=== PATIENT | male | born 1940 | race Caucasian/White ===

== ENCOUNTER 2016-09-25 08:08 | Day surgery (SDC) | payer OTHER ==
[~2016-09-25] VITALS: Ht 190.5 cm; Wt 97.7 kg
[~2016-09-25 08:08] MED LIST: ACET-1757 PO; AMIO200T PO; AMIO200T42 PO; AMLO2.5T PO; ASCO250T2 PO; ASPI-496 PO; ATOR10TA9 PO; AZIT-14 PO; BUDE0.5A; BUDE10.22 IH; CHOL100018 PO; CITA10TA4 PO; CYAN1SPR2 NAS; ENAL2.5T PO; FERR325T23 PO; FURO20TA3 PO; LEVA0.63 INH; LEVO500T33 PO; METH4TAB2 PO; MOME13HF INH; PRED10TA PO; RIVA15TA PO; RIVA20TA PO; SERT50TA5 PO; TIOT18CA INH
[2016-09-25 08:29] VITALS: BP 113/77
[2016-09-25 08:47] LABS: HEMOGLOBIN 10.8 g/dL (13.7-18.0)
[2016-09-25] MEDS ORDERED: FURO20TA3 PO (08:48)
[2016-09-25] MEDS ORDERED: FERR325T23 PO (08:48)
[2016-09-25] MEDS ORDERED: MOME13HF INH (08:48)
[2016-09-25] MEDS ORDERED: POTA10TA11 PO (08:50)
[2016-09-25 08:54] LABS: BLOOD UREA NITROGEN 20 mg/dL (7-18)
[2016-09-25] MEDS ORDERED: PROPOFOL 10 MG/ML, 20ML ONE (09:40)
== END 2016-09-25 11:15 | disposition home or self-care (01) ==
LOC: CACL 08:08
PROVIDERS: ATTEND Internal Medicine Cardiovascular Disease
DX: I48.0 Paroxysmal atrial fibrillation (principal); I10 Essential (primary) hypertension; I25.10 Atherosclerotic heart disease of native coronary artery without angina pectoris; J44.1 Chronic obstructive pulmonary disease with (acute) exacerbation; Z95.1 Presence of aortocoronary bypass graft; Z87.891 Personal history of nicotine dependence; G47.33 Obstructive sleep apnea (adult) (pediatric); I27.2 Other secondary pulmonary hypertension; Z99.81 Dependence on supplemental oxygen; E78.2 Mixed hyperlipidemia; E78.00 Pure hypercholesterolemia, unspecified; D64.9 Anemia, unspecified; I35.8 Other nonrheumatic aortic valve disorders; J96.11 Chronic respiratory failure with hypoxia; Z82.49 Family history of ischemic heart disease and other diseases of the circulatory system
CPT/HCPCS: 36415; 80048; 85025; 85610; 92960; 93005; J2704

== ENCOUNTER 2016-09-28 10:12 | Emergency (ER) | payer OTHER ==
[~2016-09-28] VITALS: Ht 190.5 cm; Wt 100.5 kg
[~2016-09-28 10:12] MED LIST changes: +POTA10TA11 PO
[2016-09-28] MEDS ORDERED: L.E.T SOLUTION TP ONE ×2 (10:48→11:00)
[2016-09-28] MEDS ORDERED: HYDROcodone/APAP 5/325 TABLET PO ONE (11:00)
[2016-09-28] MEDS ORDERED: HYDROcodone/APAP 5/325 TABLET ONE (11:22)
[2016-09-28 13:03] VITALS: BP 110/68
== END 2016-09-28 13:08 | disposition home or self-care (01) ==
LOC: ED 11:00
DX: S51.012A Laceration without foreign body of left elbow, initial encounter (principal); S81.012A Laceration without foreign body, left knee, initial encounter; S20.212A Contusion of left front wall of thorax, initial encounter; I48.91 Unspecified atrial fibrillation; I10 Essential (primary) hypertension; I25.2 Old myocardial infarction; J44.9 Chronic obstructive pulmonary disease, unspecified; W01.0XXA Fall on same level from slipping, tripping and stumbling without subsequent striking against object, initial encounter; Y93.01 Activity, walking, marching and hiking; Y99.8 Other external cause status; Y92.009 Unspecified place in unspecified non-institutional (private) residence as the place of occurrence of the external cause
CPT/HCPCS: 76705; 99284

== ENCOUNTER 2017-09-30 12:24 | Inpatient (IN) | payer OTHER ==
[~2017-09-30] VITALS: Ht 190.5 cm; Wt 103.5 kg
[~2017-09-30 12:24] MED LIST changes: -AZIT-14 PO; +AZIT250T89 PO; +CEFD300C37 PO; +CHOL100012 PO; -CHOL100018 PO; +DOXY100T PO; -LEVO500T33 PO; +LEVO500T47 PO; +PRED5TAB PO
[2017-09-30] MEDS ORDERED: ONDANSETRON 2MG/ML, 2ML IVPush ONE (14:00)
[2017-09-30] MEDS ORDERED: SODIUM CHLORIDE FLUSH 10ML SYR IVF ONE (14:00)
[2017-09-30] MEDS ORDERED: MORPHINE SULFATE 4 MG/ML, 1ML ONE ×2 (14:09→14:51)
[2017-09-30] MEDS ORDERED: ONDANSETRON ODT 4 MG ONE (14:09)
[2017-09-30] MEDS: MORPHINE SULFATE 4 MG/ML, 1ML IVPush PRN ×3 (14:11→19:33)
[2017-09-30 14:15] LABS: BASOPHILS # (AUTO) 0.05 x10^3/uL (0-0.1); BASOPHILS % (AUTO) 1 % (0-1); EOSINOPHILS # (AUTO) 0.09 x10^3/uL (0-0.4); EOSINOPHILS % (AUTO) 1 % (1-7); LYMPHOCYTES # (AUTO) 0.59 x10^3/uL (1-3.4); LYMPHOCYTES % (AUTO) 9 % (22-44); MD NO; MEAN CORPUSCULAR HEMOGLOBIN 31.4 pg (27.5-34.5); MEAN CORPUSCULAR HGB CONC 32.9 g/dL (33.2-36.2); MEAN CORPUSCULAR VOLUME 95.3 fL (81-97); MEAN PLATELET VOLUME 8.3 fL (7.4-10.4); MONOCYTES # (AUTO) 0.39 x10^3/uL (0.2-0.8); MONOCYTES % (AUTO) 6 % (2-9); NEUTROPHILS # (AUTO) 5.77 x10^3/uL (1.8-6.8); NEUTROPHILS % (AUTO) 84 % (42-75); PLATELET COUNT 186 x10^3/uL (130-400); RED BLOOD COUNT 3.59 x10^6/uL (4.38-5.82); RED CELL DISTRIBUTION WIDTH 14.4 % (9.4-14.8)
[2017-09-30 14:25] LABS: CHLORIDE 106 mmol/L (98-107)
[2017-09-30 14:26] LABS: ALANINE AMINOTRANSFERASE 24 U/L (12-78); ALBUMIN 4.1 g/dL (3.4-5.0); ANION GAP 8 mmol/L (5-15); CALCIUM 8.6 mg/dL (8.5-10.1); CREATININE 1.07 mg/dL (0.7-1.3)
[2017-09-30 14:28] LABS: ALKALINE PHOSPHATASE 72 U/L (45-117); BILIRUBIN,TOTAL 0.9 mg/dL (0.2-1.0); TOTAL PROTEIN 7.2 g/dL (6.4-8.2)
[2017-09-30] MEDS ORDERED: HYDROmorphone 2 MG/ML, 1ML ONE (15:20)
[2017-09-30] MEDS ORDERED: HYDROmorphone 1 MG/ML, 1ML IV ONE (15:30)
[2017-09-30] MEDS ORDERED: CEFOTETAN PMX 1GM/50ML 50 ML ONE (15:47)
[2017-09-30] MEDS ORDERED: CEFOTETAN PMX 1GM/50ML 50 ML IV ONE (16:00)
[2017-09-30 16:05] LABS: INTERNATIONAL NORMALIZED RATIO 1.24 (0.93-1.1); PROTHROMBIN TIME 12.7 Seconds (9.6-11.5)
[2017-09-30] MEDS ORDERED: ONDANSETRON ODT 4 MG PO PRN (17:00)
[2017-09-30] MEDS ORDERED: ONDANSETRON 2MG/ML, 2ML IVPush PRN (17:00)
[2017-09-30] MEDS ORDERED: PROMETHAZINE 25 MG/ML, 1ML IM PRN (17:00)
[2017-09-30] MEDS ORDERED: ALBUTEROL/IPRATROPIUM 2.5MG/0.5MG, 3 ML ONE (17:20)
[2017-09-30 18:20] VITALS: BP 105/65
[2017-09-30] MEDS ORDERED: ALBUTEROL SULFATE 2.5 MG/3 ML NPPB PRN (18:30)
[2017-09-30] MEDS ORDERED: IPRATROPIUM 0.5 MG/2.5 ML INHA NPPB SCH (18:30)
[2017-09-30] MEDS: METRONIDAZOLE PMX 500MG/100ML 100 ML IV SCH (19:33)
[2017-09-30] MEDS: ALBUTEROL/IPRATROPIUM 2.5MG/0.5MG, 3 ML NPPB SCH (20:00)
[2017-09-30] MEDS: ATORVASTATIN 10 MG TABLET PO SCH (20:48)
[2017-09-30] MEDS: CEFTRIAXONE PMX 1GM/50ML 50 ML IV SCH (21:19)
[2017-10-01 01:53] VITALS: BP 104/68
[2017-10-01] MEDS: METRONIDAZOLE PMX 500MG/100ML 100 ML IV SCH ×3 (04:18→20:12)
[2017-10-01] MEDS: MORPHINE SULFATE 4 MG/ML, 1ML IVPush PRN ×2 (04:55→08:41)
[2017-10-01 05:17] LABS: BASOPHILS # (AUTO) 0.04 x10^3/uL (0-0.1); BASOPHILS % (AUTO) 1 % (0-1); EOSINOPHILS % (AUTO) 2 % (1-7); LYMPHOCYTES # (AUTO) 0.88 x10^3/uL (1-3.4); LYMPHOCYTES % (AUTO) 13 % (22-44); MD NO; MEAN CORPUSCULAR HEMOGLOBIN 30.6 pg (27.5-34.5); MEAN CORPUSCULAR HGB CONC 32.2 g/dL (33.2-36.2); MEAN PLATELET VOLUME 8.4 fL (7.4-10.4); MONOCYTES % (AUTO) 9 % (2-9); NEUTROPHILS # (AUTO) 5.26 x10^3/uL (1.8-6.8); NEUTROPHILS % (AUTO) 77 % (42-75); PLATELET COUNT 178 x10^3/uL (130-400); RED BLOOD COUNT 3.65 x10^6/uL (4.38-5.82); RED CELL DISTRIBUTION WIDTH 14.3 % (9.4-14.8)
[2017-10-01 05:36] LABS: CALCIUM 8.6 mg/dL (8.5-10.1); CHLORIDE 103 mmol/L (98-107)
[2017-10-01 05:42] LABS: ALANINE AMINOTRANSFERASE 21 U/L (12-78); ALKALINE PHOSPHATASE 72 U/L (45-117); ANION GAP 7 mmol/L (5-15); BILIRUBIN,TOTAL 0.9 mg/dL (0.2-1.0); CREATININE 1.16 mg/dL (0.7-1.3)
[2017-10-01 05:52] LABS: CULTURE INDICATED? NO; MICROSCOPIC NOT IND
[2017-10-01] MEDS: ALBUTEROL/IPRATROPIUM 2.5MG/0.5MG, 3 ML NPPB SCH ×4 (06:49→19:34)
[2017-10-01] MEDS ORDERED: BUPIVACAINE/PF 0.5% ONE (06:58)
[2017-10-01 08:11] VITALS: BP 108/65
[2017-10-01] MEDS: FLUTICASONE/VILANTEROL 200-25MCG/INH INH SCH (08:40)
[2017-10-01] MEDS: SERTRALINE 50MG TABLET PO SCH (08:40)
[2017-10-01] MEDS: TAMSULOSIN 0.4 MG CAP.ER.24H PO SCH (09:00)
[2017-10-01 12:42] VITALS: BP 99/59
[2017-10-01] MEDS ORDERED: SUGAMMADEX 200 MG/2 ML IVPush ONE ×3 (14:57→17:03)
[2017-10-01] MEDS ORDERED: FENTANYL PF 250 MCG/5ML ONE (16:17)
[2017-10-01] MEDS ORDERED: PROPOFOL 10 MG/ML, 20ML ONE (16:33)
[2017-10-01] MEDS ORDERED: ONDANSETRON 2MG/ML, 2ML ONE (16:33)
[2017-10-01] MEDS ORDERED: PHENYLEPHRINE 10 MG/ML ONE (16:33)
[2017-10-01] MEDS ORDERED: CEFAZOLIN 1,000 MG ONE (16:33)
[2017-10-01] MEDS ORDERED: ALBUTEROL SULFATE 200 PUFFS/8.5 GR INH ONE (16:33)
[2017-10-01] MEDS ORDERED: GLYCOPYRROLATE 0.2MG/1ML, 5ML ONE (16:33)
[2017-10-01] MEDS ORDERED: ROCURONIUM 10 MG/ML,10ML ONE (16:33)
[2017-10-01] MEDS ORDERED: DEXAMETHASONE 4 MG/ML, 1ML ONE (16:33)
[2017-10-01] MEDS ORDERED: NEOSTIGMINE 1 MG/ML, 10ML ONE (16:33)
[2017-10-01] MEDS ORDERED: BUPIVACAINE/PF-EPI 0.5% 1:200K IM ONE (17:03)
[2017-10-01] MEDS ORDERED: ACETAMINOPHEN 325 MG TABLET PO PRN (17:30)
[2017-10-01] MEDS ORDERED: ALBUTEROL/IPRATROPIUM 2.5MG/0.5MG, 3 ML NPPB PRN (17:30)
[2017-10-01] MEDS ORDERED: HYDROmorphone 1 MG/ML, 1ML IV PRN (17:30)
[2017-10-01] MEDS ORDERED: morphine SULFATE 10 MG/ML, 1ML IV PRN (17:30)
[2017-10-01] MEDS ORDERED: LABETALOL 5MG/ML, 20ML IV PRN (17:30)
[2017-10-01] MEDS ORDERED: OXYcodone 5 MG/5 ML ORAL.SOL UDC PO PRN (17:30)
[2017-10-01] MEDS ORDERED: hydrALAzine 20 MG/ML, 1ML IV PRN (17:30)
[2017-10-01] MEDS ORDERED: OXYcodone 5 MG/5 ML ORAL.SOL UDC ONE (17:48)
[2017-10-01] MEDS ORDERED: ACETAMINOPHEN 650 MG/20.3 ML UDC ONE (17:48)
[2017-10-01] MEDS ORDERED: FENTANYL PF 100 MCG/2ML ONE (17:48)
[2017-10-01] MEDS ORDERED: ALBUTEROL/IPRATROPIUM 2.5MG/0.5MG, 3 ML ONE (18:04)
[2017-10-01] MEDS: FENTANYL PF 100 MCG/2ML IV PRN ×2 (18:10→18:20)
[2017-10-01 18:50] VITALS: BP 115/59
[2017-10-01] MEDS: CEFTRIAXONE PMX 1GM/50ML 50 ML IV SCH (21:29)
[2017-10-01] MEDS: ATORVASTATIN 10 MG TABLET PO SCH (22:05)
[2017-10-01 23:30] VITALS: BP 118/71
[2017-10-02 03:15] VITALS: BP 122/71
[2017-10-02] MEDS: METRONIDAZOLE PMX 500MG/100ML 100 ML IV SCH ×3 (03:48→20:34)
[2017-10-02 05:57] LABS: BASOPHILS # (AUTO) 0.01 x10^3/uL (0-0.1); BASOPHILS % (AUTO) 0 % (0-1); EOSINOPHILS % (AUTO) 0 % (1-7); LYMPHOCYTES # (AUTO) 0.23 x10^3/uL (1-3.4); LYMPHOCYTES % (AUTO) 4 % (22-44); MD NO; MEAN CORPUSCULAR HEMOGLOBIN 31.7 pg (27.5-34.5); MEAN CORPUSCULAR HGB CONC 33.5 g/dL (33.2-36.2); MEAN CORPUSCULAR VOLUME 94.7 fL (81-97); MEAN PLATELET VOLUME 8.8 fL (7.4-10.4); MONOCYTES # (AUTO) 0.33 x10^3/uL (0.2-0.8); MONOCYTES % (AUTO) 5 % (2-9); NEUTROPHILS # (AUTO) 5.71 x10^3/uL (1.8-6.8); NEUTROPHILS % (AUTO) 91 % (42-75); PLATELET COUNT 143 x10^3/uL (130-400); RED BLOOD COUNT 3.35 x10^6/uL (4.38-5.82); RED CELL DISTRIBUTION WIDTH 14.5 % (9.4-14.8)
[2017-10-02 06:05] LABS: CHLORIDE 103 mmol/L (98-107)
[2017-10-02 06:13] LABS: ALANINE AMINOTRANSFERASE 25 U/L (12-78); ALBUMIN 3.5 g/dL (3.4-5.0); ALKALINE PHOSPHATASE 64 U/L (45-117); ANION GAP 9 mmol/L (5-15); BILIRUBIN,TOTAL 0.8 mg/dL (0.2-1.0); CALCIUM 8.5 mg/dL (8.5-10.1); CREATININE 0.98 mg/dL (0.7-1.3); TOTAL PROTEIN 6.4 g/dL (6.4-8.2)
[2017-10-02] MEDS: ALBUTEROL/IPRATROPIUM 2.5MG/0.5MG, 3 ML NPPB SCH ×4 (07:00→19:28)
[2017-10-02 07:56] VITALS: BP 115/58
[2017-10-02] MEDS: FLUTICASONE/VILANTEROL 200-25MCG/INH INH SCH (09:00)
[2017-10-02] MEDS: FERROUS SULFATE 325 MG TABLET PO SCH (09:42)
[2017-10-02] MEDS: FUROSEMIDE 20 MG TABLET PO SCH (09:42)
[2017-10-02] MEDS: SERTRALINE 50MG TABLET PO SCH (09:42)
[2017-10-02] MEDS: TAMSULOSIN 0.4 MG CAP.ER.24H PO SCH (09:42)
[2017-10-02 12:36] VITALS: BP 117/63
[2017-10-02] MEDS: SODIUM CHLORIDE 0.9% 1,000 ML IV SCH (15:30)
[2017-10-02 19:21] VITALS: BP 101/64
[2017-10-02] MEDS: ACETAMINOPHEN 325 MG TABLET PO PRN (20:47)
[2017-10-02] MEDS: ATORVASTATIN 10 MG TABLET PO SCH (20:47)
[2017-10-02] MEDS: CEFTRIAXONE PMX 1GM/50ML 50 ML IV SCH (22:03)
[2017-10-03 02:02] VITALS: BP 100/64
[2017-10-03] MEDS: SODIUM CHLORIDE 0.9% 1,000 ML IV SCH ×3 (02:20→23:23)
[2017-10-03] MEDS: ACETAMINOPHEN 325 MG TABLET PO PRN ×3 (02:34→22:28)
[2017-10-03] MEDS: METRONIDAZOLE PMX 500MG/100ML 100 ML IV SCH ×3 (04:19→20:50)
[2017-10-03 05:05] LABS: BASOPHILS # (AUTO) 0.03 x10^3/uL (0-0.1); BASOPHILS % (AUTO) 1 % (0-1); EOSINOPHILS # (AUTO) 0.09 x10^3/uL (0-0.4); EOSINOPHILS % (AUTO) 2 % (1-7); LYMPHOCYTES # (AUTO) 0.51 x10^3/uL (1-3.4); LYMPHOCYTES % (AUTO) 9 % (22-44); MD NO; MEAN CORPUSCULAR HEMOGLOBIN 31.1 pg (27.5-34.5); MEAN CORPUSCULAR HGB CONC 33.2 g/dL (33.2-36.2); MEAN CORPUSCULAR VOLUME 93.9 fL (81-97); MEAN PLATELET VOLUME 8.6 fL (7.4-10.4); MONOCYTES # (AUTO) 0.56 x10^3/uL (0.2-0.8); MONOCYTES % (AUTO) 10 % (2-9); NEUTROPHILS # (AUTO) 4.54 x10^3/uL (1.8-6.8); NEUTROPHILS % (AUTO) 79 % (42-75); PLATELET COUNT 150 x10^3/uL (130-400); RED BLOOD COUNT 3.37 x10^6/uL (4.38-5.82); RED CELL DISTRIBUTION WIDTH 14.3 % (9.4-14.8)
[2017-10-03 05:18] LABS: CHLORIDE 105 mmol/L (98-107)
[2017-10-03 05:29] LABS: ANION GAP 6 mmol/L (5-15); CALCIUM 8.4 mg/dL (8.5-10.1); CREATININE 1.01 mg/dL (0.7-1.3)
[2017-10-03 07:30] VITALS: BP 102/61
[2017-10-03] MEDS ORDERED: BISACODYL 10 MG SUPP PR PRN (07:30)
[2017-10-03] MEDS: ALBUTEROL/IPRATROPIUM 2.5MG/0.5MG, 3 ML NPPB SCH ×7 (08:08→19:10)
[2017-10-03] MEDS: TAMSULOSIN 0.4 MG CAP.ER.24H PO SCH (08:20)
[2017-10-03] MEDS: FLUTICASONE/VILANTEROL 200-25MCG/INH INH SCH (08:20)
[2017-10-03] MEDS: SERTRALINE 50MG TABLET PO SCH (08:20)
[2017-10-03] MEDS: FUROSEMIDE 20 MG TABLET PO SCH (08:20)
[2017-10-03] MEDS: CHOLECALCIFEROL 1,000 UNIT TABLET PO SCH (09:25)
[2017-10-03] MEDS: POLYETHYLENE GLYCOL 17 GM PACKET PO SCH (09:25)
[2017-10-03] MEDS: RIVAROXABAN 20 MG TABLET PO SCH (09:25)
[2017-10-03] MEDS: ASCORBIC ACID 500 MG TABLET PO SCH (09:25)
[2017-10-03] MEDS: POTASSIUM CHLORIDE 20 MEQ TAB.ER.PRT PO SCH (09:25)
[2017-10-03] MEDS: SIMETHICONE 125 MG CHEW TAB PO SCH ×3 (12:14→23:22)
[2017-10-03 13:20] VITALS: BP 133/72
[2017-10-03 18:41] VITALS: BP 111/60
[2017-10-03] MEDS: ATORVASTATIN 10 MG TABLET PO SCH (20:50)
[2017-10-03] MEDS: CEFTRIAXONE PMX 1GM/50ML 50 ML IV SCH (22:28)
[2017-10-04 00:23] VITALS: BP 98/51
[2017-10-04 01:55] VITALS: BP 134/76
[2017-10-04] MEDS: METRONIDAZOLE PMX 500MG/100ML 100 ML IV SCH (04:30)
[2017-10-04 05:27] LABS: ANION GAP 7 mmol/L (5-15); CALCIUM 8.5 mg/dL (8.5-10.1); CHLORIDE 102 mmol/L (98-107)
[2017-10-04 05:28] LABS: CREATININE 0.87 mg/dL (0.7-1.3)
[2017-10-04 05:33] LABS: BASOPHILS # (AUTO) 0.03 x10^3/uL (0-0.1); BASOPHILS % (AUTO) 1 % (0-1); EOSINOPHILS # (AUTO) 0.18 x10^3/uL (0-0.4); EOSINOPHILS % (AUTO) 3 % (1-7); LYMPHOCYTES # (AUTO) 0.55 x10^3/uL (1-3.4); LYMPHOCYTES % (AUTO) 8 % (22-44); MD NO; MEAN CORPUSCULAR HEMOGLOBIN 30.5 pg (27.5-34.5); MEAN CORPUSCULAR HGB CONC 32.8 g/dL (33.2-36.2); MEAN CORPUSCULAR VOLUME 93.1 fL (81-97); MEAN PLATELET VOLUME 8.7 fL (7.4-10.4); MONOCYTES # (AUTO) 0.63 x10^3/uL (0.2-0.8); MONOCYTES % (AUTO) 9 % (2-9); NEUTROPHILS # (AUTO) 5.27 x10^3/uL (1.8-6.8); NEUTROPHILS % (AUTO) 79 % (42-75); PLATELET COUNT 183 x10^3/uL (130-400); RED BLOOD COUNT 3.77 x10^6/uL (4.38-5.82)
[2017-10-04 06:35] VITALS: BP 115/54
[2017-10-04] MEDS: SIMETHICONE 125 MG CHEW TAB PO SCH (06:38)
[2017-10-04] MEDS: SODIUM CHLORIDE 0.9% 1,000 ML IV SCH (07:30)
[2017-10-04] MEDS: RIVAROXABAN 20 MG TABLET PO SCH (07:56)
[2017-10-04] MEDS: TAMSULOSIN 0.4 MG CAP.ER.24H PO SCH ×2 (07:56→08:05)
[2017-10-04] MEDS: CHOLECALCIFEROL 1,000 UNIT TABLET PO SCH (07:56)
[2017-10-04] MEDS: POTASSIUM CHLORIDE 20 MEQ TAB.ER.PRT PO SCH (07:57)
[2017-10-04] MEDS: FERROUS SULFATE 325 MG TABLET PO SCH (07:57)
[2017-10-04] MEDS: FUROSEMIDE 20 MG TABLET PO SCH ×2 (07:57→08:05)
[2017-10-04] MEDS: ASCORBIC ACID 500 MG TABLET PO SCH (07:57)
[2017-10-04] MEDS: SERTRALINE 50MG TABLET PO SCH (08:03)
[2017-10-04] MEDS: POLYETHYLENE GLYCOL 17 GM PACKET PO SCH (08:04)
[2017-10-04] MEDS: FLUTICASONE/VILANTEROL 200-25MCG/INH INH SCH (09:00)
[2017-10-04] MEDS ORDERED: SIME125T10 PO (10:06)
[2017-10-04] MEDS ORDERED: TAMS-11 PO (10:06)
[2017-10-04] MEDS ORDERED: TRAM50TA2 PO (10:06)
[2017-10-04 11:30] VITALS: BP 116/61
[2017-10-04] MEDS ORDERED: METO25TA91 PO (12:04)
== END 2017-10-04 11:50 | disposition home or self-care (01) | DRG 417 ==
LOC: ED 15:23 → EDIP 16:16 → 4NOR 18:08
PROVIDERS: ADMIT Hospitalist; ATTEND Hospitalist
PROC: 0FT44ZZ Resection of Gallbladder, Percutaneous Endoscopic Approach (ICD-10-PCS; principal; 2017-10-01 17:00)
DX: K80.00 Calculus of gallbladder with acute cholecystitis without obstruction (principal); J96.21 Acute and chronic respiratory failure with hypoxia; D68.69 Other thrombophilia; I50.32 Chronic diastolic (congestive) heart failure; I07.1 Rheumatic tricuspid insufficiency; I11.0 Hypertensive heart disease with heart failure; I48.0 Paroxysmal atrial fibrillation; E78.5 Hyperlipidemia, unspecified; I25.10 Atherosclerotic heart disease of native coronary artery without angina pectoris; I35.0 Nonrheumatic aortic (valve) stenosis; I25.2 Old myocardial infarction; Z79.01 Long term (current) use of anticoagulants; Z99.81 Dependence on supplemental oxygen; Z82.49 Family history of ischemic heart disease and other diseases of the circulatory system; Z87.891 Personal history of nicotine dependence; Z86.711 Personal history of pulmonary embolism; Z90.49 Acquired absence of other specified parts of digestive tract; Z95.1 Presence of aortocoronary bypass graft
CPT/HCPCS: 36415; 71045; 80048; 80053; 81003; 83690; 83735; 84100; 85025; 85610; 85730; 88304; 93005; 94640; 96365; 96375; 96376; J0690; J0696; J1100; J1170; J2405; J2704; J2710; J3010; J3490; J7620; J2370; J7030; S0074

== ENCOUNTER → 2018-06-23 | Outpatient (CLI) | payer MEDICARE ==
[~2018-06-23] MED LIST changes: -AMLO2.5T PO; +AMLO2.5T3 PO; +METO25TA91 PO; +SIME125T10 PO; +SPIR25TA PO; +TAMS-11 PO; +TRAM50TA2 PO
== END | disposition home or self-care (01) ==
LOC: CFH 08:40
PROVIDERS: ATTEND Family Medicine
DX: J44.9 Chronic obstructive pulmonary disease, unspecified (principal)
CPT/HCPCS: 71046

== ENCOUNTER 2018-06-29 15:05 | Inpatient (IN) | payer MEDICARE ==
[~2018-06-29] VITALS: Ht 190.5 cm; Wt 98.6 kg
[~2018-06-29 15:05] MED LIST changes: -AMLO2.5T3 PO; +AMLO2.5T5 PO; +SERT50TA28 PO; -SERT50TA5 PO
[2018-06-29 15:36] LABS: BASOPHILS # (AUTO) 0.16 x10^3/uL (0-0.1); BASOPHILS % (AUTO) 1 % (0-1); EOSINOPHILS # (AUTO) 0.01 x10^3/uL (0-0.4); EOSINOPHILS % (AUTO) 0 % (1-7); LYMPHOCYTES # (AUTO) 0.53 x10^3/uL (1-3.4); LYMPHOCYTES % (AUTO) 3 % (22-44); MD NO; MEAN CORPUSCULAR HEMOGLOBIN 31.4 pg (27.5-34.5); MEAN CORPUSCULAR HGB CONC 32.9 g/dL (33.2-36.2); MEAN CORPUSCULAR VOLUME 95.3 fL (81-97); MONOCYTES # (AUTO) 0.63 x10^3/uL (0.2-0.8); MONOCYTES % (AUTO) 4 % (2-9); NEUTROPHILS # (AUTO) 15.42 x10^3/uL (1.8-6.8); NEUTROPHILS % (AUTO) 92 % (42-75); PLATELET COUNT 214 x10^3/uL (130-400); RED BLOOD COUNT 4.19 x10^6/uL (4.38-5.82)
[2018-06-29 15:48] LABS: ALANINE AMINOTRANSFERASE 54 U/L (12-78); ALBUMIN 4.1 g/dL (3.4-5.0); ANION GAP 8 mmol/L (5-15); CALCIUM 9.3 mg/dL (8.5-10.1); CHLORIDE 103 mmol/L (98-107); CREATININE 1.24 mg/dL (0.7-1.3)
[2018-06-29 15:51] LABS: ALKALINE PHOSPHATASE 86 U/L (45-117); BILIRUBIN,TOTAL 0.8 mg/dL (0.2-1.0); TOTAL PROTEIN 6.9 g/dL (6.4-8.2)
--- NOTE | 2018-06-29 17:10 | NUR ---
FROM LOBBY TO ROOM AT THIS TIME
--- NOTE | 2018-06-29 17:21 | NUR ---
PT ARRIVES TO ED WITH C/O OF LEFT ELBOW SWELLING SINCE FRIDAY. PT WAS PLACE DON ABX AT BUT NO CHNAGE HAS BEEN NOTED. PT IS ALSO ON XERALTO WELL. PT DENIES ANY TRUAMA AND REPORTS JUST STARTED FORMING. PT IS ON 3L NC O2 CONCENTRATOR AT HOME. PT HAS GOOD CMS INTACT TO LEFT ARM. PT DOES HAVE BRUSING ON ARMS BUT REPORTS ITS DUE TO THE BLOOD THINNING MEDICATIONS AND IS NORMAL FOR HIM. PT CONNECTED TO MONITORS AND CALL LIGHT IN REACH.
--- NOTE | 2018-06-29 17:43 | NUR ---
piv placed, abx to be started.
[2018-06-29] MEDS ORDERED: VANCOMYCIN 1,700 MG in SODIUM CHLORIDE 0.9% 250 ML IV SCH (18:00)
[2018-06-29] MEDS ORDERED: VANCOMYCIN 1,700 MG in SODIUM CHLORIDE 0.9% 250 ML IV ONE (18:00)
[2018-06-29] MEDS ORDERED: VANCOMYCIN PER PHARMACY MC PRN ×2 (18:00→18:30)
[2018-06-29] MEDS ORDERED: AMPICILLIN/SULBACTAM 3 GM in SODIUM CHLORIDE 0.9% 100 ML IV ONE (18:00)
--- NOTE | 2018-06-29 18:59 | NUR ---
DEALY IN VANCOMYCIN IV DUE TO PHARMACY MAKING BAG.
--- NOTE | 2018-06-29 19:27 | NUR ---
REPORT TO POLA LUCIO
[2018-06-29] MEDS ORDERED: hydrALAzine 20 MG/ML, 1ML IVPush PRN (19:30)
[2018-06-29] MEDS ORDERED: ONDANSETRON ODT 4 MG PO PRN (19:30)
[2018-06-29] MEDS ORDERED: ACETAMINOPHEN 325 MG TABLET PO PRN (19:30)
[2018-06-29] MEDS ORDERED: DOCUSATE 100 MG CAPSULE PO PRN (19:30)
[2018-06-29] MEDS ORDERED: LIDODERM 5% PATCH TD PRN (19:30)
[2018-06-29] MEDS ORDERED: ALBUTEROL SULFATE 2.5MG/0.5ML NEB PRN (19:30)
[2018-06-29 20:02] VITALS: BP 128/78
[2018-06-29] MEDS ORDERED: ALBUTEROL/IPRATROPIUM 2.5MG/0.5MG, 3 ML ONE (20:28)
[2018-06-29] MEDS ORDERED: PHARMACOKINETIC MONITORING MC PRN (20:30)
[2018-06-29] MEDS ORDERED: PHARMACOKINETIC CONSULTATION MC ONE (20:30)
[2018-06-29] MEDS ORDERED: ALBUTEROL SULFATE 2.5MG/0.5ML NPPB SCH (20:30)
[2018-06-29] MEDS: BUDESONIDE 0.5 MG/2 ML INHA INH SCH (20:50)
[2018-06-29] MEDS: ALBUTEROL/IPRATROPIUM 2.5MG/0.5MG, 3 ML NPPB SCH (20:50)
[2018-06-29] MEDS ORDERED: ALBUTEROL/IPRATROPIUM 2.5MG/0.5MG, 3 ML NPPB PRN (21:00)
[2018-06-29] MEDS: ASCORBIC ACID 500 MG TABLET PO SCH (21:00)
[2018-06-29] MEDS: CHOLECALCIFEROL 1,000 UNIT TABLET PO SCH (21:00)
[2018-06-29] MEDS: ATORVASTATIN 10 MG TABLET PO SCH (22:29)
[2018-06-30 02:00] VITALS: BP 127/77
[2018-06-30] MEDS: AMPICILLIN/SULBACTAM 3 GM in SODIUM CHLORIDE 0.9% 100 ML IV SCH ×3 (02:28→17:32)
[2018-06-30] MEDS: DIPHENHYDRAMINE 25 MG CAPSULE PO PRN ×2 (02:38→20:09)
[2018-06-30] MEDS: ALBUTEROL/IPRATROPIUM 2.5MG/0.5MG, 3 ML NPPB SCH ×4 (03:00→20:45)
[2018-06-30] MEDS: BUDESONIDE 0.5 MG/2 ML INHA INH SCH ×2 (06:49→20:45)
[2018-06-30 07:38] LABS: BASOPHILS # (AUTO) 0.23 x10^3/uL (0-0.1); BASOPHILS % (AUTO) 2 % (0-1); EOSINOPHILS # (AUTO) 0.14 x10^3/uL (0-0.4); EOSINOPHILS % (AUTO) 1 % (1-7); LYMPHOCYTES # (AUTO) 0.78 x10^3/uL (1-3.4); LYMPHOCYTES % (AUTO) 7 % (22-44); MD NO; MEAN CORPUSCULAR HEMOGLOBIN 30.6 pg (27.5-34.5); MEAN CORPUSCULAR HGB CONC 32.1 g/dL (33.2-36.2); MEAN CORPUSCULAR VOLUME 95.3 fL (81-97); MEAN PLATELET VOLUME 8.9 fL (7.4-10.4); MONOCYTES # (AUTO) 0.73 x10^3/uL (0.2-0.8); MONOCYTES % (AUTO) 6 % (2-9); NEUTROPHILS # (AUTO) 9.59 x10^3/uL (1.8-6.8); NEUTROPHILS % (AUTO) 84 % (42-75); PLATELET COUNT 182 x10^3/uL (130-400); RED BLOOD COUNT 4.06 x10^6/uL (4.38-5.82); RED CELL DISTRIBUTION WIDTH 16.3 % (9.4-14.8)
[2018-06-30 07:43] LABS: ALBUMIN 3.8 g/dL (3.4-5.0); ANION GAP 4 mmol/L (5-15); CALCIUM 9.2 mg/dL (8.5-10.1); CHLORIDE 102 mmol/L (98-107)
[2018-06-30 07:47] LABS: ALANINE AMINOTRANSFERASE 51 U/L (12-78); ALKALINE PHOSPHATASE 76 U/L (45-117); BILIRUBIN,TOTAL 0.8 mg/dL (0.2-1.0); CREATININE 1.27 mg/dL (0.7-1.3); TOTAL PROTEIN 6.6 g/dL (6.4-8.2)
[2018-06-30 08:00] VITALS: BP 103/62
[2018-06-30] MEDS ORDERED: RIVAROXABAN 20 MG TABLET PO SCH (09:00)
[2018-06-30] MEDS ORDERED: IPRATROPIUM 0.5 MG/2.5 ML INHA HHN SCH (09:00)
[2018-06-30] MEDS: CHOLECALCIFEROL 1,000 UNIT TABLET PO SCH ×2 (09:17→20:08)
[2018-06-30] MEDS: ASCORBIC ACID 500 MG TABLET PO SCH ×2 (09:17→20:08)
[2018-06-30] MEDS: SERTRALINE 50MG TABLET PO SCH (09:17)
[2018-06-30] MEDS: FUROSEMIDE 20 MG TABLET PO SCH (09:17)
[2018-06-30] MEDS ORDERED: HEPARIN 5,000 UNITS/ML, 1ML IV ONE (10:00)
[2018-06-30] MEDS ORDERED: HEPARIN 5,000 UNITS/ML, 1ML IV PRN (10:00)
[2018-06-30] MEDS ORDERED: HEPARIN 25,000 UNITS/500ML PMX 500 ML IV PRN (10:00)
[2018-06-30 10:18] LABS: INTERNATIONAL NORMALIZED RATIO 1.17 (0.93-1.1); PROTHROMBIN TIME 12.3 Seconds (9.6-11.5)
[2018-06-30] MEDS ORDERED: GADOBUTROL 10 MMOL/10 ML PFS ONE (10:27)
[2018-06-30 12:04] VITALS: BP 97/58
[2018-06-30] MEDS: RIVAROXABAN 20 MG TABLET PO SCH (16:32)
[2018-06-30] MEDS: VANCOMYCIN 1,700 MG in SODIUM CHLORIDE 0.9% 250 ML IV SCH (17:32)
[2018-06-30 20:00] VITALS: BP 105/66
[2018-06-30] MEDS: ATORVASTATIN 10 MG TABLET PO SCH (20:09)
[2018-07-01 01:24] VITALS: BP 117/74
[2018-07-01] MEDS: AMPICILLIN/SULBACTAM 3 GM in SODIUM CHLORIDE 0.9% 100 ML IV SCH ×3 (01:36→18:20)
[2018-07-01] MEDS: ALBUTEROL/IPRATROPIUM 2.5MG/0.5MG, 3 ML NPPB SCH ×4 (03:00→21:00)
[2018-07-01 05:28] LABS: BASOPHILS # (AUTO) 0.03 x10^3/uL (0-0.1); BASOPHILS % (AUTO) 0 % (0-1); EOSINOPHILS # (AUTO) 0.11 x10^3/uL (0-0.4); EOSINOPHILS % (AUTO) 1 % (1-7); LYMPHOCYTES # (AUTO) 0.34 x10^3/uL (1-3.4); LYMPHOCYTES % (AUTO) 4 % (22-44); MD NO; MEAN CORPUSCULAR HEMOGLOBIN 31.8 pg (27.5-34.5); MEAN CORPUSCULAR HGB CONC 33.5 g/dL (33.2-36.2); MEAN CORPUSCULAR VOLUME 94.8 fL (81-97); MONOCYTES # (AUTO) 0.52 x10^3/uL (0.2-0.8); MONOCYTES % (AUTO) 6 % (2-9); NEUTROPHILS # (AUTO) 7.68 x10^3/uL (1.8-6.8); NEUTROPHILS % (AUTO) 89 % (42-75); PLATELET COUNT 157 x10^3/uL (130-400); RED BLOOD COUNT 3.76 x10^6/uL (4.38-5.82); RED CELL DISTRIBUTION WIDTH 15.4 % (9.4-14.8)
[2018-07-01 05:35] LABS: CHLORIDE 102 mmol/L (98-107)
[2018-07-01 05:45] LABS: ALANINE AMINOTRANSFERASE 44 U/L (12-78); ALBUMIN 3.4 g/dL (3.4-5.0); ALKALINE PHOSPHATASE 71 U/L (45-117); ANION GAP 5 mmol/L (5-15); CALCIUM 8.7 mg/dL (8.5-10.1); CREATININE 1.08 mg/dL (0.7-1.3); TOTAL PROTEIN 6.2 g/dL (6.4-8.2)
[2018-07-01] MEDS: BUDESONIDE 0.5 MG/2 ML INHA INH SCH ×2 (06:33→21:00)
[2018-07-01 07:44] VITALS: BP 92/51
[2018-07-01] MEDS: FUROSEMIDE 20 MG TABLET PO SCH ×2 (09:00→09:29)
[2018-07-01] MEDS ORDERED: FERROUS SULFATE 325 MG TABLET PO SCH (09:00)
[2018-07-01] MEDS: ASCORBIC ACID 500 MG TABLET PO SCH (09:29)
[2018-07-01] MEDS: FERROUS SULFATE 325 MG TABLET PO SCH (09:29)
[2018-07-01] MEDS: SERTRALINE 50MG TABLET PO SCH (09:30)
[2018-07-01] MEDS: CHOLECALCIFEROL 1,000 UNIT TABLET PO SCH (09:30)
[2018-07-01 13:40] VITALS: BP 100/64
[2018-07-01] MEDS: RIVAROXABAN 20 MG TABLET PO SCH (18:20)
[2018-07-01] MEDS: VANCOMYCIN 1,700 MG in SODIUM CHLORIDE 0.9% 250 ML IV SCH (18:58)
[2018-07-01 19:40] VITALS: BP 114/62
[2018-07-01] MEDS: DIPHENHYDRAMINE 25 MG CAPSULE PO PRN (21:32)
[2018-07-01] MEDS: ATORVASTATIN 10 MG TABLET PO SCH (21:32)
[2018-07-02] MEDS: AMPICILLIN/SULBACTAM 3 GM in SODIUM CHLORIDE 0.9% 100 ML IV SCH ×3 (01:54→17:31)
[2018-07-02 02:00] VITALS: BP 133/78
[2018-07-02] MEDS: ALBUTEROL/IPRATROPIUM 2.5MG/0.5MG, 3 ML NPPB SCH ×4 (03:00→21:40)
[2018-07-02 06:02] LABS: ALBUMIN 3.4 g/dL (3.4-5.0); ANION GAP 6 mmol/L (5-15); CALCIUM 8.9 mg/dL (8.5-10.1); CHLORIDE 103 mmol/L (98-107)
[2018-07-02] MEDS: BUDESONIDE 0.5 MG/2 ML INHA INH SCH ×2 (06:32→21:40)
[2018-07-02 07:30] VITALS: BP 112/71
[2018-07-02] MEDS: ASCORBIC ACID 500 MG TABLET PO SCH (09:00)
[2018-07-02] MEDS: CHOLECALCIFEROL 1,000 UNIT TABLET PO SCH (09:00)
[2018-07-02] MEDS: FUROSEMIDE 20 MG TABLET PO SCH (09:00)
[2018-07-02] MEDS: SERTRALINE 50MG TABLET PO SCH (09:00)
[2018-07-02 13:36] VITALS: BP 109/67
[2018-07-02] MEDS: RIVAROXABAN 20 MG TABLET PO SCH (17:30)
[2018-07-02] MEDS: VANCOMYCIN 1,700 MG in SODIUM CHLORIDE 0.9% 250 ML IV SCH ×2 (18:22→18:26)
[2018-07-02] MEDS: ATORVASTATIN 10 MG TABLET PO SCH (19:35)
[2018-07-02 20:00] VITALS: BP 109/65
[2018-07-02] MEDS: DIPHENHYDRAMINE 25 MG CAPSULE PO PRN (20:45)
[2018-07-03 02:00] VITALS: BP 117/74
[2018-07-03] MEDS: AMPICILLIN/SULBACTAM 3 GM in SODIUM CHLORIDE 0.9% 100 ML IV SCH ×2 (02:04→10:00)
[2018-07-03] MEDS: ALBUTEROL/IPRATROPIUM 2.5MG/0.5MG, 3 ML NPPB SCH ×2 (03:00→07:41)
[2018-07-03 07:15] VITALS: BP 117/82
[2018-07-03] MEDS: BUDESONIDE 0.5 MG/2 ML INHA INH SCH (07:41)
[2018-07-03] MEDS: SERTRALINE 50MG TABLET PO SCH (08:17)
[2018-07-03] MEDS: FUROSEMIDE 20 MG TABLET PO SCH (08:17)
[2018-07-03] MEDS: FERROUS SULFATE 325 MG TABLET PO SCH (08:17)
[2018-07-03] MEDS: CHOLECALCIFEROL 1,000 UNIT TABLET PO SCH (08:17)
[2018-07-03] MEDS: ASCORBIC ACID 500 MG TABLET PO SCH (08:17)
[2018-07-03] MEDS ORDERED: PRED10TA PO (08:47)
[2018-07-03] MEDS ORDERED: DOXY100T10 PO (08:47)
[2018-07-03] MEDS ORDERED: AMOX1TAB61 PO (08:47)
== END 2018-07-03 11:40 | disposition home health service (06) | DRG 872 ==
LOC: ED 17:41 → EDIP 17:58 → 3NE 19:50 → DCLOUNGE 07-03 11:10
PROVIDERS: ADMIT Internal Medicine; ATTEND Internal Medicine
DX: A41.9 Sepsis, unspecified organism (principal); L03.114 Cellulitis of left upper limb; J96.10 Chronic respiratory failure, unspecified whether with hypoxia or hypercapnia; J44.1 Chronic obstructive pulmonary disease with (acute) exacerbation; D68.69 Other thrombophilia; I50.32 Chronic diastolic (congestive) heart failure; I48.2 Chronic atrial fibrillation; E78.5 Hyperlipidemia, unspecified; I11.0 Hypertensive heart disease with heart failure; I48.0 Paroxysmal atrial fibrillation; I25.10 Atherosclerotic heart disease of native coronary artery without angina pectoris; I25.2 Old myocardial infarction; Z79.01 Long term (current) use of anticoagulants; Z82.49 Family history of ischemic heart disease and other diseases of the circulatory system; Z86.711 Personal history of pulmonary embolism; Z87.891 Personal history of nicotine dependence; Z95.1 Presence of aortocoronary bypass graft; Z99.81 Dependence on supplemental oxygen; Z90.49 Acquired absence of other specified parts of digestive tract
CPT/HCPCS: 36415; 80048; 80053; 80202; 82040; 83605; 84145; 85025; 85610; 85730; 87040; 94640; 96374; 96375; 99285; A9585; G0378; J0295; J3370; J7620; J7626; J7050; J7512; Q0163

== ENCOUNTER 2018-07-22 22:48 | Inpatient (IN) | payer MEDICARE ==
[~2018-07-22] VITALS: Ht 190.5 cm; Wt 96.6 kg
[~2018-07-22 22:48] MED LIST changes: +AMOX1TAB61 PO; +DOXY100T10 PO
--- NOTE | 2018-07-22 22:48 | NUR ---
pt medicated per mar.
[2018-07-22] MEDS ORDERED: ALBUTEROL/IPRATROPIUM 2.5MG/0.5MG, 3 ML ONE (23:05)
--- NOTE | 2018-07-22 23:20 | NUR ---
Pt in gown in [facility]. awaiting erp. pt educated on er process and poc and verbalizes understanding. call light is within reach.
[2018-07-22] MEDS ORDERED: ASPIRIN 81 MG TABLET CHEW ONE (23:27)
[2018-07-22] MEDS ORDERED: ASPIRIN 81 MG TABLET CHEW PO ONE (23:30)
[2018-07-22 23:37] LABS: BASOPHILS # (AUTO) 0.04 x10^3/uL (0-0.1); BASOPHILS % (AUTO) 1 % (0-1); EOSINOPHILS # (AUTO) 0.08 x10^3/uL (0-0.4); EOSINOPHILS % (AUTO) 2 % (1-7); LYMPHOCYTES # (AUTO) 0.44 x10^3/uL (1-3.4); LYMPHOCYTES % (AUTO) 9 % (22-44); MD NO; MEAN CORPUSCULAR HEMOGLOBIN 30.2 pg (27.5-34.5); MEAN CORPUSCULAR HGB CONC 31.9 g/dL (33.2-36.2); MEAN CORPUSCULAR VOLUME 94.6 fL (81-97); MEAN PLATELET VOLUME 7.9 fL (7.4-10.4); MONOCYTES # (AUTO) 0.41 x10^3/uL (0.2-0.8); MONOCYTES % (AUTO) 8 % (2-9); NEUTROPHILS # (AUTO) 4.05 x10^3/uL (1.8-6.8); NEUTROPHILS % (AUTO) 81 % (42-75); PLATELET COUNT 232 x10^3/uL (130-400); RED BLOOD COUNT 3.35 x10^6/uL (4.38-5.82); RED CELL DISTRIBUTION WIDTH 16.7 % (9.4-14.8)
[2018-07-22 23:45] LABS: INTERNATIONAL NORMALIZED RATIO 1.78 (0.93-1.1); PROTHROMBIN TIME 18.5 Seconds (9.6-11.5)
[2018-07-22 23:51] LABS: ALBUMIN 3.3 g/dL (3.4-5.0); ANION GAP 7 mmol/L (5-15); CALCIUM 8.6 mg/dL (8.5-10.1); CHLORIDE 103 mmol/L (98-107)
[2018-07-22 23:57] LABS: ALANINE AMINOTRANSFERASE 21 U/L (12-78); ALKALINE PHOSPHATASE 96 U/L (45-117); BILIRUBIN,TOTAL 0.5 mg/dL (0.2-1.0); CREATININE 1.11 mg/dL (0.7-1.3); TOTAL PROTEIN 6.8 g/dL (6.4-8.2); TROPONIN I 0.072 ng/mL (0.000-0.045)
--- NOTE | 2018-07-23 00:24 | NUR ---
vss and updated in emr.
--- NOTE | 2018-07-23 01:08 | NUR ---
SBAR report received from [facility]. Pt with IV established and aware of plan to admit to hospital.
--- NOTE | 2018-07-23 01:09 | NUR ---
report of pt to javi carey. all questions answered.
--- NOTE | 2018-07-23 01:23 | NUR ---
Telephone SBAR report given to KHADIJAH Cintron. Pt made aware of new room assignment.
[2018-07-23 01:46] VITALS: BP 96/61
[2018-07-23 02:00] VITALS: BP 96/63
[2018-07-23] MEDS ORDERED: morphine SULFATE 10 MG/ML, 1ML IVPush PRN ×2 (02:30→03:30)
[2018-07-23] MEDS ORDERED: LABETALOL 5MG/ML, 20ML IVPush PRN (03:30)
[2018-07-23] MEDS ORDERED: ALBUTEROL/IPRATROPIUM 2.5MG/0.5MG, 3 ML NPPB PRN (03:30)
[2018-07-23] MEDS ORDERED: PROMETHAZINE 25 MG/ML, 1ML IM PRN (03:30)
[2018-07-23] MEDS ORDERED: ONDANSETRON 2MG/ML, 2ML IVPush PRN (03:30)
[2018-07-23] MEDS ORDERED: DOCUSATE 100 MG CAPSULE PO PRN (03:30)
[2018-07-23] MEDS ORDERED: hydrALAzine 20 MG/ML, 1ML IVPush PRN (03:30)
[2018-07-23] MEDS ORDERED: BISACODYL 10 MG SUPP PR PRN (03:30)
[2018-07-23] MEDS ORDERED: POLYETHYLENE GLYCOL 17 GM PACKET PO PRN (03:30)
[2018-07-23] MEDS ORDERED: ONDANSETRON ODT 4 MG PO PRN (03:30)
[2018-07-23] MEDS ORDERED: ALBUTEROL SULFATE 2.5 MG/3 ML NPPB SCH (03:30)
[2018-07-23] MEDS: CEFTRIAXONE PMX 2GM/50ML 50 ML IV SCH (03:46)
[2018-07-23] MEDS: GUAIFENESIN 200 MG TABLET PO SCH ×2 (03:46→16:20)
[2018-07-23] MEDS: AZITHROMYCIN 500 MG in SODIUM CHLORIDE 0.9% 250 ML IV SCH (04:21)
[2018-07-23 04:31] LABS: FREE T4 (FREE THYROXINE) 0.85 ng/dL (0.76-1.46); TROPONIN I 0.077 ng/mL (0.000-0.045)
[2018-07-23 04:48] VITALS: BP 96/63
[2018-07-23 05:05] LABS: HEMOGLOBIN A1C 5.4 % (4.2-6.3)
[2018-07-23 06:35] VITALS: BP 123/64
[2018-07-23] MEDS ORDERED: IPRATROPIUM 0.5 MG/2.5 ML INHA NPPB SCH (07:00)
[2018-07-23] MEDS: BUDESONIDE 0.5 MG/2 ML INHA NPPB SCH ×2 (07:25→19:46)
[2018-07-23] MEDS: ALBUTEROL/IPRATROPIUM 2.5MG/0.5MG, 3 ML NPPB SCH ×3 (07:25→19:46)
[2018-07-23] MEDS: HYDROcodone/APAP 5/325 TABLET PO PRN ×3 (07:31→20:10)
[2018-07-23] MEDS: ASCORBIC ACID 500 MG TABLET PO SCH ×2 (08:28→20:10)
[2018-07-23] MEDS: CHOLECALCIFEROL 1,000 UNIT TABLET PO SCH ×2 (08:29→20:10)
[2018-07-23] MEDS: SERTRALINE 50MG TABLET PO SCH (08:29)
[2018-07-23] MEDS: FERROUS SULFATE 325 MG TABLET PO SCH (08:30)
[2018-07-23] MEDS ORDERED: MOMETASONE INH SCH (09:00)
[2018-07-23] MEDS ORDERED: [UNRECOGNIZED DRUG - OTHER] INH SCH (09:00)
[2018-07-23] MEDS ORDERED: FORMOTEROL INH SCH (09:00)
[2018-07-23] MEDS ORDERED: OMNIPAQUE 350 MG/ML, 100ML BOTTLE ONE (09:05)
[2018-07-23 12:27] LABS: TROPONIN I 0.066 ng/mL (0.000-0.045)
[2018-07-23 13:40] VITALS: BP 116/74
[2018-07-23] MEDS: RIVAROXABAN 20 MG TABLET PO SCH (16:41)
[2018-07-23 18:34] VITALS: BP 113/69
[2018-07-23] MEDS: ATORVASTATIN 10 MG TABLET PO SCH (20:10)
[2018-07-24] MEDS: ALBUTEROL/IPRATROPIUM 2.5MG/0.5MG, 3 ML NPPB SCH ×4 (03:00→21:20)
[2018-07-24] MEDS: CEFTRIAXONE PMX 2GM/50ML 50 ML IV SCH (03:23)
[2018-07-24] MEDS: GUAIFENESIN 200 MG TABLET PO SCH ×2 (03:23→17:12)
[2018-07-24 03:24] VITALS: BP 128/84
[2018-07-24] MEDS: AZITHROMYCIN 500 MG in SODIUM CHLORIDE 0.9% 250 ML IV SCH (04:01)
[2018-07-24 05:30] LABS: BASOPHILS # (AUTO) 0.03 x10^3/uL (0-0.1); BASOPHILS % (AUTO) 1 % (0-1); EOSINOPHILS # (AUTO) 0.06 x10^3/uL (0-0.4); EOSINOPHILS % (AUTO) 1 % (1-7); LYMPHOCYTES # (AUTO) 0.77 x10^3/uL (1-3.4); LYMPHOCYTES % (AUTO) 13 % (22-44); MD NO; MEAN CORPUSCULAR HEMOGLOBIN 31.1 pg (27.5-34.5); MEAN CORPUSCULAR HGB CONC 32.9 g/dL (33.2-36.2); MEAN CORPUSCULAR VOLUME 94.4 fL (81-97); MEAN PLATELET VOLUME 8.3 fL (7.4-10.4); MONOCYTES # (AUTO) 0.52 x10^3/uL (0.2-0.8); MONOCYTES % (AUTO) 9 % (2-9); NEUTROPHILS # (AUTO) 4.41 x10^3/uL (1.8-6.8); NEUTROPHILS % (AUTO) 76 % (42-75); PLATELET COUNT 241 x10^3/uL (130-400); RED BLOOD COUNT 3.36 x10^6/uL (4.38-5.82); RED CELL DISTRIBUTION WIDTH 16.8 % (9.4-14.8)
[2018-07-24 05:56] LABS: CALCIUM 8.7 mg/dL (8.5-10.1); CHLORIDE 103 mmol/L (98-107)
[2018-07-24 06:01] LABS: ALANINE AMINOTRANSFERASE 17 U/L (12-78); ALBUMIN 3.3 g/dL (3.4-5.0); ALKALINE PHOSPHATASE 94 U/L (45-117); ANION GAP 8 mmol/L (5-15); BILIRUBIN,TOTAL 0.7 mg/dL (0.2-1.0); CHOL/HDL RATIO 2.5; CHOLESTEROL, TOTAL 99 mg/dL (140-239); CREATININE 1.16 mg/dL (0.7-1.3); HDL CHOL % 40 % (26-37); HDL CHOLESTEROL (DIRECT) 40 mg/dL (40-60); LDL CHOLESTEROL,CALCULATED 45 mg/dL (54-169); LDL/HDL RATIO 1.1 (0.5-3.0); TOTAL PROTEIN 6.7 g/dL (6.4-8.2); TRIGLYCERIDES 70 mg/dL (50-200); VLDL CHOLESTEROL 14 mg/dL (0-25)
[2018-07-24 06:34] VITALS: BP 99/71
[2018-07-24] MEDS: ASCORBIC ACID 500 MG TABLET PO SCH ×2 (08:34→20:20)
[2018-07-24] MEDS: SERTRALINE 50MG TABLET PO SCH (08:34)
[2018-07-24] MEDS: FERROUS SULFATE 325 MG TABLET PO SCH (08:34)
[2018-07-24] MEDS: CHOLECALCIFEROL 1,000 UNIT TABLET PO SCH ×2 (08:34→20:20)
[2018-07-24] MEDS: HYDROcodone/APAP 5/325 TABLET PO PRN ×2 (09:07→17:12)
[2018-07-24] MEDS: BUDESONIDE 0.5 MG/2 ML INHA NPPB SCH ×2 (09:50→21:21)
[2018-07-24 13:10] VITALS: BP 111/70
[2018-07-24] MEDS ORDERED: LIDOCAINE-MPF 1%, 5ML ONE (14:06)
[2018-07-24] MEDS ORDERED: OMNIPAQUE 350 MG/ML, 100ML BOTTLE ONE (14:36)
[2018-07-24 19:25] VITALS: BP 110/75
[2018-07-24] MEDS: ATORVASTATIN 10 MG TABLET PO SCH (20:20)
[2018-07-25 00:15] VITALS: BP 103/67
[2018-07-25] MEDS: CEFTRIAXONE PMX 2GM/50ML 50 ML IV SCH (03:19)
[2018-07-25] MEDS: GUAIFENESIN 200 MG TABLET PO SCH ×2 (03:19→15:17)
[2018-07-25] MEDS: AZITHROMYCIN 500 MG in SODIUM CHLORIDE 0.9% 250 ML IV SCH (04:12)
[2018-07-25] MEDS: ALBUTEROL/IPRATROPIUM 2.5MG/0.5MG, 3 ML NPPB SCH ×4 (04:18→19:50)
[2018-07-25 06:38] VITALS: BP 96/64
[2018-07-25] MEDS: CHOLECALCIFEROL 1,000 UNIT TABLET PO SCH ×2 (08:56→21:08)
[2018-07-25] MEDS: SERTRALINE 50MG TABLET PO SCH (08:56)
[2018-07-25] MEDS: ASCORBIC ACID 500 MG TABLET PO SCH ×2 (08:57→21:08)
[2018-07-25] MEDS: BUDESONIDE 0.5 MG/2 ML INHA NPPB SCH ×2 (09:00→19:50)
[2018-07-25 13:25] VITALS: BP 97/68
[2018-07-25] MEDS: ACETAMINOPHEN 325 MG TABLET PO PRN ×2 (15:21→21:11)
[2018-07-25 20:06] VITALS: BP 105/68
[2018-07-25] MEDS: ATORVASTATIN 10 MG TABLET PO SCH (21:08)
[2018-07-26] MEDS: ALBUTEROL/IPRATROPIUM 2.5MG/0.5MG, 3 ML NPPB SCH ×4 (03:00→20:19)
[2018-07-26] MEDS: CEFTRIAXONE PMX 2GM/50ML 50 ML IV SCH (03:22)
[2018-07-26] MEDS: GUAIFENESIN 200 MG TABLET PO SCH ×2 (03:24→16:27)
[2018-07-26 03:30] VITALS: BP 108/73
[2018-07-26] MEDS: AZITHROMYCIN 500 MG in SODIUM CHLORIDE 0.9% 250 ML IV SCH (04:24)
[2018-07-26 06:38] VITALS: BP 99/68
[2018-07-26] MEDS: CHOLECALCIFEROL 1,000 UNIT TABLET PO SCH ×2 (08:58→22:20)
[2018-07-26] MEDS: ASCORBIC ACID 500 MG TABLET PO SCH ×2 (08:58→22:20)
[2018-07-26] MEDS: SERTRALINE 50MG TABLET PO SCH (08:58)
[2018-07-26] MEDS: FERROUS SULFATE 325 MG TABLET PO SCH (08:58)
[2018-07-26] MEDS: BUDESONIDE 0.5 MG/2 ML INHA NPPB SCH ×2 (09:45→22:00)
[2018-07-26] MEDS: ACETAMINOPHEN 325 MG TABLET PO PRN ×2 (12:14→22:22)
[2018-07-26 13:14] VITALS: BP 102/65
[2018-07-26 19:24] VITALS: BP 113/74
[2018-07-26] MEDS: ATORVASTATIN 10 MG TABLET PO SCH (22:20)
[2018-07-27 00:36] VITALS: BP 108/68
[2018-07-27] MEDS: ALBUTEROL/IPRATROPIUM 2.5MG/0.5MG, 3 ML NPPB SCH ×3 (03:00→16:07)
[2018-07-27] MEDS: CEFTRIAXONE PMX 2GM/50ML 50 ML IV SCH (03:41)
[2018-07-27] MEDS: AZITHROMYCIN 500 MG in SODIUM CHLORIDE 0.9% 250 ML IV SCH (04:25)
[2018-07-27] MEDS: GUAIFENESIN 200 MG TABLET PO SCH ×2 (04:26→16:57)
[2018-07-27 07:34] VITALS: BP 120/72
[2018-07-27] MEDS: ASCORBIC ACID 500 MG TABLET PO SCH (07:43)
[2018-07-27] MEDS: SERTRALINE 50MG TABLET PO SCH (07:43)
[2018-07-27] MEDS: FERROUS SULFATE 325 MG TABLET PO SCH (07:43)
[2018-07-27] MEDS: CHOLECALCIFEROL 1,000 UNIT TABLET PO SCH (07:43)
[2018-07-27] MEDS: BUDESONIDE 0.5 MG/2 ML INHA NPPB SCH (08:41)
[2018-07-27 09:56] LABS: BASOPHILS # (AUTO) 0.02 x10^3/uL (0-0.1); BASOPHILS % (AUTO) 1 % (0-1); EOSINOPHILS # (AUTO) 0.05 x10^3/uL (0-0.4); EOSINOPHILS % (AUTO) 1 % (1-7); LYMPHOCYTES # (AUTO) 0.51 x10^3/uL (1-3.4); LYMPHOCYTES % (AUTO) 11 % (22-44); MD NO; MEAN CORPUSCULAR HGB CONC 31.9 g/dL (33.2-36.2); MEAN PLATELET VOLUME 7.7 fL (7.4-10.4); MONOCYTES % (AUTO) 9 % (2-9); NEUTROPHILS # (AUTO) 3.59 x10^3/uL (1.8-6.8); NEUTROPHILS % (AUTO) 78 % (42-75); PLATELET COUNT 251 x10^3/uL (130-400); RED CELL DISTRIBUTION WIDTH 16.6 % (9.4-14.8)
[2018-07-27 09:57] LABS: INTERNATIONAL NORMALIZED RATIO 1.21 (0.93-1.1); PROTHROMBIN TIME 12.7 Seconds (9.6-11.5)
[2018-07-27] MEDS ORDERED: LIDOCAINE-MPF 1%, 5ML ONE ×2 (12:14→13:22)
[2018-07-27] MEDS ORDERED: MIDAZOLAM 1 MG/ML, 5ML ONE (13:05)
[2018-07-27] MEDS ORDERED: FENTANYL PF 100 MCG/2ML ONE (13:05)
[2018-07-27] MEDS ORDERED: NALOXONE 1 MG/ML, 2ML ONE (13:05)
[2018-07-27] MEDS ORDERED: FLUMAZENIL 0.1 MG/1 ML, 5ML ONE (13:05)
[2018-07-27] MEDS ORDERED: CEFD300C37 PO (18:09)
[2018-07-27] MEDS ORDERED: AZIT500T PO (18:09)
== END 2018-07-27 18:53 | disposition home health service (06) | DRG 177 ==
LOC: ED 23:13 → EDIP 07-23 00:56 → 5SO 07-23 01:41
PROVIDERS: ADMIT Internal Medicine; ATTEND Internal Medicine
PROC: 0W993ZZ Drainage of Right Pleural Cavity, Percutaneous Approach (ICD-10-PCS; principal; 2018-07-24)
PROC: 0BBD3ZX Excision of Right Middle Lung Lobe, Percutaneous Approach, Diagnostic (ICD-10-PCS; 2018-07-27)
DX: J15.6 Pneumonia due to other Gram-negative bacteria (principal); J96.21 Acute and chronic respiratory failure with hypoxia; I50.21 Acute systolic (congestive) heart failure; J44.0 Chronic obstructive pulmonary disease with (acute) lower respiratory infection; I11.0 Hypertensive heart disease with heart failure; I48.2 Chronic atrial fibrillation; E03.9 Hypothyroidism, unspecified; E78.5 Hyperlipidemia, unspecified; I25.10 Atherosclerotic heart disease of native coronary artery without angina pectoris; I35.0 Nonrheumatic aortic (valve) stenosis; I27.20 Pulmonary hypertension, unspecified; I95.9 Hypotension, unspecified; D64.9 Anemia, unspecified; N28.1 Cyst of kidney, acquired; I65.22 Occlusion and stenosis of left carotid artery; R59.0 Localized enlarged lymph nodes; I25.2 Old myocardial infarction; Z95.1 Presence of aortocoronary bypass graft; Z86.711 Personal history of pulmonary embolism; Z90.49 Acquired absence of other specified parts of digestive tract; Z99.81 Dependence on supplemental oxygen; Z79.01 Long term (current) use of anticoagulants; Z79.899 Other long term (current) drug therapy
CPT/HCPCS: 32405; 32555; 36415; 71045; 71260; 74177; 77012; 80053; 80061; 82042; 82945; 83036; 83615; 83690; 83735; 83880; 83986; 84157; 84439; 84443; 84484; 85025; 85610; 87040; 87070; 87077; 87186; 87205; 88112; 88305; 88312; 88341; 88342; 89051; 93005; 93880; 93975; 94640; 99156; 99157; 99291; C2613; G0378; J0456; J0696; J2250; J3010; J7620; J7626; Q9967; J2310; J7050

== ENCOUNTER 2018-08-04 16:52 | Inpatient (IN) | payer MEDICARE ==
[~2018-08-04] VITALS: Ht 190.5 cm; Wt 91.4 kg
[2018-08-04] MEDS ORDERED: ALBUTEROL/IPRATROPIUM 2.5MG/0.5MG, 3 ML NPPB ONE (17:00)
[2018-08-04] MEDS ORDERED: SODIUM CHLORIDE FLUSH 10ML SYR IVF ONE ×2 (17:00→18:00)
[2018-08-04] MEDS ORDERED: ALBUTEROL/IPRATROPIUM 2.5MG/0.5MG, 3 ML ONE ×2 (17:22→23:24)
--- NOTE | 2018-08-04 17:34 | NUR ---
DR EVANGELISTA AND RT AT BEDSIDE
[2018-08-04 17:41] LABS: ALANINE AMINOTRANSFERASE 19 U/L (12-78); ALBUMIN 3.6 g/dL (3.4-5.0); ANION GAP 5 mmol/L (5-15); CALCIUM 8.7 mg/dL (8.5-10.1); CHLORIDE 104 mmol/L (98-107); CREATININE 1.02 mg/dL (0.7-1.3)
[2018-08-04 17:43] LABS: INTERNATIONAL NORMALIZED RATIO 1.4 (0.93-1.1); PROTHROMBIN TIME 14.6 Seconds (9.6-11.5)
[2018-08-04 17:45] LABS: ALKALINE PHOSPHATASE 90 U/L (45-117); BILIRUBIN,TOTAL 0.6 mg/dL (0.2-1.0); TROPONIN I 0.067 ng/mL (0.000-0.045)
[2018-08-04 17:57] LABS: BASOPHILS # (AUTO) 0.03 x10^3/uL (0-0.1); BASOPHILS % (AUTO) 0 % (0-1); EOSINOPHILS # (AUTO) 0.06 x10^3/uL (0-0.4); EOSINOPHILS % (AUTO) 1 % (1-7); LYMPHOCYTES # (AUTO) 0.43 x10^3/uL (1-3.4); LYMPHOCYTES % (AUTO) 6 % (22-44); MD NO; MEAN CORPUSCULAR HEMOGLOBIN 30.3 pg (27.5-34.5); MEAN CORPUSCULAR HGB CONC 32.6 g/dL (33.2-36.2); MEAN CORPUSCULAR VOLUME 92.9 fL (81-97); MEAN PLATELET VOLUME 8.4 fL (7.4-10.4); MONOCYTES # (AUTO) 0.55 x10^3/uL (0.2-0.8); MONOCYTES % (AUTO) 8 % (2-9); NEUTROPHILS # (AUTO) 6.26 x10^3/uL (1.8-6.8); NEUTROPHILS % (AUTO) 86 % (42-75); PLATELET COUNT 230 x10^3/uL (130-400); RED BLOOD COUNT 3.38 x10^6/uL (4.38-5.82); RED CELL DISTRIBUTION WIDTH 16.8 % (9.4-14.8)
--- NOTE | 2018-08-04 18:30 | NUR ---
PT PLACED ON OXYMASK FOR COMFORT
[2018-08-04] MEDS ORDERED: SODIUM CHLORIDE FLUSH 10ML SYR IVF PRN (20:00)
--- NOTE | 2018-08-04 20:47 | NUR ---
TASK RN: REPORT TO KHADIJAH DE JESUS
[2018-08-04] MEDS ORDERED: hydrALAzine 20 MG/ML, 1ML IVPush PRN (21:00)
[2018-08-04] MEDS ORDERED: ACETAMINOPHEN 325 MG TABLET PO PRN (21:00)
[2018-08-04] MEDS ORDERED: LIDODERM 5% PATCH TD PRN (21:00)
[2018-08-04] MEDS: Mometasone/Formoterol (Dulera 200 Mcg/5 Mcg Inhaler) INH SCH (21:00)
[2018-08-04] MEDS ORDERED: LEVALBUTEROL HCL INH PRN (21:00)
[2018-08-04] MEDS ORDERED: DOCUSATE 100 MG CAPSULE PO PRN (21:00)
[2018-08-04] MEDS ORDERED: ONDANSETRON ODT 4 MG PO PRN (21:00)
[2018-08-04 21:11] VITALS: BP 111/71
[2018-08-04] MEDS: ATORVASTATIN 10 MG TABLET PO SCH (21:30)
[2018-08-04] MEDS: FUROSEMIDE 20 MG/2 ML IV SCH (21:30)
[2018-08-04] MEDS: ASCORBIC ACID 500 MG TABLET PO SCH (21:30)
[2018-08-04] MEDS: SPIRONOLACTONE 25 MG TABLET PO SCH (21:30)
[2018-08-04] MEDS: CHOLECALCIFEROL 1,000 UNIT TABLET PO SCH (21:30)
[2018-08-05 00:11] LABS: TROPONIN I 0.067 ng/mL (0.000-0.045)
[2018-08-05 01:50] VITALS: BP 97/61
[2018-08-05 06:08] LABS: ANION GAP 8 mmol/L (5-15); CALCIUM 8.6 mg/dL (8.5-10.1); CHLORIDE 103 mmol/L (98-107)
[2018-08-05 06:13] LABS: TROPONIN I 0.049 ng/mL (0.000-0.045)
[2018-08-05 06:17] LABS: BASOPHILS % (AUTO) 0 % (0-1); EOSINOPHILS # (AUTO) 0.01 x10^3/uL (0-0.4); EOSINOPHILS % (AUTO) 0 % (1-7); LYMPHOCYTES # (AUTO) 0.23 x10^3/uL (1-3.4); LYMPHOCYTES % (AUTO) 5 % (22-44); MD NO; MEAN CORPUSCULAR HEMOGLOBIN 30.4 pg (27.5-34.5); MEAN CORPUSCULAR HGB CONC 33.1 g/dL (33.2-36.2); MEAN PLATELET VOLUME 8.4 fL (7.4-10.4); MONOCYTES # (AUTO) 0.06 x10^3/uL (0.2-0.8); MONOCYTES % (AUTO) 1 % (2-9); NEUTROPHILS # (AUTO) 4.46 x10^3/uL (1.8-6.8); NEUTROPHILS % (AUTO) 94 % (42-75); PLATELET COUNT 188 x10^3/uL (130-400); RED CELL DISTRIBUTION WIDTH 16.5 % (9.4-14.8)
[2018-08-05] MEDS: ALBUTEROL/IPRATROPIUM 2.5MG/0.5MG, 3 ML NPPB SCH ×4 (06:51→18:44)
[2018-08-05] MEDS: BUDESONIDE 0.5 MG/2 ML INHA NPPB SCH ×2 (06:51→18:44)
[2018-08-05 07:39] VITALS: BP 96/62
[2018-08-05] MEDS ORDERED: FUROSEMIDE 20 MG TABLET PO SCH (09:00)
[2018-08-05] MEDS: Mometasone/Formoterol (Dulera 200 Mcg/5 Mcg Inhaler) INH SCH ×2 (09:00→20:49)
[2018-08-05] MEDS ORDERED: RIVAROXABAN 20 MG TABLET PO SCH (09:00)
[2018-08-05] MEDS: Tiotropium Bromide** (Spiriva**) 18 MCG INH SCH (09:00)
[2018-08-05] MEDS ORDERED: SERTRALINE 100MG TABLET ONE (09:21)
[2018-08-05] MEDS: FUROSEMIDE 20 MG/2 ML IV SCH ×2 (09:33→17:47)
[2018-08-05] MEDS: SPIRONOLACTONE 25 MG TABLET PO SCH ×2 (09:34→20:50)
[2018-08-05] MEDS: ASCORBIC ACID 500 MG TABLET PO SCH ×2 (09:37→20:51)
[2018-08-05] MEDS: CHOLECALCIFEROL 1,000 UNIT TABLET PO SCH ×2 (09:38→20:51)
[2018-08-05 09:40] VITALS: BP 105/66
[2018-08-05] MEDS: SERTRALINE 50MG TABLET PO SCH (09:41)
[2018-08-05 13:25] VITALS: BP 92/52
[2018-08-05 17:45] VITALS: BP 103/69
[2018-08-05] MEDS: GUAIFENESIN 200 MG TABLET PO SCH ×2 (17:47→20:51)
[2018-08-05] MEDS: RIVAROXABAN 20 MG TABLET PO SCH (17:48)
[2018-08-05] MEDS: ATORVASTATIN 10 MG TABLET PO SCH (20:50)
[2018-08-05 21:06] VITALS: BP 102/66
[2018-08-06 00:22] VITALS: BP 110/58
[2018-08-06 05:28] LABS: BASOPHILS # (AUTO) 0.03 x10^3/uL (0-0.1); BASOPHILS % (AUTO) 0 % (0-1); EOSINOPHILS # (AUTO) 0.07 x10^3/uL (0-0.4); EOSINOPHILS % (AUTO) 1 % (1-7); LYMPHOCYTES # (AUTO) 0.58 x10^3/uL (1-3.4); LYMPHOCYTES % (AUTO) 8 % (22-44); MD NO; MEAN CORPUSCULAR HEMOGLOBIN 29.7 pg (27.5-34.5); MEAN CORPUSCULAR HGB CONC 32.3 g/dL (33.2-36.2); MEAN CORPUSCULAR VOLUME 91.9 fL (81-97); MEAN PLATELET VOLUME 8.3 fL (7.4-10.4); MONOCYTES # (AUTO) 0.59 x10^3/uL (0.2-0.8); MONOCYTES % (AUTO) 9 % (2-9); NEUTROPHILS # (AUTO) 5.68 x10^3/uL (1.8-6.8); NEUTROPHILS % (AUTO) 82 % (42-75); PLATELET COUNT 196 x10^3/uL (130-400); RED BLOOD COUNT 3.28 x10^6/uL (4.38-5.82); RED CELL DISTRIBUTION WIDTH 17.2 % (9.4-14.8)
[2018-08-06 05:35] LABS: CHLORIDE 102 mmol/L (98-107)
[2018-08-06 05:39] LABS: ANION GAP 7 mmol/L (5-15); CALCIUM 8.7 mg/dL (8.5-10.1); CREATININE 1.22 mg/dL (0.7-1.3)
[2018-08-06] MEDS: BUDESONIDE 0.5 MG/2 ML INHA NPPB SCH ×2 (06:00→21:00)
[2018-08-06] MEDS: ALBUTEROL/IPRATROPIUM 2.5MG/0.5MG, 3 ML NPPB SCH ×6 (06:00→20:00)
[2018-08-06] MEDS: GUAIFENESIN 200 MG TABLET PO SCH ×4 (06:19→20:21)
[2018-08-06 07:30] VITALS: BP 101/65
[2018-08-06] MEDS ORDERED: SERTRALINE 100MG TABLET ONE (08:54)
[2018-08-06] MEDS: SERTRALINE 50MG TABLET PO SCH (09:00)
[2018-08-06] MEDS: Mometasone/Formoterol (Dulera 200 Mcg/5 Mcg Inhaler) INH SCH ×2 (09:00→20:22)
[2018-08-06] MEDS: Tiotropium Bromide** (Spiriva**) 18 MCG INH SCH (09:00)
[2018-08-06] MEDS: CHOLECALCIFEROL 1,000 UNIT TABLET PO SCH ×2 (09:35→20:21)
[2018-08-06] MEDS: FUROSEMIDE 20 MG/2 ML IV SCH (09:35)
[2018-08-06] MEDS: ASCORBIC ACID 500 MG TABLET PO SCH ×2 (09:36→20:21)
[2018-08-06] MEDS: SPIRONOLACTONE 25 MG TABLET PO SCH ×2 (09:36→20:20)
[2018-08-06] MEDS: FERROUS SULFATE 325 MG TABLET PO SCH (09:36)
[2018-08-06 13:50] VITALS: BP 111/64
[2018-08-06] MEDS: RIVAROXABAN 20 MG TABLET PO SCH (17:00)
[2018-08-06] MEDS: PIPERACILLIN/TAZO/PMX 3.375GM 50 ML IV SCH ×2 (18:16→23:08)
[2018-08-06 18:55] VITALS: BP 110/71
[2018-08-06] MEDS: ATORVASTATIN 10 MG TABLET PO SCH (20:21)
[2018-08-06] MEDS: TEMAZEPAM 15 MG CAPSULE PO PRN (23:08)
[2018-08-07 00:56] VITALS: BP 89/47
[2018-08-07 03:21] VITALS: BP 89/53
[2018-08-07 03:22] VITALS: BP 91/56
[2018-08-07 05:34] LABS: CHLORIDE 100 mmol/L (98-107)
[2018-08-07 05:38] LABS: ANION GAP 4 mmol/L (5-15); CALCIUM 8.7 mg/dL (8.5-10.1); CREATININE 1.17 mg/dL (0.7-1.3)
[2018-08-07] MEDS: PIPERACILLIN/TAZO/PMX 3.375GM 50 ML IV SCH ×3 (05:38→21:13)
[2018-08-07] MEDS: GUAIFENESIN 200 MG TABLET PO SCH ×4 (05:38→21:18)
[2018-08-07 06:37] VITALS: BP 97/61
[2018-08-07] MEDS: ALBUTEROL/IPRATROPIUM 2.5MG/0.5MG, 3 ML NPPB SCH ×4 (07:04→18:42)
[2018-08-07] MEDS: BUDESONIDE 0.5 MG/2 ML INHA NPPB SCH (07:04)
[2018-08-07] MEDS: SPIRONOLACTONE 25 MG TABLET PO SCH ×2 (08:04→21:17)
[2018-08-07] MEDS: SERTRALINE 50MG TABLET PO SCH (08:04)
[2018-08-07] MEDS: Mometasone/Formoterol (Dulera 200 Mcg/5 Mcg Inhaler) INH SCH ×2 (09:00→21:00)
[2018-08-07] MEDS: Tiotropium Bromide** (Spiriva**) 18 MCG INH SCH (09:00)
[2018-08-07] MEDS ORDERED: FUROSEMIDE 20 MG TABLET PO SCH (09:00)
[2018-08-07] MEDS ORDERED: LIDOCAINE-MPF 1%, 5ML ONE (10:09)
[2018-08-07] MEDS ORDERED: VERAPAMIL 2.5 MG/ML, 2ML ONE ×2 (10:09→10:17)
[2018-08-07] MEDS ORDERED: LIDOCAINE-MPF 2%, 2ML ONE (10:17)
[2018-08-07] MEDS ORDERED: TICAGRELOR 90 MG TABLET ONE (10:17)
[2018-08-07] MEDS ORDERED: HEPARIN 1,000 UNITS/ML, 10ML ONE (10:17)
[2018-08-07] MEDS ORDERED: FENTANYL PF 100 MCG/2ML ONE (10:17)
[2018-08-07] MEDS ORDERED: BIVALIRUDIN 250 MG ONE (10:17)
[2018-08-07] MEDS ORDERED: MIDAZOLAM 1 MG/ML, 5ML ONE (10:17)
[2018-08-07 12:17] VITALS: BP 113/77
[2018-08-07] MEDS: FERROUS SULFATE 325 MG TABLET PO SCH (16:35)
[2018-08-07] MEDS: RIVAROXABAN 20 MG TABLET PO SCH (16:35)
[2018-08-07] MEDS: CHOLECALCIFEROL 1,000 UNIT TABLET PO SCH ×2 (16:36→21:18)
[2018-08-07] MEDS: ASCORBIC ACID 500 MG TABLET PO SCH ×2 (16:36→21:17)
[2018-08-07 19:39] VITALS: BP 104/72
[2018-08-07] MEDS: ATORVASTATIN 10 MG TABLET PO SCH (21:17)
[2018-08-07] MEDS: TEMAZEPAM 15 MG CAPSULE PO PRN (22:22)
[2018-08-08] MEDS: PIPERACILLIN/TAZO/PMX 3.375GM 50 ML IV SCH ×4 (02:05→21:38)
[2018-08-08 03:18] VITALS: BP 100/62
[2018-08-08] MEDS: BUDESONIDE 0.5 MG/2 ML INHA NPPB SCH ×3 (03:35→21:00)
[2018-08-08 05:13] LABS: MEAN CORPUSCULAR HEMOGLOBIN 29.8 pg (27.5-34.5); MEAN CORPUSCULAR HGB CONC 32.5 g/dL (33.2-36.2); MEAN CORPUSCULAR VOLUME 91.5 fL (81-97); MEAN PLATELET VOLUME 8.4 fL (7.4-10.4); PLATELET COUNT 194 x10^3/uL (130-400); RED BLOOD COUNT 3.33 x10^6/uL (4.38-5.82); RED CELL DISTRIBUTION WIDTH 16.7 % (9.4-14.8)
[2018-08-08 05:21] LABS: ANION GAP 7 mmol/L (5-15); CALCIUM 8.6 mg/dL (8.5-10.1); CHLORIDE 101 mmol/L (98-107)
[2018-08-08 05:22] LABS: CREATININE 1.27 mg/dL (0.7-1.3)
[2018-08-08] MEDS: GUAIFENESIN 200 MG TABLET PO SCH ×4 (06:23→21:22)
[2018-08-08 06:45] LABS: MD MORPH REVIEW ONLY
[2018-08-08 06:49] LABS: BASOPHILS % (AUTO) 0 % (0-1); EOSINOPHILS # (AUTO) 0.15 x10^3/uL (0-0.4); EOSINOPHILS % (AUTO) 2 % (1-7); LYMPHOCYTES # (AUTO) 0.59 x10^3/uL (1-3.4); LYMPHOCYTES % (AUTO) 7 % (22-44); MONOCYTES # (AUTO) 0.63 x10^3/uL (0.2-0.8); MONOCYTES % (AUTO) 8 % (2-9); NEUTROPHILS % (AUTO) 84 % (42-75)
[2018-08-08 06:51] LABS: HYPOCHROMIA 1+; OVALOCYTES 2+
[2018-08-08 06:54] LABS: SPHEROCYTES 1+
[2018-08-08 06:55] LABS: SCHISTOCYTES 1+
[2018-08-08 06:57] LABS: <PLATELET ESTIMATE> ADEQUATE; <PLT MORPHOLOGY> NORMAL PLT MORPH
[2018-08-08 08:00] VITALS: BP 93/57
[2018-08-08] MEDS: ALBUTEROL/IPRATROPIUM 2.5MG/0.5MG, 3 ML NPPB SCH ×4 (08:13→20:00)
[2018-08-08] MEDS: Tiotropium Bromide** (Spiriva**) 18 MCG INH SCH (09:00)
[2018-08-08] MEDS: Mometasone/Formoterol (Dulera 200 Mcg/5 Mcg Inhaler) INH SCH ×2 (09:00→21:00)
[2018-08-08] MEDS: SPIRONOLACTONE 25 MG TABLET PO SCH ×2 (10:18→21:22)
[2018-08-08] MEDS: FERROUS SULFATE 325 MG TABLET PO SCH (10:19)
[2018-08-08] MEDS: ASCORBIC ACID 500 MG TABLET PO SCH ×2 (10:19→21:22)
[2018-08-08] MEDS: CHOLECALCIFEROL 1,000 UNIT TABLET PO SCH ×2 (10:19→21:22)
[2018-08-08] MEDS: SERTRALINE 50MG TABLET PO SCH (10:19)
[2018-08-08] MEDS: FUROSEMIDE 20 MG/2 ML IV SCH ×2 (13:38→21:25)
[2018-08-08 14:00] VITALS: BP 123/75
[2018-08-08] MEDS: RIVAROXABAN 20 MG TABLET PO SCH (16:24)
[2018-08-08 20:08] VITALS: BP 104/68
[2018-08-08] MEDS: ATORVASTATIN 10 MG TABLET PO SCH (21:22)
[2018-08-09 01:58] VITALS: BP 100/60
[2018-08-09] MEDS: PIPERACILLIN/TAZO/PMX 3.375GM 50 ML IV SCH ×4 (04:53→20:58)
[2018-08-09] MEDS: GUAIFENESIN 200 MG TABLET PO SCH ×4 (05:01→21:00)
[2018-08-09] MEDS: FUROSEMIDE 20 MG/2 ML IV SCH ×2 (06:46→16:27)
[2018-08-09 06:59] VITALS: BP 110/68
[2018-08-09] MEDS: ALBUTEROL/IPRATROPIUM 2.5MG/0.5MG, 3 ML NPPB SCH ×4 (07:00→19:10)
[2018-08-09] MEDS ORDERED: SERTRALINE 100MG TABLET ONE (08:54)
[2018-08-09] MEDS: Mometasone/Formoterol (Dulera 200 Mcg/5 Mcg Inhaler) INH SCH ×2 (09:00→20:58)
[2018-08-09] MEDS: BUDESONIDE 0.5 MG/2 ML INHA NPPB SCH ×2 (09:00→19:10)
[2018-08-09] MEDS: Tiotropium Bromide** (Spiriva**) 18 MCG INH SCH (09:00)
[2018-08-09] MEDS: CHOLECALCIFEROL 1,000 UNIT TABLET PO SCH ×2 (09:48→20:57)
[2018-08-09] MEDS: SPIRONOLACTONE 25 MG TABLET PO SCH ×2 (09:49→20:57)
[2018-08-09] MEDS: ASCORBIC ACID 500 MG TABLET PO SCH ×2 (09:49→20:57)
[2018-08-09] MEDS: SERTRALINE 50MG TABLET PO SCH (09:50)
[2018-08-09 12:19] VITALS: BP 97/60
[2018-08-09 16:25] VITALS: BP 96/59
[2018-08-09] MEDS: RIVAROXABAN 20 MG TABLET PO SCH (16:27)
[2018-08-09] MEDS ORDERED: FUROSEMIDE 40 MG TABLET PO SCH (17:00)
[2018-08-09] MEDS: ATORVASTATIN 10 MG TABLET PO SCH (20:57)
[2018-08-09 21:00] VITALS: BP 101/65
[2018-08-10 02:14] VITALS: BP 90/48
[2018-08-10] MEDS: PIPERACILLIN/TAZO/PMX 3.375GM 50 ML IV SCH ×2 (04:00→10:03)
[2018-08-10 05:48] LABS: CHLORIDE 95 mmol/L (98-107)
[2018-08-10 05:54] LABS: ANION GAP 6 mmol/L (5-15)
[2018-08-10 06:20] LABS: BASOPHILS % (AUTO) 0 % (0-1); EOSINOPHILS # (AUTO) 0.01 x10^3/uL (0-0.4); EOSINOPHILS % (AUTO) 0 % (1-7); LYMPHOCYTES # (AUTO) 0.36 x10^3/uL (1-3.4); LYMPHOCYTES % (AUTO) 5 % (22-44); MD NO; MEAN CORPUSCULAR HEMOGLOBIN 29.1 pg (27.5-34.5); MEAN CORPUSCULAR HGB CONC 31.7 g/dL (33.2-36.2); MEAN CORPUSCULAR VOLUME 91.7 fL (81-97); MONOCYTES # (AUTO) 0.55 x10^3/uL (0.2-0.8); MONOCYTES % (AUTO) 8 % (2-9); NEUTROPHILS # (AUTO) 6.47 x10^3/uL (1.8-6.8); NEUTROPHILS % (AUTO) 88 % (42-75); PLATELET COUNT 181 x10^3/uL (130-400); RED BLOOD COUNT 3.27 x10^6/uL (4.38-5.82); RED CELL DISTRIBUTION WIDTH 16.8 % (9.4-14.8)
[2018-08-10] MEDS: GUAIFENESIN 200 MG TABLET PO SCH ×2 (06:21→12:10)
[2018-08-10] MEDS: BUDESONIDE 0.5 MG/2 ML INHA NPPB SCH (07:18)
[2018-08-10] MEDS: ALBUTEROL/IPRATROPIUM 2.5MG/0.5MG, 3 ML NPPB SCH ×3 (07:18→15:00)
[2018-08-10] MEDS: Tiotropium Bromide** (Spiriva**) 18 MCG INH SCH (07:42)
[2018-08-10] MEDS: Mometasone/Formoterol (Dulera 200 Mcg/5 Mcg Inhaler) INH SCH (07:42)
[2018-08-10 08:41] VITALS: BP 114/70
[2018-08-10] MEDS: FUROSEMIDE 20 MG/2 ML IV SCH (09:03)
[2018-08-10] MEDS: FERROUS SULFATE 325 MG TABLET PO SCH (09:03)
[2018-08-10] MEDS: SERTRALINE 50MG TABLET PO SCH (09:03)
[2018-08-10] MEDS: SPIRONOLACTONE 25 MG TABLET PO SCH (09:03)
[2018-08-10] MEDS: ASCORBIC ACID 500 MG TABLET PO SCH (09:03)
[2018-08-10] MEDS: CHOLECALCIFEROL 1,000 UNIT TABLET PO SCH (09:03)
[2018-08-10] MEDS ORDERED: LEVO750T26 PO (12:46)
[2018-08-10] MEDS ORDERED: FURO40TA6 PO (12:46)
[2018-08-10] MEDS ORDERED: PRED5TAB PO (12:46)
[2018-08-10 13:17] VITALS: BP 99/62
[2018-08-11] MEDS ORDERED: FUROSEMIDE 40 MG TABLET PO SCH (09:00)
== END 2018-08-10 15:00 | disposition home health service (06) | DRG 286 ==
LOC: ED 17:52 → EDIP 19:46 → 5SO 20:59 → DCLOUNGE 08-10 14:44
PROVIDERS: ADMIT Internal Medicine; ATTEND Internal Medicine
PROC: 4A023N8 Measurement of Cardiac Sampling and Pressure, Bilateral, Percutaneous Approach (ICD-10-PCS; principal; 2018-08-07)
PROC: B2111ZZ Fluoroscopy of Multiple Coronary Arteries using Low Osmolar Contrast (ICD-10-PCS; 2018-08-07)
PROC: B2181ZZ Fluoroscopy of Left Internal Mammary Bypass Graft using Low Osmolar Contrast (ICD-10-PCS; 2018-08-07)
PROC: B2121ZZ Fluoroscopy of Single Coronary Artery Bypass Graft using Low Osmolar Contrast (ICD-10-PCS; 2018-08-07)
DX: I11.0 Hypertensive heart disease with heart failure (principal); J15.6 Pneumonia due to other Gram-negative bacteria; J96.20 Acute and chronic respiratory failure, unspecified whether with hypoxia or hypercapnia; J44.1 Chronic obstructive pulmonary disease with (acute) exacerbation; D68.59 Other primary thrombophilia; J44.0 Chronic obstructive pulmonary disease with (acute) lower respiratory infection; I50.43 Acute on chronic combined systolic (congestive) and diastolic (congestive) heart failure; I42.9 Cardiomyopathy, unspecified; I27.20 Pulmonary hypertension, unspecified; I48.2 Chronic atrial fibrillation; E03.9 Hypothyroidism, unspecified; R91.1 Solitary pulmonary nodule; E78.5 Hyperlipidemia, unspecified; I07.1 Rheumatic tricuspid insufficiency; I25.10 Atherosclerotic heart disease of native coronary artery without angina pectoris; I35.0 Nonrheumatic aortic (valve) stenosis; J84.10 Pulmonary fibrosis, unspecified; Z79.01 Long term (current) use of anticoagulants; Z82.49 Family history of ischemic heart disease and other diseases of the circulatory system; I25.2 Old myocardial infarction; Z86.711 Personal history of pulmonary embolism; Z87.891 Personal history of nicotine dependence; Z95.1 Presence of aortocoronary bypass graft; Z95.2 Presence of prosthetic heart valve; Z99.81 Dependence on supplemental oxygen; Z79.899 Other long term (current) drug therapy; Z90.49 Acquired absence of other specified parts of digestive tract
CPT/HCPCS: 36415; 71250; 80048; 80053; 83605; 83735; 83880; 84145; 84484; 85025; 85610; 85730; 87040; 87070; 87077; 87186; 87205; 93005; 93306; 93457; 94640; 99156; 99157; 99285; C1769; C1894; G0378; J0583; J1644; J2250; J2543; J3010; J3490; J7620; J7626; J1940; J7512; Q9967

== ENCOUNTER → 2018-08-04 | Outpatient (CLI) | payer MEDICARE ==
[~2018-08-04] MED LIST changes: +AZIT500T PO
== END | disposition home or self-care (01) ==
LOC: RAD 15:37
PROVIDERS: ATTEND Family Medicine
DX: J98.8 Other specified respiratory disorders (principal); J84.10 Pulmonary fibrosis, unspecified; J96.11 Chronic respiratory failure with hypoxia
CPT/HCPCS: 71046

== ENCOUNTER → 2018-09-02 | Outpatient (CLI) | payer MEDICARE ==
[~2018-09-02] MED LIST changes: +FURO40TA6 PO; +LEVO750T26 PO; +OMNIPAQUE 350 MG/ML, 150 ML BOTTLE ONE
== END | disposition home or self-care (01) ==
LOC: RAD 11:24
PROVIDERS: ATTEND Internal Medicine Cardiovascular Disease
DX: K76.0 Fatty (change of) liver, not elsewhere classified (principal); J43.9 Emphysema, unspecified; R91.8 Other nonspecific abnormal finding of lung field; N28.1 Cyst of kidney, acquired; I65.22 Occlusion and stenosis of left carotid artery; I70.0 Atherosclerosis of aorta; R59.0 Localized enlarged lymph nodes; Z90.49 Acquired absence of other specified parts of digestive tract; Z95.1 Presence of aortocoronary bypass graft
CPT/HCPCS: 71275; 74174; 94060; 94726; 94729; Q9967

== ENCOUNTER → 2018-09-17 | Outpatient (CLI) | payer MEDICARE ==
[~2018-09-17] MED LIST changes: +ACET325T14 PO; +Iron PO; -OMNIPAQUE 350 MG/ML, 150 ML BOTTLE ONE; +POTA20TA14 PO
[2018-09-17 15:02] LABS: BASOPHILS # (AUTO) 0.05 x10^3/uL (0-0.1); BASOPHILS % (AUTO) 1 % (0-1); EOSINOPHILS # (AUTO) 0.04 x10^3/uL (0-0.4); EOSINOPHILS % (AUTO) 1 % (1-7); LYMPHOCYTES # (AUTO) 0.64 x10^3/uL (1-3.4); LYMPHOCYTES % (AUTO) 9 % (22-44); MD NO; MEAN CORPUSCULAR HGB CONC 30.9 g/dL (33.2-36.2); MEAN CORPUSCULAR VOLUME 84.2 fL (81-97); MEAN PLATELET VOLUME 8.2 fL (7.4-10.4); MONOCYTES # (AUTO) 0.61 x10^3/uL (0.2-0.8); MONOCYTES % (AUTO) 8 % (2-9); NEUTROPHILS # (AUTO) 5.94 x10^3/uL (1.8-6.8); NEUTROPHILS % (AUTO) 82 % (42-75); PLATELET COUNT 276 x10^3/uL (130-400); RED BLOOD COUNT 3.45 x10^6/uL (4.38-5.82); RED CELL DISTRIBUTION WIDTH 18.1 % (9.4-14.8)
[2018-09-17 15:08] LABS: ALANINE AMINOTRANSFERASE 21 U/L (12-78); ALBUMIN 4.2 g/dL (3.4-5.0); ANION GAP 6 mmol/L (5-15); CHLORIDE 100 mmol/L (98-107); CREATININE 1.34 mg/dL (0.7-1.3)
[2018-09-17 15:10] LABS: ALKALINE PHOSPHATASE 86 U/L (45-117); BILIRUBIN,TOTAL 0.7 mg/dL (0.2-1.0)
== END | disposition home or self-care (01) ==
LOC: CFH 14:05
PROVIDERS: ATTEND Physician Assistant
DX: J44.9 Chronic obstructive pulmonary disease, unspecified (principal); J84.9 Interstitial pulmonary disease, unspecified; I11.9 Hypertensive heart disease without heart failure; I48.0 Paroxysmal atrial fibrillation; Z95.1 Presence of aortocoronary bypass graft; Z87.891 Personal history of nicotine dependence
CPT/HCPCS: 36415; 71046; 80053; 85025

== ENCOUNTER 2018-09-22 08:38 | Inpatient (IN) | payer MEDICARE ==
[~2018-09-22] VITALS: Ht 190.5 cm; Wt 92.3 kg
[~2018-09-22 08:38] MED LIST changes: -ACET325T14 PO; -Iron PO; -POTA20TA14 PO
[2018-09-22] MEDS ORDERED: SODIUM CHLORIDE 0.9% 1,000 ML IV ONE (11:07)
[2018-09-22 11:13] VITALS: BP 103/73
[2018-09-22] MEDS ORDERED: CHLORHEXIDINE 15 ML UDC MM PRN (11:30)
[2018-09-22] MEDS ORDERED: PLEASE ENTER HEIGHT AND WEIGHT MC SCH (11:30)
[2018-09-22] MEDS ORDERED: Iron PO (11:30)
[2018-09-22] MEDS ORDERED: ONDANSETRON 2MG/ML, 2ML IVPush PRN (11:30)
[2018-09-22] MEDS ORDERED: POTA20TA14 PO (11:34)
[2018-09-22 12:10] LABS: BASOPHILS # (AUTO) 0.05 x10^3/uL (0-0.1); BASOPHILS % (AUTO) 1 % (0-1); EOSINOPHILS # (AUTO) 0.07 x10^3/uL (0-0.4); EOSINOPHILS % (AUTO) 1 % (1-7); LYMPHOCYTES # (AUTO) 0.41 x10^3/uL (1-3.4); LYMPHOCYTES % (AUTO) 7 % (22-44); MD NO; MEAN CORPUSCULAR HEMOGLOBIN 26.4 pg (27.5-34.5); MEAN CORPUSCULAR HGB CONC 31.5 g/dL (33.2-36.2); MEAN CORPUSCULAR VOLUME 83.6 fL (81-97); MEAN PLATELET VOLUME 8.2 fL (7.4-10.4); MONOCYTES # (AUTO) 0.49 x10^3/uL (0.2-0.8); MONOCYTES % (AUTO) 8 % (2-9); NEUTROPHILS # (AUTO) 5.14 x10^3/uL (1.8-6.8); NEUTROPHILS % (AUTO) 84 % (42-75); PLATELET COUNT 206 x10^3/uL (130-400); RED BLOOD COUNT 3.28 x10^6/uL (4.38-5.82)
[2018-09-22 12:13] LABS: CHLORIDE 101 mmol/L (98-107)
[2018-09-22 12:22] LABS: ALANINE AMINOTRANSFERASE 18 U/L (12-78); ALBUMIN 3.9 g/dL (3.4-5.0); ALKALINE PHOSPHATASE 75 U/L (45-117); ANION GAP 6 mmol/L (5-15); BILIRUBIN,TOTAL 0.7 mg/dL (0.2-1.0); CALCIUM 9.1 mg/dL (8.5-10.1); CREATININE 1.18 mg/dL (0.7-1.3); TOTAL PROTEIN 6.5 g/dL (6.4-8.2)
[2018-09-22 12:34] LABS: INTERNATIONAL NORMALIZED RATIO 1.2 (0.93-1.1); PROTHROMBIN TIME 12.5 Seconds (9.6-11.5)
[2018-09-22] MEDS ORDERED: FENTANYL PF 250 MCG/5ML ONE (12:56)
[2018-09-22] MEDS ORDERED: PHENYLEPHRINE 10 MG/ML ONE (12:56)
[2018-09-22] MEDS ORDERED: PROTAMINE SULFATE 10 MG/ML, 5ML ONE (13:55)
[2018-09-22] MEDS ORDERED: ONDANSETRON 2MG/ML, 2ML ONE ×2 (13:59→14:00)
[2018-09-22] MEDS ORDERED: DEXAMETHASONE 4 MG/ML, 1ML ONE ×2 (13:59→14:00)
[2018-09-22] MEDS ORDERED: PROPOFOL 10 MG/ML, 20ML ONE (13:59)
[2018-09-22] MEDS ORDERED: SUCCINYLCHOLINE 20 MG/ML, 10ML ONE (13:59)
[2018-09-22] MEDS ORDERED: CEFAZOLIN 1,000 MG ONE ×2 (13:59→14:00)
[2018-09-22] MEDS ORDERED: ROCURONIUM 10MG/ML,5ML ONE (14:00)
[2018-09-22] MEDS ORDERED: HEPARIN 1,000 UNITS/ML, 10ML ONE ×2 (14:00)
[2018-09-22] MEDS ORDERED: LABETALOL 20 MG/4 ML IVPush PRN (14:30)
[2018-09-22] MEDS ORDERED: LEVALBUTEROL HCL INH PRN (14:30)
[2018-09-22] MEDS ORDERED: HYDROcodone/APAP 5/325 TABLET PO PRN (14:30)
[2018-09-22] MEDS ORDERED: hydrALAzine 20 MG/ML, 1ML IVPush PRN (14:30)
[2018-09-22] MEDS ORDERED: ACETAMINOPHEN 325 MG TABLET PO PRN (14:30)
[2018-09-22 20:22] VITALS: BP 94/56
[2018-09-22] MEDS: MOMETASONE INH SCH (20:32)
[2018-09-22] MEDS: [UNRECOGNIZED DRUG - OTHER] INH SCH (20:32)
[2018-09-22] MEDS: FORMOTEROL INH SCH (20:32)
[2018-09-22] MEDS: SPIRONOLACTONE 25 MG TABLET PO SCH (20:35)
[2018-09-22] MEDS ORDERED: ATORVASTATIN 10 MG TABLET PO SCH (21:00)
[2018-09-23 00:34] VITALS: BP 91/59
[2018-09-23] MEDS ORDERED: MELATONIN 3 MG TABLET PO ONE (01:00)
[2018-09-23 06:01] LABS: BASOPHILS % (AUTO) 0 % (0-1); EOSINOPHILS # (AUTO) 0.06 x10^3/uL (0-0.4); EOSINOPHILS % (AUTO) 1 % (1-7); LYMPHOCYTES # (AUTO) 0.37 x10^3/uL (1-3.4); LYMPHOCYTES % (AUTO) 6 % (22-44); MD NO; MEAN CORPUSCULAR HEMOGLOBIN 26.7 pg (27.5-34.5); MEAN CORPUSCULAR HGB CONC 31.8 g/dL (33.2-36.2); MEAN PLATELET VOLUME 7.9 fL (7.4-10.4); MONOCYTES # (AUTO) 0.32 x10^3/uL (0.2-0.8); MONOCYTES % (AUTO) 5 % (2-9); NEUTROPHILS # (AUTO) 5.43 x10^3/uL (1.8-6.8); NEUTROPHILS % (AUTO) 88 % (42-75); PLATELET COUNT 183 x10^3/uL (130-400); RED BLOOD COUNT 2.94 x10^6/uL (4.38-5.82); RED CELL DISTRIBUTION WIDTH 19.6 % (9.4-14.8)
[2018-09-23 06:12] LABS: ANION GAP 6 mmol/L (5-15); CALCIUM 8.9 mg/dL (8.5-10.1); CHLORIDE 101 mmol/L (98-107); CREATININE 1.47 mg/dL (0.7-1.3)
[2018-09-23] MEDS ORDERED: ALBUTEROL/IPRATROPIUM 2.5MG/0.5MG, 3 ML ONE (06:50)
[2018-09-23 07:10] VITALS: BP 91/59
[2018-09-23] MEDS ORDERED: RIVAROXABAN 20 MG TABLET PO SCH (09:00)
[2018-09-23] MEDS: MOMETASONE INH SCH (09:00)
[2018-09-23] MEDS: [UNRECOGNIZED DRUG - OTHER] INH SCH (09:00)
[2018-09-23] MEDS ORDERED: ALBUTEROL/IPRATROPIUM 2.5MG/0.5MG, 3 ML NPPB SCH (09:00)
[2018-09-23] MEDS ORDERED: SERTRALINE 50MG TABLET PO SCH (09:00)
[2018-09-23] MEDS: FORMOTEROL INH SCH (09:00)
[2018-09-23] MEDS ORDERED: TEMPLATE NON-FORMULARY MED. (Tiotropium Bromide** (Spiriva**) 18 MCG) INH SCH (09:00)
[2018-09-23] MEDS ORDERED: FERROUS SULFATE 325 MG TABLET PO SCH (09:00)
[2018-09-23] MEDS ORDERED: FUROSEMIDE 40 MG TABLET PO SCH (09:00)
[2018-09-23] MEDS ORDERED: POTASSIUM CHLORIDE 20 MEQ TAB.ER.PRT PO SCH (09:00)
[2018-09-23 09:45] VITALS: BP 105/69
[2018-09-23] MEDS: SPIRONOLACTONE 25 MG TABLET PO SCH (09:58)
[2018-09-23] MEDS ORDERED: FURO40TA6 PO (11:00)
[2018-09-23] MEDS ORDERED: SPIR25TA PO (11:00)
[2018-09-23] MEDS ORDERED: POTA20TA14 PO (11:00)
[2018-09-23] MEDS ORDERED: ACET325T14 PO (11:00)
[2018-09-23 12:36] VITALS: BP 112/72
[2018-09-24] MEDS ORDERED: FUROSEMIDE 20 MG TABLET PO SCH (09:00)
[2018-09-24] MEDS ORDERED: SPIRONOLACTONE 25 MG TABLET PO SCH (09:00)
[2018-09-24] MEDS ORDERED: POTASSIUM CHLORIDE 10 MEQ TABLET.ER PO SCH (09:00)
== END 2018-09-23 16:35 | disposition home health service (06) | DRG 266 ==
LOC: ORIP 10:41 → ICU 14:23 → 5SO 18:15 → DCLOUNGE 09-23 16:25
PROVIDERS: ADMIT Internal Medicine Cardiovascular Disease; ATTEND Internal Medicine Cardiovascular Disease
PROC: B246ZZ4 Ultrasonography of Right and Left Heart, Transesophageal (ICD-10-PCS; 2018-09-22)
PROC: 03HY32Z Insertion of Monitoring Device into Upper Artery, Percutaneous Approach (ICD-10-PCS; 2018-09-22)
PROC: 02RF38Z Replacement of Aortic Valve with Zooplastic Tissue, Percutaneous Approach (ICD-10-PCS; principal; 2018-09-22 14:00)
DX: I35.0 Nonrheumatic aortic (valve) stenosis (principal); Z00.6 Encounter for examination for normal comparison and control in clinical research program; I50.43 Acute on chronic combined systolic (congestive) and diastolic (congestive) heart failure; D68.69 Other thrombophilia; N40.0 Benign prostatic hyperplasia without lower urinary tract symptoms; I48.0 Paroxysmal atrial fibrillation; E78.5 Hyperlipidemia, unspecified; D50.9 Iron deficiency anemia, unspecified; I11.0 Hypertensive heart disease with heart failure; I25.10 Atherosclerotic heart disease of native coronary artery without angina pectoris; J44.9 Chronic obstructive pulmonary disease, unspecified; I27.20 Pulmonary hypertension, unspecified; Z86.711 Personal history of pulmonary embolism; Z95.1 Presence of aortocoronary bypass graft
CPT/HCPCS: 33361; 36415; 80048; 80053; 83880; 85025; 85347; 85610; 85730; 86850; 86900; 86923; 87081; 93005; 93306; 93312; 93321; 93325; 93355; C1760; C1769; C1894; G0378; J0690; J1100; J1644; J2405; J2704; J2720; J3010; J7620; J0330; J2370; J7030; Q9967

== ENCOUNTER → 2018-09-28 | Outpatient (CLI) | payer MEDICARE ==
[~2018-09-28] MED LIST changes: +ACET325T14 PO; +Iron PO; +POTA20TA14 PO
[2018-09-28 12:43] LABS: BASOPHILS % (AUTO) 0 % (0-1); EOSINOPHILS # (AUTO) 0.23 x10^3/uL (0-0.4); EOSINOPHILS % (AUTO) 4 % (1-7); LYMPHOCYTES # (AUTO) 0.49 x10^3/uL (1-3.4); LYMPHOCYTES % (AUTO) 9 % (22-44); MD NO; MEAN CORPUSCULAR HEMOGLOBIN 27.7 pg (27.5-34.5); MEAN CORPUSCULAR VOLUME 86.5 fL (81-97); MEAN PLATELET VOLUME 8.8 fL (7.4-10.4); MONOCYTES # (AUTO) 0.51 x10^3/uL (0.2-0.8); MONOCYTES % (AUTO) 9 % (2-9); NEUTROPHILS # (AUTO) 4.43 x10^3/uL (1.8-6.8); NEUTROPHILS % (AUTO) 78 % (42-75); PLATELET COUNT 149 x10^3/uL (130-400); RED BLOOD COUNT 3.15 x10^6/uL (4.38-5.82); RED CELL DISTRIBUTION WIDTH 21.9 % (9.4-14.8)
[2018-09-28 13:06] LABS: CALCIUM 8.7 mg/dL (8.5-10.1); CREATININE 1.17 mg/dL (0.7-1.3); IRON LEVEL 27 mcg/dL (65-175)
[2018-09-28 13:11] LABS: % IRON SATURATION 6 % (20-55); TOTAL IRON BINDING CAPACITY 464 mcg/dL (250-450)
[2018-09-28 13:14] LABS: ANION GAP 4 mmol/L (5-15); CHLORIDE 104 mmol/L (98-107)
== END | disposition home or self-care (01) ==
LOC: CFH 08:49
PROVIDERS: ATTEND Internal Medicine Cardiovascular Disease
DX: N17.9 Acute kidney failure, unspecified (principal); D64.9 Anemia, unspecified
CPT/HCPCS: 36415; 80048; 82668; 82728; 83540; 83550; 85025

== ENCOUNTER 2018-10-13 11:17 | Inpatient (IN) | payer MEDICARE ==
[~2018-10-13] VITALS: Ht 190.5 cm; Wt 93.4 kg
[2018-10-13] MEDS ORDERED: FUROSEMIDE 40 MG/4 ML ONE (11:45)
[2018-10-13] MEDS ORDERED: FUROSEMIDE 40 MG/4 ML IVPush ONE (12:00)
[2018-10-13 12:01] LABS: MEAN CORPUSCULAR HEMOGLOBIN 28.6 pg (27.5-34.5); MEAN CORPUSCULAR HGB CONC 31.8 g/dL (33.2-36.2); MEAN CORPUSCULAR VOLUME 89.9 fL (81-97); MEAN PLATELET VOLUME 8.6 fL (7.4-10.4); PLATELET COUNT 161 x10^3/uL (130-400); RED BLOOD COUNT 3.46 x10^6/uL (4.38-5.82); RED CELL DISTRIBUTION WIDTH 26.2 % (9.4-14.8)
[2018-10-13 12:09] LABS: INTERNATIONAL NORMALIZED RATIO 1.41 (0.93-1.1); PROTHROMBIN TIME 14.6 Seconds (9.6-11.5)
[2018-10-13 12:10] LABS: ALANINE AMINOTRANSFERASE 22 U/L (12-78); ANION GAP 6 mmol/L (5-15); CHLORIDE 105 mmol/L (98-107); CREATININE 1.14 mg/dL (0.7-1.3)
[2018-10-13 12:14] LABS: ALKALINE PHOSPHATASE 86 U/L (45-117); BASOPHILS # (AUTO) 0.06 x10^3/uL (0-0.1); BASOPHILS % (AUTO) 1 % (0-1); BILIRUBIN,TOTAL 0.6 mg/dL (0.2-1.0); EOSINOPHILS # (AUTO) 0.16 x10^3/uL (0-0.4); EOSINOPHILS % (AUTO) 2 % (1-7); LYMPHOCYTES % (AUTO) 5 % (22-44); MD MORPH REVIEW ONLY; MONOCYTES # (AUTO) 0.37 x10^3/uL (0.2-0.8); MONOCYTES % (AUTO) 5 % (2-9); NEUTROPHILS # (AUTO) 6.42 x10^3/uL (1.8-6.8); NEUTROPHILS % (AUTO) 87 % (42-75); TOTAL PROTEIN 6.8 g/dL (6.4-8.2)
[2018-10-13 13:07] LABS: ANISOCYTOSIS 1+; HYPOCHROMIA 1+; OVALOCYTES 1+
[2018-10-13 13:08] LABS: <PLATELET ESTIMATE> ADEQUATE; <PLT MORPHOLOGY> NORMAL PLT MORPH; MICROCYTOSIS 1+; POLYCHROMASIA 1+
[2018-10-13] MEDS ORDERED: SODIUM CHLORIDE FLUSH 10ML SYR IVF PRN (13:30)
[2018-10-13] MEDS ORDERED: POTA20PA25 PO (14:01)
[2018-10-13] MEDS ORDERED: FURO20TA3 PO (14:01)
[2018-10-13 15:00] VITALS: BP 114/70
[2018-10-13] MEDS ORDERED: ALBU90AE INH (15:36)
[2018-10-13] MEDS ORDERED: hydrALAzine 20 MG/ML, 1ML IVPush PRN (16:30)
[2018-10-13] MEDS ORDERED: ACETAMINOPHEN 325 MG TABLET PO PRN (16:30)
[2018-10-13] MEDS ORDERED: POLYETHYLENE GLYCOL 17 GM PACKET PO PRN (16:30)
[2018-10-13] MEDS ORDERED: ONDANSETRON 2MG/ML, 2ML IVPush PRN (16:30)
[2018-10-13] MEDS ORDERED: morphine SULFATE 10 MG/ML, 1ML IVPush PRN (16:30)
[2018-10-13] MEDS ORDERED: ONDANSETRON ODT 4 MG PO PRN (16:30)
[2018-10-13] MEDS ORDERED: PROMETHAZINE 25 MG/ML, 1ML IM PRN (16:30)
[2018-10-13] MEDS ORDERED: DOCUSATE 100 MG CAPSULE PO PRN (16:30)
[2018-10-13] MEDS ORDERED: ALBUTEROL SULFATE 2.5 MG/3 ML NEB PRN (16:30)
[2018-10-13] MEDS ORDERED: BISACODYL 10 MG SUPP PR PRN (16:30)
[2018-10-13] MEDS ORDERED: HYDROcodone/APAP 5/325 TABLET PO PRN (16:30)
[2018-10-13 17:00] LABS: FREE T4 (FREE THYROXINE) 0.91 ng/dL (0.76-1.46); THYROID STIMULATING HORMONE 3.59 mIU/L (0.358-3.740)
[2018-10-13] MEDS ORDERED: ALBUTEROL SULFATE 2.5 MG/3 ML NPPB SCH (17:00)
[2018-10-13] MEDS ORDERED: IPRATROPIUM 0.5 MG/2.5 ML INHA NPPB SCH (17:00)
[2018-10-13] MEDS ORDERED: ALBUTEROL/IPRATROPIUM 2.5MG/0.5MG, 3 ML ONE (17:22)
[2018-10-13 17:24] LABS: HEMOGLOBIN A1C 4.6 % (4.2-6.3)
[2018-10-13 17:29] LABS: TROPONIN I 0.066 ng/mL (0.000-0.045)
[2018-10-13] MEDS: FERROUS SULFATE 325 MG TABLET PO SCH (17:41)
[2018-10-13] MEDS: FUROSEMIDE 20 MG/2 ML IV SCH (17:41)
[2018-10-13 18:54] LABS: MICROSCOPIC NOT IND
[2018-10-13 19:05] LABS: CULTURE INDICATED? NO
[2018-10-13 19:10] VITALS: BP 102/57
[2018-10-13] MEDS: ALBUTEROL/IPRATROPIUM 2.5MG/0.5MG, 3 ML NPPB SCH (20:30)
[2018-10-13] MEDS: BUDESONIDE 0.5 MG/2 ML INHA NPPB SCH ×2 (20:30→21:00)
[2018-10-13] MEDS: RIVAROXABAN 20 MG TABLET PO SCH (20:48)
[2018-10-13] MEDS: ATORVASTATIN 10 MG TABLET PO SCH (20:48)
[2018-10-13] MEDS: MELATONIN 5 MG TABLET PO PRN (21:15)
[2018-10-13 22:44] LABS: TROPONIN I 0.083 ng/mL (0.000-0.045)
[2018-10-14 01:26] VITALS: BP 99/62
[2018-10-14] MEDS: ALBUTEROL/IPRATROPIUM 2.5MG/0.5MG, 3 ML NPPB SCH ×4 (02:35→21:05)
[2018-10-14 05:13] LABS: MEAN CORPUSCULAR HGB CONC 31.1 g/dL (33.2-36.2); MEAN CORPUSCULAR VOLUME 89.8 fL (81-97); MEAN PLATELET VOLUME 8.6 fL (7.4-10.4); PLATELET COUNT 139 x10^3/uL (130-400); RED BLOOD COUNT 3.18 x10^6/uL (4.38-5.82); RED CELL DISTRIBUTION WIDTH 27.2 % (9.4-14.8)
[2018-10-14 05:21] LABS: CALCIUM 8.7 mg/dL (8.5-10.1); CHLORIDE 104 mmol/L (98-107)
[2018-10-14 05:29] LABS: ALANINE AMINOTRANSFERASE 19 U/L (12-78); ALBUMIN 3.5 g/dL (3.4-5.0); ALKALINE PHOSPHATASE 79 U/L (45-117); ANION GAP 5 mmol/L (5-15); BILIRUBIN,TOTAL 0.5 mg/dL (0.2-1.0); CHOLESTEROL, TOTAL 97 mg/dL (140-239); CREATININE 1.16 mg/dL (0.7-1.3); HDL CHOL % 51 % (26-37); HDL CHOLESTEROL (DIRECT) 49 mg/dL (40-60); LDL CHOLESTEROL,CALCULATED 38 mg/dL (54-169); LDL/HDL RATIO 0.8 (0.5-3.0); TRIGLYCERIDES 49 mg/dL (50-200); TROPONIN I 0.079 ng/mL (0.000-0.045); VLDL CHOLESTEROL 10 mg/dL (0-25)
[2018-10-14 06:26] LABS: BASOPHILS # (AUTO) 0.05 x10^3/uL (0-0.1); BASOPHILS % (AUTO) 1 % (0-1); EOSINOPHILS # (AUTO) 0.17 x10^3/uL (0-0.4); EOSINOPHILS % (AUTO) 3 % (1-7); LYMPHOCYTES # (AUTO) 0.37 x10^3/uL (1-3.4); LYMPHOCYTES % (AUTO) 6 % (22-44); MD SCAN; MONOCYTES # (AUTO) 0.48 x10^3/uL (0.2-0.8); MONOCYTES % (AUTO) 8 % (2-9); NEUTROPHILS % (AUTO) 82 % (42-75)
[2018-10-14] MEDS: FUROSEMIDE 20 MG/2 ML IV SCH ×2 (06:35→16:29)
[2018-10-14 07:18] VITALS: BP 91/52
[2018-10-14] MEDS: POTASSIUM CHLORIDE 20 MEQ PACKET PO SCH (07:45)
[2018-10-14] MEDS: ASCORBIC ACID 500 MG TABLET PO SCH (07:45)
[2018-10-14] MEDS: CHOLECALCIFEROL 1,000 UNIT TABLET PO SCH (07:45)
[2018-10-14] MEDS: BUDESONIDE 0.5 MG/2 ML INHA NPPB SCH ×2 (07:45→21:05)
[2018-10-14] MEDS: SERTRALINE 50MG TABLET PO SCH (07:45)
[2018-10-14] MEDS: FERROUS SULFATE 325 MG TABLET PO SCH (07:45)
[2018-10-14 13:07] VITALS: BP 112/71
[2018-10-14 19:22] VITALS: BP 98/62
[2018-10-14] MEDS: RIVAROXABAN 20 MG TABLET PO SCH (20:53)
[2018-10-14] MEDS: MELATONIN 5 MG TABLET PO PRN (20:53)
[2018-10-14] MEDS: ATORVASTATIN 10 MG TABLET PO SCH (20:53)
[2018-10-15 01:01] VITALS: BP 103/59
[2018-10-15] MEDS: ALBUTEROL/IPRATROPIUM 2.5MG/0.5MG, 3 ML NPPB SCH ×2 (02:45→09:05)
[2018-10-15 05:37] LABS: ANION GAP 5 mmol/L (5-15); CALCIUM 8.9 mg/dL (8.5-10.1); CHLORIDE 102 mmol/L (98-107); CREATININE 1.25 mg/dL (0.7-1.3)
[2018-10-15 05:43] LABS: MEAN CORPUSCULAR HEMOGLOBIN 28.1 pg (27.5-34.5); MEAN CORPUSCULAR HGB CONC 31.2 g/dL (33.2-36.2); MEAN PLATELET VOLUME 8.5 fL (7.4-10.4); PLATELET COUNT 132 x10^3/uL (130-400); RED BLOOD COUNT 3.05 x10^6/uL (4.38-5.82); RED CELL DISTRIBUTION WIDTH 26.9 % (9.4-14.8)
[2018-10-15 06:48] LABS: BASOPHILS # (AUTO) 0.01 x10^3/uL (0-0.1); BASOPHILS % (AUTO) 0 % (0-1); EOSINOPHILS # (AUTO) 0.11 x10^3/uL (0-0.4); EOSINOPHILS % (AUTO) 2 % (1-7); LYMPHOCYTES # (AUTO) 0.36 x10^3/uL (1-3.4); LYMPHOCYTES % (AUTO) 7 % (22-44); MD MORPH REVIEW ONLY; MONOCYTES # (AUTO) 0.48 x10^3/uL (0.2-0.8); MONOCYTES % (AUTO) 9 % (2-9); NEUTROPHILS # (AUTO) 4.17 x10^3/uL (1.8-6.8); NEUTROPHILS % (AUTO) 81 % (42-75)
[2018-10-15 06:49] LABS: ANISOCYTOSIS 2+
[2018-10-15] MEDS: FUROSEMIDE 20 MG/2 ML IV SCH ×2 (06:49→17:00)
[2018-10-15 06:50] LABS: HYPOCHROMIA 1+; MICROCYTOSIS 1+; POLYCHROMASIA 1+
[2018-10-15 06:51] LABS: OVALOCYTES 1+
[2018-10-15 06:52] LABS: <PLATELET ESTIMATE> ADEQUATE; <PLT MORPHOLOGY> NORMAL PLT MORPH; SCHISTOCYTES 1+
[2018-10-15] MEDS: BUDESONIDE 0.5 MG/2 ML INHA NPPB SCH (09:05)
[2018-10-15 09:09] VITALS: BP 93/59
[2018-10-15] MEDS: FERROUS SULFATE 325 MG TABLET PO SCH (09:18)
[2018-10-15] MEDS: SERTRALINE 50MG TABLET PO SCH (09:19)
[2018-10-15] MEDS: CHOLECALCIFEROL 1,000 UNIT TABLET PO SCH (09:19)
[2018-10-15] MEDS: POTASSIUM CHLORIDE 20 MEQ PACKET PO SCH (09:19)
[2018-10-15] MEDS: ASCORBIC ACID 500 MG TABLET PO SCH (09:19)
[2018-10-15] MEDS ORDERED: FUROSEMIDE 20 MG/2 ML IV ONE (10:30)
[2018-10-15 10:59] VITALS: BP 122/82
[2018-10-15 14:00] VITALS: BP 124/67
[2018-10-15] MEDS ORDERED: FURO40TA6 PO (16:35)
[2018-10-15] MEDS ORDERED: ALBUTEROL/IPRATROPIUM 2.5MG/0.5MG, 3 ML NPPB SCH (21:00)
== END 2018-10-15 18:09 | disposition home or self-care (01) | DRG 280 ==
LOC: ED 12:21 → EDIP 13:03 → 5SO 14:54
PROVIDERS: ADMIT Internal Medicine; ATTEND Internal Medicine
DX: I11.0 Hypertensive heart disease with heart failure (principal); J18.9 Pneumonia, unspecified organism; I21.A1 Myocardial infarction type 2; D68.69 Other thrombophilia; J96.11 Chronic respiratory failure with hypoxia; N40.0 Benign prostatic hyperplasia without lower urinary tract symptoms; I48.2 Chronic atrial fibrillation; I25.10 Atherosclerotic heart disease of native coronary artery without angina pectoris; I35.0 Nonrheumatic aortic (valve) stenosis; E78.5 Hyperlipidemia, unspecified; J43.9 Emphysema, unspecified; I27.81 Cor pulmonale (chronic); D50.9 Iron deficiency anemia, unspecified; I50.43 Acute on chronic combined systolic (congestive) and diastolic (congestive) heart failure; I48.0 Paroxysmal atrial fibrillation; Z99.81 Dependence on supplemental oxygen; Z95.1 Presence of aortocoronary bypass graft; Z86.711 Personal history of pulmonary embolism; Z82.49 Family history of ischemic heart disease and other diseases of the circulatory system; I25.2 Old myocardial infarction; Z95.2 Presence of prosthetic heart valve; Z87.891 Personal history of nicotine dependence; Z90.49 Acquired absence of other specified parts of digestive tract
CPT/HCPCS: 36415; 71045; 80048; 80053; 80061; 81003; 83036; 83735; 83880; 84439; 84443; 84484; 85025; 85610; 85730; 93005; 93306; 94640; 99285; G0378; J1940; J7620; J7626

== ENCOUNTER → 2018-11-18 | Outpatient (CLI) | payer MEDICARE ==
[~2018-11-18] MED LIST changes: +ALBU90AE INH; +POTA20PA25 PO
[2018-11-18 13:20] LABS: MEAN CORPUSCULAR HEMOGLOBIN 29.5 pg (27.5-34.5); MEAN PLATELET VOLUME 8.9 fL (7.4-10.4); PLATELET COUNT 148 x10^3/uL (130-400); RED BLOOD COUNT 3.24 x10^6/uL (4.38-5.82); RED CELL DISTRIBUTION WIDTH 20.1 % (9.4-14.8)
[2018-11-18 13:28] LABS: ANION GAP 5 mmol/L (5-15); CHLORIDE 105 mmol/L (98-107)
[2018-11-18 13:31] LABS: ALANINE AMINOTRANSFERASE 26 U/L (12-78); ALKALINE PHOSPHATASE 63 U/L (45-117); BILIRUBIN,TOTAL 0.9 mg/dL (0.2-1.0); CHOL/HDL RATIO 1.9; CHOLESTEROL, TOTAL 123 mg/dL (140-239); CREATININE 1.12 mg/dL (0.7-1.3); HDL CHOL % 53 % (26-37); HDL CHOLESTEROL (DIRECT) 65 mg/dL (40-60); LDL CHOLESTEROL,CALCULATED 47 mg/dL (54-169); LDL/HDL RATIO 0.7 (0.5-3.0); TOTAL PROTEIN 6.5 g/dL (6.4-8.2); TRIGLYCERIDES 57 mg/dL (50-200); VLDL CHOLESTEROL 11 mg/dL (0-25)
== END | disposition home or self-care (01) ==
LOC: CFH 08:05
PROVIDERS: ATTEND Internal Medicine Cardiovascular Disease
DX: D64.9 Anemia, unspecified (principal); E78.2 Mixed hyperlipidemia; I10 Essential (primary) hypertension; I26.99 Other pulmonary embolism without acute cor pulmonale; I48.0 Paroxysmal atrial fibrillation; J44.9 Chronic obstructive pulmonary disease, unspecified
CPT/HCPCS: 36415; 80053; 80061; 85027

== ENCOUNTER 2018-12-10 12:56 | Inpatient (IN) | payer MEDICARE ==
[~2018-12-10] VITALS: Ht 190.5 cm; Wt 89.5 kg
--- NOTE | 2018-12-10 13:19 | NUR ---
BREAK RN- APPLIED CONTINUOUS CARDIAC AND SPO2 MONIORS AND BP CUFF APPLIED AT Q30 MINS. ERNA CANAS AT BEDSIDE. AT BEDSIDE. PT C/O INCREASING SOB THIS AM BUT IS IN NO ACUTE DISTRESS.
[2018-12-10] MEDS ORDERED: FURO20TA3 PO (13:24)
[2018-12-10] MEDS ORDERED: ALBUTEROL/IPRATROPIUM 2.5MG/0.5MG, 3 ML ONE (13:30)
[2018-12-10] MEDS ORDERED: ALBUTEROL/IPRATROPIUM 2.5MG/0.5MG, 3 ML NPPB ONE ×2 (13:30→14:30)
[2018-12-10] MEDS ORDERED: SODIUM CHLORIDE FLUSH 10ML SYR IVF ONE (13:30)
[2018-12-10 13:46] LABS: BASOPHILS % (AUTO) 0 % (0-1); EOSINOPHILS # (AUTO) 0.11 x10^3/uL (0-0.4); EOSINOPHILS % (AUTO) 2 % (1-7); LYMPHOCYTES # (AUTO) 0.45 x10^3/uL (1-3.4); LYMPHOCYTES % (AUTO) 9 % (22-44); MD NO; MEAN CORPUSCULAR HEMOGLOBIN 30.4 pg (27.5-34.5); MEAN CORPUSCULAR HGB CONC 31.5 g/dL (33.2-36.2); MEAN CORPUSCULAR VOLUME 96.6 fL (81-97); MONOCYTES # (AUTO) 0.38 x10^3/uL (0.2-0.8); MONOCYTES % (AUTO) 8 % (2-9); NEUTROPHILS % (AUTO) 81 % (42-75); PLATELET COUNT 171 x10^3/uL (130-400); RED BLOOD COUNT 3.25 x10^6/uL (4.38-5.82); RED CELL DISTRIBUTION WIDTH 19.1 % (9.4-14.8)
[2018-12-10 13:56] LABS: ALBUMIN 3.8 g/dL (3.4-5.0); ANION GAP 7 mmol/L (5-15); CALCIUM 8.9 mg/dL (8.5-10.1); CHLORIDE 107 mmol/L (98-107)
[2018-12-10 14:00] LABS: TROPONIN I 0.059 ng/mL (0.000-0.045)
--- NOTE | 2018-12-10 14:01 | NUR ---
pt upright on gurney awake & comfortable with suppl O2 in place, seen by RT, responds approp to staff, comfort measures provided, at BS, call light within reach.
--- NOTE | 2018-12-10 15:02 | NUR ---
pt remains upright on gurney awake & comfortable, responds approp to staff, NAD, comfort measures provided, at BS, call light within reach.
--- NOTE | 2018-12-10 16:00 | NUR ---
Pt to be admitted to medical, room 355. Report called to Jeanne. pt upright on gurney awake & comfortable with suppl O2 in place, responds approp to staff, comfort measures provided, at BS, call light within reach.
[2018-12-10 16:23] VITALS: BP 121/74
[2018-12-10 17:03] VITALS: BP 121/74
[2018-12-10] MEDS ORDERED: ENOXAPARIN 40 MG/0.4 ML SQ SCH (17:30)
[2018-12-10] MEDS ORDERED: ONDANSETRON ODT 4 MG PO PRN (18:00)
[2018-12-10] MEDS ORDERED: LABETALOL 5 MG/ML SYRINGE IVPush PRN (18:00)
[2018-12-10] MEDS ORDERED: Albuterol Sulfate (Proair Respiclick) INH PRN (18:00)
[2018-12-10] MEDS ORDERED: ONDANSETRON 2MG/ML, 2ML IVPush PRN (18:00)
[2018-12-10 18:15] LABS: INTERNATIONAL NORMALIZED RATIO 1.27 (0.93-1.1); PROTHROMBIN TIME 13.2 Seconds (9.6-11.5)
[2018-12-10] MEDS: RIVAROXABAN 20 MG TABLET PO SCH (18:23)
[2018-12-10] MEDS: FUROSEMIDE 20 MG/2 ML IV SCH (18:23)
[2018-12-10 19:12] VITALS: BP 106/61
[2018-12-10] MEDS ORDERED: ALBUTEROL/IPRATROPIUM 2.5MG/0.5MG, 3 ML NPPB PRN (19:30)
[2018-12-10] MEDS: BUDESONIDE 0.5 MG/2 ML INHA NPPB SCH (21:20)
[2018-12-10] MEDS: ALBUTEROL/IPRATROPIUM 2.5MG/0.5MG, 3 ML NPPB SCH (21:20)
[2018-12-10] MEDS: ATORVASTATIN 10 MG TABLET PO SCH (22:18)
[2018-12-10] MEDS: DIPHENHYDRAMINE 50 MG CAPSULE PO PRN (22:18)
[2018-12-10] MEDS: methylPREDNISolone SOD SUCC 125 MG/2 ML IVPush SCH (22:18)
[2018-12-10 23:35] LABS: TROPONIN I 0.054 ng/mL (0.000-0.045)
[2018-12-11] MEDS: ALBUTEROL/IPRATROPIUM 2.5MG/0.5MG, 3 ML NPPB SCH ×4 (01:39→20:43)
[2018-12-11 02:07] VITALS: BP 108/62
[2018-12-11] MEDS: methylPREDNISolone SOD SUCC 125 MG/2 ML IVPush SCH ×4 (04:37→22:32)
[2018-12-11 05:48] LABS: BASOPHILS % (AUTO) 0 % (0-1); EOSINOPHILS % (AUTO) 0 % (1-7); LYMPHOCYTES # (AUTO) 0.15 x10^3/uL (1-3.4); LYMPHOCYTES % (AUTO) 5 % (22-44); MD NO; MEAN CORPUSCULAR HGB CONC 31.4 g/dL (33.2-36.2); MEAN CORPUSCULAR VOLUME 95.4 fL (81-97); MEAN PLATELET VOLUME 8.4 fL (7.4-10.4); MONOCYTES # (AUTO) 0.02 x10^3/uL (0.2-0.8); MONOCYTES % (AUTO) 1 % (2-9); NEUTROPHILS # (AUTO) 3.01 x10^3/uL (1.8-6.8); NEUTROPHILS % (AUTO) 94 % (42-75); PLATELET COUNT 139 x10^3/uL (130-400); RED BLOOD COUNT 3.14 x10^6/uL (4.38-5.82); RED CELL DISTRIBUTION WIDTH 19.6 % (9.4-14.8)
[2018-12-11 05:59] LABS: ALANINE AMINOTRANSFERASE 21 U/L (12-78); ALBUMIN 3.6 g/dL (3.4-5.0); ANION GAP 6 mmol/L (5-15); CALCIUM 8.7 mg/dL (8.5-10.1); CHLORIDE 107 mmol/L (98-107); CREATININE 1.05 mg/dL (0.7-1.3)
[2018-12-11 06:10] LABS: ALKALINE PHOSPHATASE 79 U/L (45-117); BILIRUBIN,TOTAL 0.6 mg/dL (0.2-1.0); THYROID STIMULATING HORMONE 0.687 mIU/L (0.358-3.740); TOTAL PROTEIN 6.2 g/dL (6.4-8.2)
[2018-12-11 07:19] VITALS: BP 131/76
[2018-12-11] MEDS ORDERED: PANTOPRAZOLE 40 MG IV IVPush SCH (07:30)
[2018-12-11] MEDS: SERTRALINE 50MG TABLET PO SCH (08:05)
[2018-12-11] MEDS: SPIRONOLACTONE 25 MG TABLET PO SCH (08:05)
[2018-12-11] MEDS: FUROSEMIDE 20 MG/2 ML IV SCH (08:05)
[2018-12-11 08:22] LABS: TROPONIN I 0.053 ng/mL (0.000-0.045)
[2018-12-11] MEDS: BUDESONIDE 0.5 MG/2 ML INHA NPPB SCH ×2 (08:25→20:43)
[2018-12-11 12:55] VITALS: BP 101/57
[2018-12-11] MEDS: CEFTRIAXONE PMX 1GM/50ML 50 ML IV SCH (17:53)
[2018-12-11] MEDS: RIVAROXABAN 20 MG TABLET PO SCH (17:53)
[2018-12-11 19:18] VITALS: BP 112/70
[2018-12-11] MEDS: DOXYCYCLINE 100MG TABLET PO SCH (20:57)
[2018-12-11] MEDS: GUAIFENESIN 200 MG TABLET PO SCH (20:57)
[2018-12-11] MEDS: ATORVASTATIN 10 MG TABLET PO SCH (20:58)
[2018-12-11] MEDS: DIPHENHYDRAMINE 50 MG CAPSULE PO PRN (21:00)
[2018-12-12 00:59] VITALS: BP 129/70
[2018-12-12] MEDS: ALBUTEROL/IPRATROPIUM 2.5MG/0.5MG, 3 ML NPPB SCH ×4 (02:13→20:47)
[2018-12-12 04:23] LABS: ALANINE AMINOTRANSFERASE 22 U/L (12-78); ALBUMIN 3.8 g/dL (3.4-5.0); ANION GAP 7 mmol/L (5-15); CALCIUM 9.3 mg/dL (8.5-10.1); CHLORIDE 105 mmol/L (98-107); CREATININE 1.34 mg/dL (0.7-1.3)
[2018-12-12 04:26] LABS: ALKALINE PHOSPHATASE 74 U/L (45-117); BILIRUBIN,TOTAL 0.4 mg/dL (0.2-1.0); TOTAL PROTEIN 6.4 g/dL (6.4-8.2)
[2018-12-12] MEDS: methylPREDNISolone SOD SUCC 125 MG/2 ML IVPush SCH ×4 (05:14→23:33)
[2018-12-12] MEDS: PANTOPROZOLE 40MG TABLET PO SCH (05:14)
[2018-12-12] MEDS: GUAIFENESIN 200 MG TABLET PO SCH ×4 (05:14→20:01)
[2018-12-12 06:16] LABS: MEAN CORPUSCULAR HEMOGLOBIN 30.3 pg (27.5-34.5); MEAN CORPUSCULAR HGB CONC 31.8 g/dL (33.2-36.2); MEAN CORPUSCULAR VOLUME 95.3 fL (81-97); MEAN PLATELET VOLUME 8.9 fL (7.4-10.4); PLATELET COUNT 166 x10^3/uL (130-400); RED BLOOD COUNT 3.26 x10^6/uL (4.38-5.82); RED CELL DISTRIBUTION WIDTH 19.8 % (9.4-14.8)
[2018-12-12 07:55] LABS: MD YES
[2018-12-12 07:57] LABS: BAND#(MANUAL) 0.08 x10^3/uL; BANDS%(MANUAL) 1 % (0-7); LYMPH#(MANUAL) 0.77 x10^3/uL (1-3.4); LYMPHS% (MANUAL) 10 % (22-44)
[2018-12-12 07:58] LABS: ANISOCYTOSIS 1+; OVALOCYTES 1+
[2018-12-12 07:59] LABS: <PLATELET ESTIMATE> ADEQUATE; <PLT MORPHOLOGY> NORMAL PLT MORPH; POLYCHROMASIA 1+
[2018-12-12 08:00] LABS: MONOS#(MANUAL) 0.08 x10^3/uL (0.3-2.7); MONOS% (MANUAL) 1 % (2-9); SEG#(MANUAL) 6.78 x10^3/uL (1.8-6.8); SEGS% (MANUAL) 88 % (42-75)
[2018-12-12] MEDS ORDERED: SERTRALINE 100MG TABLET ONE (08:14)
[2018-12-12] MEDS: DOXYCYCLINE 100MG TABLET PO SCH ×2 (08:19→20:02)
[2018-12-12] MEDS: SPIRONOLACTONE 25 MG TABLET PO SCH (08:19)
[2018-12-12] MEDS: SERTRALINE 50MG TABLET PO SCH (08:19)
[2018-12-12 08:20] VITALS: BP 110/63
[2018-12-12] MEDS: FUROSEMIDE 20 MG/2 ML IV SCH (08:20)
[2018-12-12] MEDS: BUDESONIDE 0.5 MG/2 ML INHA NPPB SCH ×2 (09:25→20:47)
[2018-12-12 12:30] VITALS: BP 104/66
[2018-12-12] MEDS: CEFTRIAXONE PMX 1GM/50ML 50 ML IV SCH (17:33)
[2018-12-12] MEDS: RIVAROXABAN 20 MG TABLET PO SCH (17:33)
[2018-12-12 19:34] VITALS: BP 109/65
[2018-12-12] MEDS: ATORVASTATIN 10 MG TABLET PO SCH (20:02)
[2018-12-12] MEDS: DIPHENHYDRAMINE 50 MG CAPSULE PO PRN (23:36)
[2018-12-13] MEDS: ALBUTEROL/IPRATROPIUM 2.5MG/0.5MG, 3 ML NPPB SCH ×2 (02:08→09:00)
[2018-12-13 03:20] VITALS: BP 93/58
[2018-12-13 05:02] LABS: MEAN CORPUSCULAR HEMOGLOBIN 29.5 pg (27.5-34.5); MEAN CORPUSCULAR HGB CONC 30.8 g/dL (33.2-36.2); MEAN CORPUSCULAR VOLUME 95.9 fL (81-97); MEAN PLATELET VOLUME 8.5 fL (7.4-10.4); PLATELET COUNT 149 x10^3/uL (130-400); RED BLOOD COUNT 3.28 x10^6/uL (4.38-5.82); RED CELL DISTRIBUTION WIDTH 19.5 % (9.4-14.8)
[2018-12-13 05:05] LABS: ALBUMIN 3.8 g/dL (3.4-5.0); ANION GAP 10 mmol/L (5-15); CALCIUM 9.1 mg/dL (8.5-10.1); CHLORIDE 104 mmol/L (98-107)
[2018-12-13 05:11] LABS: ALANINE AMINOTRANSFERASE 23 U/L (12-78); ALKALINE PHOSPHATASE 70 U/L (45-117); BILIRUBIN,TOTAL 0.4 mg/dL (0.2-1.0); CREATININE 1.21 mg/dL (0.7-1.3); TOTAL PROTEIN 6.4 g/dL (6.4-8.2)
[2018-12-13 05:34] LABS: BASOPHILS % (AUTO) 0 % (0-1); EOSINOPHILS % (AUTO) 0 % (1-7); LYMPHOCYTES # (AUTO) 0.11 x10^3/uL (1-3.4); LYMPHOCYTES % (AUTO) 2 % (22-44); MD SCAN; MONOCYTES # (AUTO) 0.13 x10^3/uL (0.2-0.8); MONOCYTES % (AUTO) 2 % (2-9); NEUTROPHILS # (AUTO) 6.99 x10^3/uL (1.8-6.8); NEUTROPHILS % (AUTO) 97 % (42-75)
[2018-12-13] MEDS: GUAIFENESIN 200 MG TABLET PO SCH ×2 (06:02→11:12)
[2018-12-13] MEDS: PANTOPROZOLE 40MG TABLET PO SCH (06:02)
[2018-12-13] MEDS: methylPREDNISolone SOD SUCC 125 MG/2 ML IVPush SCH ×2 (06:03→11:12)
[2018-12-13] MEDS ORDERED: SERTRALINE 100MG TABLET ONE (08:39)
[2018-12-13 08:46] VITALS: BP 117/67
[2018-12-13] MEDS: FUROSEMIDE 20 MG/2 ML IV SCH (08:47)
[2018-12-13] MEDS: DOXYCYCLINE 100MG TABLET PO SCH (08:47)
[2018-12-13] MEDS: SERTRALINE 50MG TABLET PO SCH (08:48)
[2018-12-13] MEDS: SPIRONOLACTONE 25 MG TABLET PO SCH (08:48)
[2018-12-13] MEDS: BUDESONIDE 0.5 MG/2 ML INHA NPPB SCH (09:00)
[2018-12-13] MEDS ORDERED: CEFTRIAXONE PMX 1GM/50ML 50 ML IV SCH (09:30)
[2018-12-13] MEDS ORDERED: PANT40TA5 PO (11:49)
[2018-12-13] MEDS ORDERED: PRED10TA PO (11:49)
[2018-12-13 13:23] VITALS: BP 100/60
== END 2018-12-13 14:08 | disposition home or self-care (01) | DRG 291 ==
LOC: ED 14:37 → EDIP 15:30 → 3NE 16:20 → ED 16:20 → 3NE 16:20 → 5SO 17:44
PROVIDERS: ADMIT Internal Medicine; ATTEND Internal Medicine
DX: I11.0 Hypertensive heart disease with heart failure (principal); J96.21 Acute and chronic respiratory failure with hypoxia; D68.69 Other thrombophilia; I50.33 Acute on chronic diastolic (congestive) heart failure; D64.9 Anemia, unspecified; E78.5 Hyperlipidemia, unspecified; I25.10 Atherosclerotic heart disease of native coronary artery without angina pectoris; I25.2 Old myocardial infarction; I27.29 Other secondary pulmonary hypertension; I27.81 Cor pulmonale (chronic); Z95.2 Presence of prosthetic heart valve; I45.81 Long QT syndrome; I48.0 Paroxysmal atrial fibrillation; J43.9 Emphysema, unspecified; N40.0 Benign prostatic hyperplasia without lower urinary tract symptoms; Z82.49 Family history of ischemic heart disease and other diseases of the circulatory system; Z86.711 Personal history of pulmonary embolism; Z87.891 Personal history of nicotine dependence; Z95.1 Presence of aortocoronary bypass graft
CPT/HCPCS: 36415; 71045; 80048; 80053; 82040; 83605; 83735; 83880; 84100; 84145; 84439; 84443; 84484; 85025; 85610; 93005; 93308; 93321; 93325; 94640; G0378; J0696; J7620; J7626; C9113; J1940; J2930; J7512

== ENCOUNTER → 2019-01-01 | Outpatient (CLI) | payer MEDICARE ==
[~2019-01-01] MED LIST changes: +PANT40TA5 PO
[2019-01-01 13:04] LABS: BASOPHILS # (AUTO) 0.06 x10^3/uL (0-0.1); BASOPHILS % (AUTO) 1 % (0-1); EOSINOPHILS % (AUTO) 2 % (1-7); LYMPHOCYTES # (AUTO) 0.65 x10^3/uL (1-3.4); LYMPHOCYTES % (AUTO) 8 % (22-44); MD NO; MEAN CORPUSCULAR HEMOGLOBIN 31.2 pg (27.5-34.5); MEAN CORPUSCULAR HGB CONC 31.6 g/dL (33.2-36.2); MEAN CORPUSCULAR VOLUME 98.7 fL (81-97); MEAN PLATELET VOLUME 9.1 fL (7.4-10.4); MONOCYTES # (AUTO) 0.34 x10^3/uL (0.2-0.8); MONOCYTES % (AUTO) 4 % (2-9); NEUTROPHILS # (AUTO) 7.22 x10^3/uL (1.8-6.8); NEUTROPHILS % (AUTO) 85 % (42-75); PLATELET COUNT 152 x10^3/uL (130-400); RED BLOOD COUNT 2.73 x10^6/uL (4.38-5.82); RED CELL DISTRIBUTION WIDTH 18.1 % (9.4-14.8)
[2019-01-01 13:17] LABS: ALBUMIN 3.7 g/dL (3.4-5.0); ANION GAP 5 mmol/L (5-15); CALCIUM 9.3 mg/dL (8.5-10.1); CHLORIDE 102 mmol/L (98-107)
[2019-01-01 13:31] LABS: % IRON SATURATION 54 % (20-55); ALANINE AMINOTRANSFERASE 36 U/L (12-78); ALKALINE PHOSPHATASE 72 U/L (45-117); BILIRUBIN,TOTAL 0.4 mg/dL (0.2-1.0); CREATININE 1.05 mg/dL (0.7-1.3); IRON LEVEL 207 mcg/dL (65-175); TOTAL IRON BINDING CAPACITY 385 mcg/dL (250-450); TOTAL PROTEIN 6.6 g/dL (6.4-8.2)
== END | disposition home or self-care (01) ==
LOC: CFH 09:31
PROVIDERS: ATTEND Family Medicine
DX: D64.9 Anemia, unspecified (principal); I11.9 Hypertensive heart disease without heart failure
CPT/HCPCS: 36415; 80053; 82728; 83540; 83550; 85025

== ENCOUNTER 2019-01-08 09:40 | Outpatient (CLI) | payer MEDICARE | END 2019-01-08 23:59 | disposition home or self-care (01) | LOC: LAB 09:40 | PROVIDERS: ATTEND Internal Medicine Critical Care Medicine | DX: J69.0 Pneumonitis due to inhalation of food and vomit (principal); J44.0 Chronic obstructive pulmonary disease with (acute) lower respiratory infection | CPT/HCPCS: 87015; 87070; 87077; 87102; 87116; 87186; 87205; 87206 ==

== ENCOUNTER 2019-01-10 10:27 | Inpatient (IN) | payer MEDICARE ==
[~2019-01-10] VITALS: Ht 190.5 cm; Wt 95.4 kg
[2019-01-20 13:28] VITALS: BP 116/71
== END 2019-01-20 19:00 | DRG 871 ==
LOC: ED 11:36 → EDIP 12:13 → 4WST 13:25
PROVIDERS: ADMIT Internal Medicine; ATTEND Internal Medicine
PROC: 30233N1 Transfusion of Nonautologous Red Blood Cells into Peripheral Vein, Percutaneous Approach (ICD-10-PCS; 2019-01-10)
PROC: 0W3P8ZZ Control Bleeding in Gastrointestinal Tract, Via Natural or Artificial Opening Endoscopic (ICD-10-PCS; principal; 2019-01-14)
PROC: 0DJD8ZZ Inspection of Lower Intestinal Tract, Via Natural or Artificial Opening Endoscopic (ICD-10-PCS; 2019-01-14)
PROC: 02HV33Z Insertion of Infusion Device into Superior Vena Cava, Percutaneous Approach (ICD-10-PCS; 2019-01-19)
PROC: B548ZZA Ultrasonography of Superior Vena Cava, Guidance (ICD-10-PCS; 2019-01-19)
PROC: B5181ZA Fluoroscopy of Superior Vena Cava using Low Osmolar Contrast, Guidance (ICD-10-PCS; 2019-01-19)
DX: A41.01 Sepsis due to Methicillin susceptible Staphylococcus aureus (principal); K31.811 Angiodysplasia of stomach and duodenum with bleeding; J96.21 Acute and chronic respiratory failure with hypoxia; I21.A1 Myocardial infarction type 2; J18.9 Pneumonia, unspecified organism; K57.33 Diverticulitis of large intestine without perforation or abscess with bleeding; I50.32 Chronic diastolic (congestive) heart failure; D68.9 Coagulation defect, unspecified; N17.9 Acute kidney failure, unspecified; D62 Acute posthemorrhagic anemia; D68.69 Other thrombophilia; J43.9 Emphysema, unspecified; I48.0 Paroxysmal atrial fibrillation; I35.0 Nonrheumatic aortic (valve) stenosis; N40.0 Benign prostatic hyperplasia without lower urinary tract symptoms; E78.5 Hyperlipidemia, unspecified; T50.2X5A Adverse effect of carbonic-anhydrase inhibitors, benzothiadiazides and other diuretics, initial encounter; T38.0X5A Adverse effect of glucocorticoids and synthetic analogues, initial encounter; B95.62 Methicillin resistant Staphylococcus aureus infection as the cause of diseases classified elsewhere; I34.0 Nonrheumatic mitral (valve) insufficiency; I27.20 Pulmonary hypertension, unspecified; I25.5 Ischemic cardiomyopathy; I25.10 Atherosclerotic heart disease of native coronary artery without angina pectoris; I11.0 Hypertensive heart disease with heart failure; F41.9 Anxiety disorder, unspecified; Z79.01 Long term (current) use of anticoagulants; Z99.81 Dependence on supplemental oxygen; Z95.2 Presence of prosthetic heart valve; Z87.891 Personal history of nicotine dependence; Z86.711 Personal history of pulmonary embolism; Z82.49 Family history of ischemic heart disease and other diseases of the circulatory system; Z95.1 Presence of aortocoronary bypass graft; Z90.49 Acquired absence of other specified parts of digestive tract; Y92.89 Other specified places as the place of occurrence of the external cause
CPT/HCPCS: 36415; 36430; 36573; 36600; 71045; 80048; 80053; 80202; 81001; 82040; 82803; 83540; 83550; 83605; 83735; 83880; 84100; 84145; 84484; 85014; 85018; 85025; 85610; 86850; 86900; 86923; 87015; 87040; 87070; 87077; 87086; 87102; 87116; 87147; 87186; 87205; 87206; 93005; 93306; 93312; 93325; 94640; 99291; G0378; J0690; J0696; J1750; J1940; J2704; J3370; J3465; J7060; J7620; J7626; C1751; J2270; J2930; J7030; J7050; J7512; P9016; Q0163

== ENCOUNTER 2019-01-24 16:19 | Inpatient (IN) | payer MEDICARE ==
[~2019-01-24] VITALS: Ht 190.5 cm; Wt 91.3 kg
[~2019-01-24 16:19] MED LIST changes: +ACID1TAB7 PO; +APIX5TAB PO; +BUSP5TAB2 PO; +DIGO125T PO; +IPRA3AMP30 PO; +OMEP-110 PO; +POLY17PO5 PO; +PRED20TA PO; +SERT50TA PO
--- NOTE | 2019-01-24 16:35 | NUR ---
PT TO ED FOR SOB AND BILAT PEDAL EDEMA X3 DAYS SINCE BEING DC FROM [facility] FOR FUNGAL PNA. PT CONNECTED TO ALL MONITORS. VSS. DENIES CP. PT ARRIVES ON 6L NC AT 100%. O2 LOWERED TO 4L NC WITH SAT AT 98%. PT ABLE TO SPEAK IN COMPLETE SENTENCES WTIH PURSED LIP BREATHING IN BETWEEN. PT RECEIVED 2 ALBUTEROL TREATMENTS AT [facility] AND 1 DUONEB EN ROUTE WITH "LESS TIGHTNESS" PER PT. 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 AWAITING EDMD ASSESSMENT AND ORDERS.
[2019-01-24] MEDS ORDERED: CEFA1VIA2 IA (16:49)
[2019-01-24] MEDS ORDERED: CASP50VI2 IV (16:49)
[2019-01-24] MEDS ORDERED: DIPH25CA61 PO (16:49)
[2019-01-24] MEDS ORDERED: SODIUM CHLORIDE FLUSH 10ML SYR IVF ONE (17:00)
--- NOTE | 2019-01-24 17:20 | NUR ---
LAB TO BS TO DRAW BC X2. PT RESTING IN ROOM. VSS ON 4LNC. NO NEEDS EXPRESSED. AWAITING RESUTLS.
[2019-01-24 17:32] LABS: INTERNATIONAL NORMALIZED RATIO 1.19 (0.93-1.1); PROTHROMBIN TIME 12.4 Seconds (9.6-11.5)
[2019-01-24 17:36] LABS: ALANINE AMINOTRANSFERASE 15 U/L (12-78); ALBUMIN 2.7 g/dL (3.4-5.0); ANION GAP 6 mmol/L (5-15); CALCIUM 7.7 mg/dL (8.5-10.1); CHLORIDE 102 mmol/L (98-107); CREATININE 0.94 mg/dL (0.7-1.3)
[2019-01-24 17:41] LABS: ALKALINE PHOSPHATASE 85 U/L (45-117); BILIRUBIN,TOTAL 0.3 mg/dL (0.2-1.0); TOTAL PROTEIN 5.7 g/dL (6.4-8.2)
[2019-01-24 17:47] LABS: TROPONIN I 0.158 ng/mL (0.000-0.045)
[2019-01-24 17:57] LABS: BASOPHILS % (AUTO) 0 % (0-1); EOSINOPHILS # (AUTO) 0.14 x10^3/uL (0-0.4); EOSINOPHILS % (AUTO) 1 % (1-7); LYMPHOCYTES # (AUTO) 0.08 x10^3/uL (1-3.4); LYMPHOCYTES % (AUTO) 1 % (22-44); MD MORPH REVIEW ONLY; MEAN CORPUSCULAR HEMOGLOBIN 29.4 pg (27.5-34.5); MEAN CORPUSCULAR HGB CONC 31.2 g/dL (33.2-36.2); MEAN CORPUSCULAR VOLUME 94.3 fL (81-97); MEAN PLATELET VOLUME 9.2 fL (7.4-10.4); MONOCYTES # (AUTO) 0.16 x10^3/uL (0.2-0.8); MONOCYTES % (AUTO) 2 % (2-9); NEUTROPHILS # (AUTO) 9.51 x10^3/uL (1.8-6.8); NEUTROPHILS % (AUTO) 96 % (42-75); PLATELET COUNT 106 x10^3/uL (130-400); RED BLOOD COUNT 2.45 x10^6/uL (4.38-5.82); RED CELL DISTRIBUTION WIDTH 23.4 % (9.4-14.8)
[2019-01-24 17:58] LABS: ANISOCYTOSIS 1+; MICROCYTOSIS 1+; POLYCHROMASIA 1+
[2019-01-24 17:59] LABS: <PLATELET ESTIMATE> DECREASED; <PLT MORPHOLOGY> NORMAL PLT MORPH; OVALOCYTES 1+
[2019-01-24] MEDS ORDERED: FUROSEMIDE 40 MG/4 ML IV ONE (18:00)
[2019-01-24] MEDS ORDERED: PHARMACOKINETIC CONSULTATION MC ONE ×2 (18:00→22:30)
[2019-01-24] MEDS ORDERED: VANCOMYCIN 1,900 MG in SODIUM CHLORIDE 0.9% 250 ML IV ONE (18:00)
[2019-01-24] MEDS ORDERED: MAGNESIUM SULFATE PMX 2GM/50ML 50 ML IV ONE ×2 (18:00→22:00)
[2019-01-24] MEDS ORDERED: PIPERACILLIN/TAZO/PMX 3.375GM 50 ML IVPB ONE (18:00)
[2019-01-24] MEDS ORDERED: VANCOMYCIN PER PHARMACY MC ONE (18:00)
[2019-01-24] MEDS ORDERED: FUROSEMIDE 40 MG/4 ML ONE (18:14)
[2019-01-24] MEDS ORDERED: PIPERACILLIN/TAZO/PMX 3.375GM 50 ML ONE (18:14)
--- NOTE | 2019-01-24 18:55 | NUR ---
Report to KHADIJAH Soriano.
[2019-01-24 19:39] VITALS: BP 96/56
[2019-01-24 19:56] VITALS: BP 93/51
[2019-01-24 20:18] VITALS: BP 101/66
[2019-01-24] MEDS ORDERED: ACETAMINOPHEN 325 MG TABLET PO PRN (20:30)
[2019-01-24] MEDS ORDERED: hydrALAzine 20 MG/ML, 1ML IVPush PRN (20:30)
[2019-01-24] MEDS ORDERED: ONDANSETRON ODT 4 MG PO PRN (20:30)
[2019-01-24 21:22] VITALS: BP 107/67
[2019-01-24] MEDS ORDERED: PHARMACOKINETIC MONITORING MC PRN (22:30)
[2019-01-24 22:32] VITALS: BP 117/66
[2019-01-24] MEDS: DIPHENHYDRAMINE 25 MG CAPSULE PO SCH (22:34)
[2019-01-24] MEDS: BUSPIRONE 5 MG TABLET PO SCH (22:34)
[2019-01-24] MEDS: OMEPRAZOLE 20 MG CAPSULE.DR PO SCH (22:35)
[2019-01-24] MEDS: FERROUS SULFATE 325 MG TABLET PO SCH (22:35)
[2019-01-24] MEDS: ATORVASTATIN 10 MG TABLET PO SCH (22:35)
[2019-01-24 23:52] LABS: TROPONIN I 0.153 ng/mL (0.000-0.045)
[2019-01-25] MEDS ORDERED: VANCOMYCIN PER PHARMACY MC PRN
[2019-01-25] MEDS: VANCOMYCIN 1,900 MG in SODIUM CHLORIDE 0.9% 250 ML IV SCH (00:13)
[2019-01-25 01:47] VITALS: BP 109/68
[2019-01-25] MEDS: PIPERACILLIN/TAZO/PMX 3.375GM 50 ML IV SCH ×3 (02:25→18:06)
[2019-01-25] MEDS: OMEPRAZOLE 20 MG CAPSULE.DR PO SCH ×2 (05:54→18:05)
[2019-01-25 06:09] LABS: ANION GAP 6 mmol/L (5-15); CALCIUM 8.3 mg/dL (8.5-10.1); CHLORIDE 102 mmol/L (98-107)
[2019-01-25 06:12] LABS: MEAN CORPUSCULAR HEMOGLOBIN 29.9 pg (27.5-34.5); MEAN CORPUSCULAR HGB CONC 31.8 g/dL (33.2-36.2); MEAN CORPUSCULAR VOLUME 94.2 fL (81-97); MEAN PLATELET VOLUME 9.2 fL (7.4-10.4); PLATELET COUNT 108 x10^3/uL (130-400); RED BLOOD COUNT 2.61 x10^6/uL (4.38-5.82); RED CELL DISTRIBUTION WIDTH 22.7 % (9.4-14.8)
[2019-01-25 06:15] LABS: CREATININE 0.99 mg/dL (0.7-1.3); TROPONIN I 0.155 ng/mL (0.000-0.045)
[2019-01-25] MEDS: ALBUTEROL/IPRATROPIUM 2.5MG/0.5MG, 3 ML NPPB SCH ×4 (07:00→18:28)
[2019-01-25 07:21] LABS: BASOPHILS % (AUTO) 0 % (0-1); EOSINOPHILS # (AUTO) 0.15 x10^3/uL (0-0.4); EOSINOPHILS % (AUTO) 2 % (1-7); LYMPHOCYTES # (AUTO) 0.28 x10^3/uL (1-3.4); LYMPHOCYTES % (AUTO) 3 % (22-44); MD SCAN; MONOCYTES # (AUTO) 0.55 x10^3/uL (0.2-0.8); MONOCYTES % (AUTO) 6 % (2-9); NEUTROPHILS # (AUTO) 8.01 x10^3/uL (1.8-6.8); NEUTROPHILS % (AUTO) 89 % (42-75)
[2019-01-25 07:23] VITALS: BP 105/63
[2019-01-25] MEDS ORDERED: POTASSIUM CHLORIDE 20 MEQ PACKET PO SCH (09:00)
[2019-01-25] MEDS: BUDESONIDE 0.5 MG/2 ML INHA NPPB SCH ×2 (09:00→18:28)
[2019-01-25] MEDS ORDERED: CASPOFUNGIN 50 MG IV SCH (09:00)
[2019-01-25] MEDS ORDERED: BUSPIRONE 10 MG TABLET ONE (09:23)
[2019-01-25] MEDS: DIGOXIN 0.125 MG TABLET PO SCH (09:40)
[2019-01-25] MEDS: CHOLECALCIFEROL 1,000 UNIT TABLET PO SCH (09:40)
[2019-01-25] MEDS: SERTRALINE 50MG TABLET PO SCH (09:40)
[2019-01-25] MEDS: FERROUS SULFATE 325 MG TABLET PO SCH (09:40)
[2019-01-25] MEDS: SPIRONOLACTONE 25 MG TABLET PO SCH (09:40)
[2019-01-25] MEDS: BUSPIRONE 5 MG TABLET PO SCH ×2 (09:41→21:25)
[2019-01-25] MEDS: ASCORBIC ACID 500 MG TABLET PO SCH (09:41)
[2019-01-25] MEDS: FUROSEMIDE 40 MG/4 ML IV SCH (11:06)
[2019-01-25 13:33] VITALS: BP 95/57
[2019-01-25] MEDS ORDERED: CASPOFUNGIN 50 MG in SODIUM CHLORIDE 0.9% 250 ML IVPB SCH (15:30)
[2019-01-25 20:18] VITALS: BP 112/75
[2019-01-25] MEDS: ATORVASTATIN 10 MG TABLET PO SCH (21:25)
[2019-01-25] MEDS: DIPHENHYDRAMINE 25 MG CAPSULE PO SCH (21:25)
[2019-01-26] MEDS: VANCOMYCIN 1,900 MG in SODIUM CHLORIDE 0.9% 250 ML IV SCH (00:17)
[2019-01-26 01:45] VITALS: BP 108/62
[2019-01-26] MEDS: PIPERACILLIN/TAZO/PMX 3.375GM 50 ML IV SCH (04:13)
[2019-01-26] MEDS: OMEPRAZOLE 20 MG CAPSULE.DR PO SCH ×2 (05:26→17:32)
[2019-01-26 05:41] LABS: MEAN CORPUSCULAR HGB CONC 31.7 g/dL (33.2-36.2); MEAN CORPUSCULAR VOLUME 94.5 fL (81-97); MEAN PLATELET VOLUME 9.2 fL (7.4-10.4); PLATELET COUNT 102 x10^3/uL (130-400); RED BLOOD COUNT 2.69 x10^6/uL (4.38-5.82); RED CELL DISTRIBUTION WIDTH 24.5 % (9.4-14.8)
[2019-01-26 05:43] LABS: ALBUMIN 2.7 g/dL (3.4-5.0); ANION GAP 4 mmol/L (5-15); CHLORIDE 101 mmol/L (98-107)
[2019-01-26 05:47] LABS: ALANINE AMINOTRANSFERASE 10 U/L (12-78); ALKALINE PHOSPHATASE 70 U/L (45-117); BILIRUBIN,TOTAL 0.5 mg/dL (0.2-1.0); CREATININE 0.93 mg/dL (0.7-1.3); TOTAL PROTEIN 5.7 g/dL (6.4-8.2)
[2019-01-26 06:38] LABS: BASOPHILS # (AUTO) 0.07 x10^3/uL (0-0.1); BASOPHILS % (AUTO) 1 % (0-1); EOSINOPHILS # (AUTO) 0.05 x10^3/uL (0-0.4); EOSINOPHILS % (AUTO) 1 % (1-7); LYMPHOCYTES # (AUTO) 0.34 x10^3/uL (1-3.4); LYMPHOCYTES % (AUTO) 4 % (22-44); MD SCAN; MONOCYTES # (AUTO) 0.48 x10^3/uL (0.2-0.8); MONOCYTES % (AUTO) 6 % (2-9); NEUTROPHILS # (AUTO) 7.29 x10^3/uL (1.8-6.8); NEUTROPHILS % (AUTO) 89 % (42-75)
[2019-01-26 07:04] VITALS: BP 117/72
[2019-01-26] MEDS: ALBUTEROL/IPRATROPIUM 2.5MG/0.5MG, 3 ML NPPB SCH ×4 (07:10→19:31)
[2019-01-26] MEDS: BUDESONIDE 0.5 MG/2 ML INHA NPPB SCH ×2 (07:10→19:31)
[2019-01-26] MEDS ORDERED: CEFAZOLIN 1,000 MG IM SCH (09:00)
[2019-01-26] MEDS: BUSPIRONE 5 MG TABLET PO SCH ×2 (09:00→20:37)
[2019-01-26] MEDS ORDERED: VORICONAZOLE 200 MG IV SCH (09:00)
[2019-01-26] MEDS ORDERED: BUSPIRONE 10 MG TABLET ONE ×2 (09:19→20:21)
[2019-01-26] MEDS: FERROUS SULFATE 325 MG TABLET PO SCH (09:30)
[2019-01-26] MEDS: CHOLECALCIFEROL 1,000 UNIT TABLET PO SCH (09:30)
[2019-01-26] MEDS: ASCORBIC ACID 500 MG TABLET PO SCH (09:30)
[2019-01-26] MEDS: SERTRALINE 50MG TABLET PO SCH (09:31)
[2019-01-26] MEDS: SPIRONOLACTONE 25 MG TABLET PO SCH (09:31)
[2019-01-26] MEDS: DIGOXIN 0.125 MG TABLET PO SCH (09:32)
[2019-01-26] MEDS: FUROSEMIDE 40 MG/4 ML IV SCH (09:37)
[2019-01-26 11:07] LABS: OCCULT BLOOD POSITIVE (NEGATIVE)
[2019-01-26] MEDS: CEFAZOLIN PMX 2GM/50ML 50 ML IVPB SCH ×2 (12:11→20:39)
[2019-01-26] MEDS: APIXABAN 5 MG TABLET PO SCH ×2 (12:11→20:35)
[2019-01-26 13:22] VITALS: BP 107/66
[2019-01-26] MEDS: VORICONAZOLE IV SCH ×2 (14:07→23:24)
[2019-01-26] MEDS: DEXTROSE 5% IV SCH ×2 (14:07→23:24)
[2019-01-26 15:21] LABS: BASOPHILS % (AUTO) 0 % (0-1); EOSINOPHILS # (AUTO) 0.19 x10^3/uL (0-0.4); EOSINOPHILS % (AUTO) 2 % (1-7); LYMPHOCYTES # (AUTO) 0.25 x10^3/uL (1-3.4); LYMPHOCYTES % (AUTO) 3 % (22-44); MD SCAN; MEAN CORPUSCULAR HEMOGLOBIN 30.6 pg (27.5-34.5); MEAN CORPUSCULAR VOLUME 95.5 fL (81-97); MEAN PLATELET VOLUME 8.9 fL (7.4-10.4); MONOCYTES # (AUTO) 0.21 x10^3/uL (0.2-0.8); MONOCYTES % (AUTO) 2 % (2-9); NEUTROPHILS # (AUTO) 8.88 x10^3/uL (1.8-6.8); NEUTROPHILS % (AUTO) 93 % (42-75); PLATELET COUNT 113 x10^3/uL (130-400); RED BLOOD COUNT 2.64 x10^6/uL (4.38-5.82); RED CELL DISTRIBUTION WIDTH 23.6 % (9.4-14.8)
[2019-01-26 18:49] VITALS: BP 113/72
[2019-01-26] MEDS: DIPHENHYDRAMINE 25 MG CAPSULE PO SCH (20:34)
[2019-01-26] MEDS: ATORVASTATIN 10 MG TABLET PO SCH (20:35)
[2019-01-27 01:22] VITALS: BP 112/71
[2019-01-27] MEDS: CEFAZOLIN PMX 2GM/50ML 50 ML IVPB SCH ×3 (03:41→20:00)
[2019-01-27] MEDS: OMEPRAZOLE 20 MG CAPSULE.DR PO SCH ×2 (05:13→16:19)
[2019-01-27 05:46] LABS: ALANINE AMINOTRANSFERASE 12 U/L (12-78); ALBUMIN 2.7 g/dL (3.4-5.0); ANION GAP 5 mmol/L (5-15); CALCIUM 8.2 mg/dL (8.5-10.1); CHLORIDE 101 mmol/L (98-107); CREATININE 1.03 mg/dL (0.7-1.3)
[2019-01-27 05:47] LABS: MEAN CORPUSCULAR HEMOGLOBIN 30.1 pg (27.5-34.5); MEAN CORPUSCULAR HGB CONC 31.7 g/dL (33.2-36.2); MEAN CORPUSCULAR VOLUME 95.1 fL (81-97); MEAN PLATELET VOLUME 9.1 fL (7.4-10.4); PLATELET COUNT 101 x10^3/uL (130-400); RED BLOOD COUNT 2.61 x10^6/uL (4.38-5.82); RED CELL DISTRIBUTION WIDTH 23.6 % (9.4-14.8)
[2019-01-27 05:48] LABS: ALKALINE PHOSPHATASE 69 U/L (45-117); BILIRUBIN,TOTAL 0.3 mg/dL (0.2-1.0); TOTAL PROTEIN 5.6 g/dL (6.4-8.2)
[2019-01-27 06:09] LABS: MD YES
[2019-01-27 06:11] LABS: BAND#(MANUAL) 0.22 x10^3/uL; BANDS%(MANUAL) 3 % (0-7); LYMPH#(MANUAL) 0.43 x10^3/uL (1-3.4); LYMPHS% (MANUAL) 6 % (22-44); MONOS#(MANUAL) 0.29 x10^3/uL (0.3-2.7); MONOS% (MANUAL) 4 % (2-9); SEG#(MANUAL) 6.26 x10^3/uL (1.8-6.8); SEGS% (MANUAL) 87 % (42-75)
[2019-01-27 06:13] LABS: ANISOCYTOSIS 2+; HYPOCHROMIA 1+; OVALOCYTES 1+
[2019-01-27 06:18] LABS: <PLATELET ESTIMATE> DECREASED; <PLT MORPHOLOGY> NORMAL PLT MORPH
[2019-01-27] MEDS: ALBUTEROL/IPRATROPIUM 2.5MG/0.5MG, 3 ML NPPB SCH ×4 (06:27→19:10)
[2019-01-27 07:11] VITALS: BP 116/66
[2019-01-27] MEDS ORDERED: BUSPIRONE 10 MG TABLET ONE (08:45)
[2019-01-27] MEDS: CHOLECALCIFEROL 1,000 UNIT TABLET PO SCH (08:50)
[2019-01-27] MEDS: BUSPIRONE 5 MG TABLET PO SCH ×2 (08:51→20:03)
[2019-01-27] MEDS: FUROSEMIDE 40 MG/4 ML IV SCH (08:52)
[2019-01-27] MEDS: ASCORBIC ACID 500 MG TABLET PO SCH (08:52)
[2019-01-27] MEDS: SERTRALINE 50MG TABLET PO SCH (08:53)
[2019-01-27] MEDS: SPIRONOLACTONE 25 MG TABLET PO SCH (08:53)
[2019-01-27] MEDS: APIXABAN 5 MG TABLET PO SCH ×2 (08:54→20:03)
[2019-01-27] MEDS: FERROUS SULFATE 325 MG TABLET PO SCH (08:55)
[2019-01-27] MEDS: DIGOXIN 0.125 MG TABLET PO SCH (08:55)
[2019-01-27] MEDS: BUDESONIDE 0.5 MG/2 ML INHA NPPB SCH ×2 (09:00→19:10)
[2019-01-27] MEDS: VORICONAZOLE 400 MG in DEXTROSE 5% 100 ML IV SCH ×2 (10:50→23:18)
[2019-01-27 12:28] VITALS: BP 115/64
[2019-01-27 18:30] LABS: BASOPHILS # (AUTO) 0.02 x10^3/uL (0-0.1); BASOPHILS % (AUTO) 0 % (0-1); EOSINOPHILS # (AUTO) 0.22 x10^3/uL (0-0.4); EOSINOPHILS % (AUTO) 2 % (1-7); LYMPHOCYTES # (AUTO) 0.27 x10^3/uL (1-3.4); LYMPHOCYTES % (AUTO) 3 % (22-44); MD MORPH REVIEW ONLY; MEAN CORPUSCULAR HEMOGLOBIN 30.3 pg (27.5-34.5); MEAN CORPUSCULAR HGB CONC 31.7 g/dL (33.2-36.2); MEAN CORPUSCULAR VOLUME 95.4 fL (81-97); MONOCYTES # (AUTO) 0.35 x10^3/uL (0.2-0.8); MONOCYTES % (AUTO) 4 % (2-9); NEUTROPHILS # (AUTO) 8.24 x10^3/uL (1.8-6.8); NEUTROPHILS % (AUTO) 91 % (42-75); PLATELET COUNT 139 x10^3/uL (130-400); RED BLOOD COUNT 2.84 x10^6/uL (4.38-5.82); RED CELL DISTRIBUTION WIDTH 23.8 % (9.4-14.8)
[2019-01-27 18:31] LABS: ANISOCYTOSIS 2+
[2019-01-27 18:32] LABS: <PLATELET ESTIMATE> ADEQUATE; <PLT MORPHOLOGY> NORMAL PLT MORPH; OVALOCYTES 1+
[2019-01-27 19:40] VITALS: BP 117/77
[2019-01-27] MEDS: DIPHENHYDRAMINE 25 MG CAPSULE PO SCH (20:03)
[2019-01-27] MEDS: ATORVASTATIN 10 MG TABLET PO SCH (20:03)
[2019-01-28 01:17] VITALS: BP 110/67
[2019-01-28] MEDS: CEFAZOLIN PMX 2GM/50ML 50 ML IVPB SCH ×3 (04:13→21:30)
[2019-01-28 05:48] LABS: CHLORIDE 102 mmol/L (98-107); MEAN CORPUSCULAR HEMOGLOBIN 30.1 pg (27.5-34.5); MEAN CORPUSCULAR HGB CONC 31.8 g/dL (33.2-36.2); MEAN CORPUSCULAR VOLUME 94.7 fL (81-97); MEAN PLATELET VOLUME 8.9 fL (7.4-10.4); PLATELET COUNT 111 x10^3/uL (130-400); RED BLOOD COUNT 2.72 x10^6/uL (4.38-5.82); RED CELL DISTRIBUTION WIDTH 23.4 % (9.4-14.8)
[2019-01-28 05:53] LABS: ALANINE AMINOTRANSFERASE 11 U/L (12-78); ALBUMIN 2.8 g/dL (3.4-5.0); ALKALINE PHOSPHATASE 69 U/L (45-117); ANION GAP 4 mmol/L (5-15); BILIRUBIN,TOTAL 0.2 mg/dL (0.2-1.0); CALCIUM 8.6 mg/dL (8.5-10.1); CREATININE 1.25 mg/dL (0.7-1.3); TOTAL PROTEIN 5.6 g/dL (6.4-8.2)
[2019-01-28] MEDS: ALBUTEROL/IPRATROPIUM 2.5MG/0.5MG, 3 ML NPPB SCH ×4 (06:30→18:44)
[2019-01-28] MEDS: BUDESONIDE 0.5 MG/2 ML INHA NPPB SCH ×2 (06:30→18:45)
[2019-01-28 07:00] LABS: BASOPHILS # (AUTO) 0.02 x10^3/uL (0-0.1); BASOPHILS % (AUTO) 0 % (0-1); EOSINOPHILS # (AUTO) 0.04 x10^3/uL (0-0.4); EOSINOPHILS % (AUTO) 1 % (1-7); LYMPHOCYTES # (AUTO) 0.42 x10^3/uL (1-3.4); LYMPHOCYTES % (AUTO) 6 % (22-44); MD SCAN; MONOCYTES # (AUTO) 0.43 x10^3/uL (0.2-0.8); MONOCYTES % (AUTO) 7 % (2-9); NEUTROPHILS # (AUTO) 5.72 x10^3/uL (1.8-6.8); NEUTROPHILS % (AUTO) 86 % (42-75)
[2019-01-28] MEDS ORDERED: FENTANYL PF 100 MCG/2ML IV PRN (08:00)
[2019-01-28] MEDS ORDERED: LABETALOL 5MG/ML, 20ML IV PRN (08:00)
[2019-01-28] MEDS ORDERED: METOPROLOL 1 MG/ML, 5ML IV PRN (08:00)
[2019-01-28] MEDS ORDERED: hydrALAzine 20 MG/ML, 1ML IV PRN (08:00)
[2019-01-28] MEDS ORDERED: PROPOFOL 10 MG/ML, 20ML ONE (08:05)
[2019-01-28] MEDS: APIXABAN 5 MG TABLET PO SCH ×2 (09:00→21:34)
[2019-01-28] MEDS: SERTRALINE 50MG TABLET PO SCH (09:00)
[2019-01-28] MEDS: OMEPRAZOLE 20 MG CAPSULE.DR PO SCH ×2 (09:00→16:29)
[2019-01-28 09:18] VITALS: BP 95/58
[2019-01-28] MEDS ORDERED: SERTRALINE 100MG TABLET ONE (09:59)
[2019-01-28] MEDS: ASCORBIC ACID 500 MG TABLET PO SCH (10:02)
[2019-01-28] MEDS: CHOLECALCIFEROL 1,000 UNIT TABLET PO SCH (10:04)
[2019-01-28] MEDS: DIGOXIN 0.125 MG TABLET PO SCH (10:04)
[2019-01-28] MEDS: BUSPIRONE 5 MG TABLET PO SCH ×2 (10:05→21:34)
[2019-01-28] MEDS: FERROUS SULFATE 325 MG TABLET PO SCH (10:05)
[2019-01-28] MEDS: SPIRONOLACTONE 25 MG TABLET PO SCH (10:06)
[2019-01-28] MEDS: FUROSEMIDE 40 MG/4 ML IV SCH (10:07)
[2019-01-28 10:33] VITALS: BP 102/63
[2019-01-28] MEDS: VORICONAZOLE 400 MG in DEXTROSE 5% 100 ML IV SCH (11:56)
[2019-01-28 14:59] VITALS: BP 96/60
[2019-01-28 19:26] VITALS: BP 119/68
[2019-01-28] MEDS: ATORVASTATIN 10 MG TABLET PO SCH (21:34)
[2019-01-28] MEDS: DIPHENHYDRAMINE 25 MG CAPSULE PO SCH (21:34)
[2019-01-29] MEDS: VORICONAZOLE 400 MG in DEXTROSE 5% 100 ML IV SCH ×2 (00:17→15:25)
[2019-01-29 00:53] VITALS: BP 102/60
[2019-01-29] MEDS: CEFAZOLIN PMX 2GM/50ML 50 ML IVPB SCH ×3 (05:23→21:28)
[2019-01-29] MEDS: OMEPRAZOLE 20 MG CAPSULE.DR PO SCH ×2 (05:31→16:27)
[2019-01-29 05:50] LABS: MEAN CORPUSCULAR HEMOGLOBIN 29.8 pg (27.5-34.5); MEAN CORPUSCULAR HGB CONC 31.6 g/dL (33.2-36.2); MEAN CORPUSCULAR VOLUME 94.4 fL (81-97); MEAN PLATELET VOLUME 8.6 fL (7.4-10.4); PLATELET COUNT 103 x10^3/uL (130-400); RED BLOOD COUNT 2.72 x10^6/uL (4.38-5.82); RED CELL DISTRIBUTION WIDTH 22.8 % (9.4-14.8)
[2019-01-29 05:52] LABS: CHLORIDE 103 mmol/L (98-107)
[2019-01-29 06:05] LABS: ALANINE AMINOTRANSFERASE 10 U/L (12-78); ALBUMIN 2.9 g/dL (3.4-5.0); ALKALINE PHOSPHATASE 69 U/L (45-117); ANION GAP 7 mmol/L (5-15); BILIRUBIN,TOTAL 0.3 mg/dL (0.2-1.0); CALCIUM 8.5 mg/dL (8.5-10.1); CREATININE 1.11 mg/dL (0.7-1.3); TOTAL PROTEIN 5.7 g/dL (6.4-8.2)
[2019-01-29 06:21] LABS: BASOPHILS # (AUTO) 0.03 x10^3/uL (0-0.1); BASOPHILS % (AUTO) 1 % (0-1); EOSINOPHILS # (AUTO) 0.07 x10^3/uL (0-0.4); EOSINOPHILS % (AUTO) 1 % (1-7); LYMPHOCYTES # (AUTO) 0.32 x10^3/uL (1-3.4); LYMPHOCYTES % (AUTO) 5 % (22-44); MD MORPH REVIEW ONLY; MONOCYTES # (AUTO) 0.35 x10^3/uL (0.2-0.8); MONOCYTES % (AUTO) 6 % (2-9); NEUTROPHILS # (AUTO) 5.33 x10^3/uL (1.8-6.8); NEUTROPHILS % (AUTO) 87 % (42-75)
[2019-01-29 06:22] LABS: ANISOCYTOSIS 1+; OVALOCYTES 1+; POLYCHROMASIA 1+
[2019-01-29 06:23] LABS: <PLATELET ESTIMATE> DECREASED; TEAR DROPS 1+
[2019-01-29 06:24] LABS: <PLT MORPHOLOGY> NORMAL PLT MORPH
[2019-01-29 07:18] VITALS: BP 99/65
[2019-01-29] MEDS: ALBUTEROL/IPRATROPIUM 2.5MG/0.5MG, 3 ML NPPB SCH ×4 (08:01→19:12)
[2019-01-29] MEDS: BUDESONIDE 0.5 MG/2 ML INHA NPPB SCH ×2 (08:01→19:12)
[2019-01-29] MEDS ORDERED: SERTRALINE 100MG TABLET ONE (08:47)
[2019-01-29] MEDS: SERTRALINE 50MG TABLET PO SCH (09:00)
[2019-01-29] MEDS: ASCORBIC ACID 500 MG TABLET PO SCH (09:01)
[2019-01-29] MEDS: SPIRONOLACTONE 25 MG TABLET PO SCH (09:02)
[2019-01-29] MEDS: FERROUS SULFATE 325 MG TABLET PO SCH (09:02)
[2019-01-29] MEDS: DIGOXIN 0.125 MG TABLET PO SCH (09:03)
[2019-01-29] MEDS: CHOLECALCIFEROL 1,000 UNIT TABLET PO SCH (09:03)
[2019-01-29] MEDS: BUSPIRONE 5 MG TABLET PO SCH ×2 (09:03→21:28)
[2019-01-29] MEDS: APIXABAN 5 MG TABLET PO SCH ×2 (09:03→21:28)
[2019-01-29] MEDS: FUROSEMIDE 40 MG/4 ML IV SCH (09:04)
[2019-01-29 15:58] VITALS: BP 108/61
[2019-01-29 19:07] VITALS: BP 129/73
[2019-01-29] MEDS: DIPHENHYDRAMINE 25 MG CAPSULE PO SCH (21:28)
[2019-01-29] MEDS: ATORVASTATIN 10 MG TABLET PO SCH (21:28)
[2019-01-30 01:14] VITALS: BP 105/67
[2019-01-30] MEDS: VORICONAZOLE 400 MG in DEXTROSE 5% 100 ML IV SCH ×2 (03:36→16:32)
[2019-01-30 04:09] LABS: MEAN CORPUSCULAR HEMOGLOBIN 30.2 pg (27.5-34.5); MEAN CORPUSCULAR HGB CONC 31.4 g/dL (33.2-36.2); MEAN CORPUSCULAR VOLUME 96.1 fL (81-97); MEAN PLATELET VOLUME 9.1 fL (7.4-10.4); PLATELET COUNT 114 x10^3/uL (130-400); RED BLOOD COUNT 2.85 x10^6/uL (4.38-5.82); RED CELL DISTRIBUTION WIDTH 22.8 % (9.4-14.8)
[2019-01-30 04:18] LABS: ALANINE AMINOTRANSFERASE 10 U/L (12-78); ANION GAP 6 mmol/L (5-15); CALCIUM 8.4 mg/dL (8.5-10.1); CHLORIDE 103 mmol/L (98-107); CREATININE 1.29 mg/dL (0.7-1.3)
[2019-01-30 04:20] LABS: ALKALINE PHOSPHATASE 72 U/L (45-117); BILIRUBIN,TOTAL 0.2 mg/dL (0.2-1.0)
[2019-01-30 05:00] LABS: BASOPHILS # (AUTO) 0.02 x10^3/uL (0-0.1); BASOPHILS % (AUTO) 0 % (0-1); EOSINOPHILS # (AUTO) 0.16 x10^3/uL (0-0.4); EOSINOPHILS % (AUTO) 3 % (1-7); LYMPHOCYTES # (AUTO) 0.42 x10^3/uL (1-3.4); LYMPHOCYTES % (AUTO) 7 % (22-44); MD MORPH REVIEW ONLY; MONOCYTES % (AUTO) 6 % (2-9); NEUTROPHILS # (AUTO) 5.45 x10^3/uL (1.8-6.8); NEUTROPHILS % (AUTO) 85 % (42-75)
[2019-01-30 05:01] LABS: ANISOCYTOSIS 1+; POLYCHROMASIA 1+
[2019-01-30 05:02] LABS: <PLATELET ESTIMATE> DECREASED; <PLT MORPHOLOGY> NORMAL PLT MORPH; OVALOCYTES 1+; TEAR DROPS 1+
[2019-01-30] MEDS: OMEPRAZOLE 20 MG CAPSULE.DR PO SCH ×2 (06:02→17:55)
[2019-01-30] MEDS: CEFAZOLIN PMX 2GM/50ML 50 ML IVPB SCH ×3 (06:02→21:20)
[2019-01-30] MEDS: DOCUSATE 100 MG CAPSULE PO PRN ×2 (06:09→21:20)
[2019-01-30] MEDS: BUDESONIDE 0.5 MG/2 ML INHA NPPB SCH ×2 (07:25→22:15)
[2019-01-30] MEDS: ALBUTEROL/IPRATROPIUM 2.5MG/0.5MG, 3 ML NPPB SCH ×4 (07:25→22:15)
[2019-01-30 07:52] VITALS: BP 102/66
[2019-01-30] MEDS ORDERED: SERTRALINE 100MG TABLET ONE (09:31)
[2019-01-30] MEDS: DIGOXIN 0.125 MG TABLET PO SCH (09:38)
[2019-01-30] MEDS: FERROUS SULFATE 325 MG TABLET PO SCH (09:38)
[2019-01-30] MEDS: ASCORBIC ACID 500 MG TABLET PO SCH (09:39)
[2019-01-30] MEDS: SERTRALINE 50MG TABLET PO SCH (09:40)
[2019-01-30] MEDS: APIXABAN 5 MG TABLET PO SCH ×2 (09:40→21:20)
[2019-01-30] MEDS: BUSPIRONE 5 MG TABLET PO SCH ×2 (09:41→21:19)
[2019-01-30] MEDS: SPIRONOLACTONE 25 MG TABLET PO SCH (09:43)
[2019-01-30] MEDS: CHOLECALCIFEROL 1,000 UNIT TABLET PO SCH (09:43)
[2019-01-30] MEDS: FUROSEMIDE 40 MG/4 ML IV SCH (09:44)
[2019-01-30 13:35] VITALS: BP 101/56
[2019-01-30] MEDS: GUAIFENESIN 200 MG TABLET PO SCH ×2 (16:23→21:20)
[2019-01-30 20:51] VITALS: BP 123/71
[2019-01-30] MEDS: ATORVASTATIN 10 MG TABLET PO SCH (21:20)
[2019-01-30] MEDS: DIPHENHYDRAMINE 25 MG CAPSULE PO SCH (21:20)
[2019-01-31 04:08] VITALS: BP 116/74
[2019-01-31] MEDS: CEFAZOLIN PMX 2GM/50ML 50 ML IVPB SCH ×3 (05:19→21:39)
[2019-01-31] MEDS: OMEPRAZOLE 20 MG CAPSULE.DR PO SCH ×2 (05:20→16:50)
[2019-01-31] MEDS: GUAIFENESIN 200 MG TABLET PO SCH ×4 (05:20→21:27)
[2019-01-31 05:43] LABS: ALBUMIN 3.2 g/dL (3.4-5.0); ANION GAP 6 mmol/L (5-15); CALCIUM 8.6 mg/dL (8.5-10.1); CHLORIDE 102 mmol/L (98-107)
[2019-01-31 05:44] LABS: MEAN CORPUSCULAR HEMOGLOBIN 30.8 pg (27.5-34.5); MEAN CORPUSCULAR HGB CONC 31.8 g/dL (33.2-36.2); MEAN PLATELET VOLUME 9.2 fL (7.4-10.4); PLATELET COUNT 123 x10^3/uL (130-400); RED BLOOD COUNT 2.87 x10^6/uL (4.38-5.82); RED CELL DISTRIBUTION WIDTH 23.1 % (9.4-14.8)
[2019-01-31 05:50] LABS: ALANINE AMINOTRANSFERASE 8 U/L (12-78); ALKALINE PHOSPHATASE 72 U/L (45-117); BILIRUBIN,TOTAL 0.3 mg/dL (0.2-1.0); CREATININE 1.27 mg/dL (0.7-1.3); TOTAL PROTEIN 6.2 g/dL (6.4-8.2)
[2019-01-31 06:07] LABS: BASOPHILS # (AUTO) 0.03 x10^3/uL (0-0.1); BASOPHILS % (AUTO) 0 % (0-1); EOSINOPHILS # (AUTO) 0.24 x10^3/uL (0-0.4); EOSINOPHILS % (AUTO) 3 % (1-7); LYMPHOCYTES # (AUTO) 0.56 x10^3/uL (1-3.4); LYMPHOCYTES % (AUTO) 8 % (22-44); MD SCAN; MONOCYTES # (AUTO) 0.32 x10^3/uL (0.2-0.8); MONOCYTES % (AUTO) 4 % (2-9); NEUTROPHILS # (AUTO) 6.04 x10^3/uL (1.8-6.8); NEUTROPHILS % (AUTO) 84 % (42-75)
[2019-01-31 06:35] VITALS: BP 108/62
[2019-01-31] MEDS: ALBUTEROL/IPRATROPIUM 2.5MG/0.5MG, 3 ML NPPB SCH ×4 (07:20→19:58)
[2019-01-31] MEDS: BUDESONIDE 0.5 MG/2 ML INHA NPPB SCH ×2 (07:20→19:58)
[2019-01-31] MEDS ORDERED: MAGNESIUM HYDROXIDE 8%, 30ML UDC PO PRN (09:00)
[2019-01-31] MEDS: FERROUS SULFATE 325 MG TABLET PO SCH (09:56)
[2019-01-31] MEDS: CHOLECALCIFEROL 1,000 UNIT TABLET PO SCH (09:56)
[2019-01-31] MEDS: SPIRONOLACTONE 25 MG TABLET PO SCH (09:57)
[2019-01-31] MEDS: BUSPIRONE 5 MG TABLET PO SCH ×2 (09:57→21:27)
[2019-01-31] MEDS: DOCUSATE 100 MG CAPSULE PO SCH ×2 (09:58→21:27)
[2019-01-31] MEDS: ASCORBIC ACID 500 MG TABLET PO SCH (09:58)
[2019-01-31] MEDS: APIXABAN 5 MG TABLET PO SCH ×2 (09:58→21:27)
[2019-01-31] MEDS: SERTRALINE 50MG TABLET PO SCH (09:59)
[2019-01-31] MEDS: DIGOXIN 0.125 MG TABLET PO SCH (09:59)
[2019-01-31] MEDS: VORICONAZOLE 400 MG in DEXTROSE 5% 100 ML IV SCH (11:20)
[2019-01-31] MEDS: FUROSEMIDE 40 MG TABLET PO SCH ×2 (11:28→21:28)
[2019-01-31 13:46] VITALS: BP 98/58
[2019-01-31 19:52] VITALS: BP 111/69
[2019-01-31] MEDS: DIPHENHYDRAMINE 25 MG CAPSULE PO SCH (21:28)
[2019-01-31] MEDS: ATORVASTATIN 10 MG TABLET PO SCH (21:28)
[2019-02-01 01:54] VITALS: BP 101/69
[2019-02-01 05:56] LABS: MEAN CORPUSCULAR HEMOGLOBIN 29.9 pg (27.5-34.5); MEAN CORPUSCULAR HGB CONC 31.3 g/dL (33.2-36.2); MEAN CORPUSCULAR VOLUME 95.6 fL (81-97); MEAN PLATELET VOLUME 8.6 fL (7.4-10.4); PLATELET COUNT 97 x10^3/uL (130-400)
[2019-02-01 06:02] LABS: CHLORIDE 104 mmol/L (98-107)
[2019-02-01 06:13] LABS: ALBUMIN 2.9 g/dL (3.4-5.0); ALKALINE PHOSPHATASE 58 U/L (45-117); ANION GAP 5 mmol/L (5-15); BILIRUBIN,TOTAL 0.3 mg/dL (0.2-1.0); CALCIUM 8.2 mg/dL (8.5-10.1); CREATININE 1.16 mg/dL (0.7-1.3); TOTAL PROTEIN 5.7 g/dL (6.4-8.2)
[2019-02-01 06:17] LABS: ALANINE AMINOTRANSFERASE < 6 U/L (12-78)
[2019-02-01] MEDS: GUAIFENESIN 200 MG TABLET PO SCH ×4 (06:17→21:01)
[2019-02-01] MEDS: OMEPRAZOLE 20 MG CAPSULE.DR PO SCH ×2 (06:17→16:04)
[2019-02-01] MEDS: CEFAZOLIN PMX 2GM/50ML 50 ML IVPB SCH ×3 (06:17→22:19)
[2019-02-01 06:55] LABS: BASOPHILS # (AUTO) 0.03 x10^3/uL (0-0.1); BASOPHILS % (AUTO) 1 % (0-1); EOSINOPHILS # (AUTO) 0.07 x10^3/uL (0-0.4); EOSINOPHILS % (AUTO) 2 % (1-7); LYMPHOCYTES # (AUTO) 0.27 x10^3/uL (1-3.4); LYMPHOCYTES % (AUTO) 6 % (22-44); MD SCAN; MONOCYTES # (AUTO) 0.26 x10^3/uL (0.2-0.8); MONOCYTES % (AUTO) 6 % (2-9); NEUTROPHILS % (AUTO) 87 % (42-75)
[2019-02-01] MEDS: ALBUTEROL/IPRATROPIUM 2.5MG/0.5MG, 3 ML NPPB SCH ×4 (07:29→19:37)
[2019-02-01] MEDS: BUDESONIDE 0.5 MG/2 ML INHA NPPB SCH ×2 (07:29→19:38)
[2019-02-01 07:40] VITALS: BP 97/63
[2019-02-01 10:02] VITALS: BP 121/65
[2019-02-01] MEDS: FUROSEMIDE 40 MG TABLET PO SCH ×2 (10:03→21:02)
[2019-02-01] MEDS: MAGNESIUM HYDROXIDE 8%, 30ML UDC PO SCH (10:03)
[2019-02-01] MEDS: CHOLECALCIFEROL 1,000 UNIT TABLET PO SCH (10:03)
[2019-02-01] MEDS: DIGOXIN 0.125 MG TABLET PO SCH (10:04)
[2019-02-01] MEDS: APIXABAN 5 MG TABLET PO SCH ×2 (10:04→21:02)
[2019-02-01] MEDS: SERTRALINE 50MG TABLET PO SCH (10:04)
[2019-02-01] MEDS: FERROUS SULFATE 325 MG TABLET PO SCH (10:04)
[2019-02-01] MEDS: BUSPIRONE 5 MG TABLET PO SCH ×2 (10:04→21:02)
[2019-02-01] MEDS: ASCORBIC ACID 500 MG TABLET PO SCH (10:05)
[2019-02-01] MEDS: DOCUSATE 100 MG CAPSULE PO SCH ×2 (10:05→21:02)
[2019-02-01] MEDS: SPIRONOLACTONE 25 MG TABLET PO SCH (10:05)
[2019-02-01 13:14] VITALS: BP 103/60
[2019-02-01 20:03] VITALS: BP 131/56
[2019-02-01] MEDS: DIPHENHYDRAMINE 25 MG CAPSULE PO SCH (21:01)
[2019-02-01] MEDS: ATORVASTATIN 10 MG TABLET PO SCH (21:02)
[2019-02-02 01:52] VITALS: BP 122/66
[2019-02-02] MEDS: CEFAZOLIN PMX 2GM/50ML 50 ML IVPB SCH ×3 (06:21→21:56)
[2019-02-02] MEDS: GUAIFENESIN 200 MG TABLET PO SCH ×4 (06:21→21:55)
[2019-02-02] MEDS: OMEPRAZOLE 20 MG CAPSULE.DR PO SCH ×2 (06:21→16:20)
[2019-02-02 06:40] LABS: MEAN CORPUSCULAR HEMOGLOBIN 30.2 pg (27.5-34.5); MEAN CORPUSCULAR HGB CONC 31.3 g/dL (33.2-36.2); MEAN CORPUSCULAR VOLUME 96.3 fL (81-97); MEAN PLATELET VOLUME 9.1 fL (7.4-10.4); PLATELET COUNT 109 x10^3/uL (130-400); RED BLOOD COUNT 2.63 x10^6/uL (4.38-5.82); RED CELL DISTRIBUTION WIDTH 22.9 % (9.4-14.8)
[2019-02-02 06:51] LABS: ANION GAP 5 mmol/L (5-15); CALCIUM 8.5 mg/dL (8.5-10.1); CHLORIDE 103 mmol/L (98-107); CREATININE 1.22 mg/dL (0.7-1.3)
[2019-02-02] MEDS: BUDESONIDE 0.5 MG/2 ML INHA NPPB SCH ×2 (07:05→20:35)
[2019-02-02] MEDS: ALBUTEROL/IPRATROPIUM 2.5MG/0.5MG, 3 ML NPPB SCH ×4 (07:05→20:00)
[2019-02-02 07:14] VITALS: BP 106/63
[2019-02-02 07:34] LABS: BASOPHILS # (AUTO) 0.02 x10^3/uL (0-0.1); BASOPHILS % (AUTO) 1 % (0-1); EOSINOPHILS # (AUTO) 0.11 x10^3/uL (0-0.4); EOSINOPHILS % (AUTO) 2 % (1-7); LYMPHOCYTES % (AUTO) 6 % (22-44); MD SCAN; MONOCYTES % (AUTO) 6 % (2-9); NEUTROPHILS # (AUTO) 4.05 x10^3/uL (1.8-6.8); NEUTROPHILS % (AUTO) 85 % (42-75)
[2019-02-02] MEDS: CHOLECALCIFEROL 1,000 UNIT TABLET PO SCH (08:18)
[2019-02-02] MEDS: ASCORBIC ACID 500 MG TABLET PO SCH (08:18)
[2019-02-02] MEDS: FERROUS SULFATE 325 MG TABLET PO SCH (08:18)
[2019-02-02] MEDS: DOCUSATE 100 MG CAPSULE PO SCH ×2 (08:19→21:55)
[2019-02-02] MEDS: BUSPIRONE 5 MG TABLET PO SCH ×2 (08:20→21:55)
[2019-02-02] MEDS: SERTRALINE 50MG TABLET PO SCH (08:21)
[2019-02-02] MEDS: SPIRONOLACTONE 25 MG TABLET PO SCH (08:21)
[2019-02-02] MEDS: FUROSEMIDE 40 MG TABLET PO SCH ×2 (08:21→15:32)
[2019-02-02] MEDS: DIGOXIN 0.125 MG TABLET PO SCH (08:22)
[2019-02-02] MEDS: MAGNESIUM HYDROXIDE 8%, 30ML UDC PO SCH (08:22)
[2019-02-02] MEDS: APIXABAN 5 MG TABLET PO SCH ×2 (08:22→21:55)
[2019-02-02] MEDS ORDERED: CEFTRIAXONE PMX 1GM/50ML 50 ML IV SCH (13:00)
[2019-02-02 14:03] VITALS: BP 102/57
[2019-02-02] MEDS: METOLAZONE 2.5 MG TABLET PO SCH (14:40)
[2019-02-02] MEDS ORDERED: FUROSEMIDE 40 MG TABLET ONE (15:30)
[2019-02-02 18:58] VITALS: BP 137/74
[2019-02-02] MEDS: ATORVASTATIN 10 MG TABLET PO SCH (21:55)
[2019-02-02] MEDS: DIPHENHYDRAMINE 25 MG CAPSULE PO SCH (21:55)
[2019-02-03 00:30] VITALS: BP 113/60
[2019-02-03] MEDS: CEFAZOLIN PMX 2GM/50ML 50 ML IVPB SCH ×3 (06:14→21:49)
[2019-02-03] MEDS: GUAIFENESIN 200 MG TABLET PO SCH ×4 (06:15→21:48)
[2019-02-03] MEDS: OMEPRAZOLE 20 MG CAPSULE.DR PO SCH ×2 (06:15→16:49)
[2019-02-03 06:26] LABS: MEAN CORPUSCULAR HEMOGLOBIN 30.5 pg (27.5-34.5); MEAN CORPUSCULAR HGB CONC 31.5 g/dL (33.2-36.2); MEAN PLATELET VOLUME 9.1 fL (7.4-10.4); PLATELET COUNT 116 x10^3/uL (130-400); RED CELL DISTRIBUTION WIDTH 22.6 % (9.4-14.8)
[2019-02-03 06:40] LABS: ANION GAP 8 mmol/L (5-15); CALCIUM 8.9 mg/dL (8.5-10.1); CHLORIDE 100 mmol/L (98-107)
[2019-02-03 06:47] LABS: CREATININE 1.17 mg/dL (0.7-1.3)
[2019-02-03 07:17] VITALS: BP 102/62
[2019-02-03] MEDS ORDERED: METOLAZONE 2.5 MG TABLET PO SCH (07:30)
[2019-02-03] MEDS: BUDESONIDE 0.5 MG/2 ML INHA NPPB SCH ×2 (07:39→21:00)
[2019-02-03] MEDS: ALBUTEROL/IPRATROPIUM 2.5MG/0.5MG, 3 ML NPPB SCH ×4 (07:39→20:00)
[2019-02-03 08:00] LABS: BASOPHILS # (AUTO) 0.04 x10^3/uL (0-0.1); BASOPHILS % (AUTO) 1 % (0-1); EOSINOPHILS # (AUTO) 0.17 x10^3/uL (0-0.4); EOSINOPHILS % (AUTO) 4 % (1-7); LYMPHOCYTES # (AUTO) 0.33 x10^3/uL (1-3.4); LYMPHOCYTES % (AUTO) 7 % (22-44); MD SCAN; MONOCYTES # (AUTO) 0.29 x10^3/uL (0.2-0.8); MONOCYTES % (AUTO) 6 % (2-9); NEUTROPHILS # (AUTO) 3.82 x10^3/uL (1.8-6.8); NEUTROPHILS % (AUTO) 82 % (42-75)
[2019-02-03] MEDS: METOLAZONE 2.5 MG TABLET PO SCH (08:00)
[2019-02-03] MEDS: APIXABAN 5 MG TABLET PO SCH ×2 (09:17→21:47)
[2019-02-03] MEDS: BUSPIRONE 5 MG TABLET PO SCH ×2 (09:18→21:48)
[2019-02-03] MEDS: FERROUS SULFATE 325 MG TABLET PO SCH (09:18)
[2019-02-03] MEDS: DIGOXIN 0.125 MG TABLET PO SCH (09:18)
[2019-02-03] MEDS: FUROSEMIDE 40 MG TABLET PO SCH ×2 (09:18→21:47)
[2019-02-03] MEDS: SERTRALINE 50MG TABLET PO SCH (09:19)
[2019-02-03] MEDS: ASCORBIC ACID 500 MG TABLET PO SCH (09:19)
[2019-02-03] MEDS: CHOLECALCIFEROL 1,000 UNIT TABLET PO SCH (09:19)
[2019-02-03] MEDS: DOCUSATE 100 MG CAPSULE PO SCH ×2 (09:19→21:47)
[2019-02-03] MEDS: SPIRONOLACTONE 25 MG TABLET PO SCH (09:19)
[2019-02-03] MEDS: MAGNESIUM HYDROXIDE 8%, 30ML UDC PO SCH (09:20)
[2019-02-03 13:11] VITALS: BP 110/66
[2019-02-03 19:43] VITALS: BP 115/67
[2019-02-03 21:45] VITALS: BP 106/64
[2019-02-03] MEDS: DIPHENHYDRAMINE 25 MG CAPSULE PO SCH (21:47)
[2019-02-03] MEDS: ATORVASTATIN 10 MG TABLET PO SCH (21:47)
[2019-02-04 01:20] VITALS: BP 107/60
[2019-02-04] MEDS: CEFAZOLIN PMX 2GM/50ML 50 ML IVPB SCH ×2 (05:28→14:07)
[2019-02-04] MEDS: OMEPRAZOLE 20 MG CAPSULE.DR PO SCH ×2 (05:32→17:33)
[2019-02-04] MEDS: GUAIFENESIN 200 MG TABLET PO SCH ×3 (05:32→16:00)
[2019-02-04 05:50] LABS: ANION GAP 5 mmol/L (5-15); CALCIUM 8.6 mg/dL (8.5-10.1); CHLORIDE 101 mmol/L (98-107); CREATININE 1.28 mg/dL (0.7-1.3)
[2019-02-04 05:59] LABS: MEAN CORPUSCULAR HEMOGLOBIN 30.8 pg (27.5-34.5); MEAN CORPUSCULAR HGB CONC 31.7 g/dL (33.2-36.2); MEAN CORPUSCULAR VOLUME 97.1 fL (81-97); MEAN PLATELET VOLUME 8.6 fL (7.4-10.4); PLATELET COUNT 130 x10^3/uL (130-400); RED BLOOD COUNT 2.84 x10^6/uL (4.38-5.82); RED CELL DISTRIBUTION WIDTH 22.3 % (9.4-14.8)
[2019-02-04 06:37] LABS: BASOPHILS % (AUTO) 0 % (0-1); EOSINOPHILS # (AUTO) 0.19 x10^3/uL (0-0.4); EOSINOPHILS % (AUTO) 5 % (1-7); LYMPHOCYTES # (AUTO) 0.37 x10^3/uL (1-3.4); LYMPHOCYTES % (AUTO) 9 % (22-44); MD SCAN; MONOCYTES # (AUTO) 0.26 x10^3/uL (0.2-0.8); MONOCYTES % (AUTO) 6 % (2-9); NEUTROPHILS # (AUTO) 3.52 x10^3/uL (1.8-6.8); NEUTROPHILS % (AUTO) 81 % (42-75)
[2019-02-04] MEDS: ALBUTEROL/IPRATROPIUM 2.5MG/0.5MG, 3 ML NPPB SCH ×2 (06:45→10:26)
[2019-02-04] MEDS: METOLAZONE 2.5 MG TABLET PO SCH (07:25)
[2019-02-04 08:05] VITALS: BP 107/68
[2019-02-04] MEDS: BUDESONIDE 0.5 MG/2 ML INHA NPPB SCH (09:00)
[2019-02-04] MEDS: FUROSEMIDE 40 MG TABLET PO SCH (09:11)
[2019-02-04] MEDS: BUSPIRONE 5 MG TABLET PO SCH (09:11)
[2019-02-04] MEDS: ASCORBIC ACID 500 MG TABLET PO SCH (09:11)
[2019-02-04] MEDS: SERTRALINE 50MG TABLET PO SCH (09:11)
[2019-02-04] MEDS: DIGOXIN 0.125 MG TABLET PO SCH (09:12)
[2019-02-04] MEDS: CHOLECALCIFEROL 1,000 UNIT TABLET PO SCH (09:12)
[2019-02-04] MEDS: FERROUS SULFATE 325 MG TABLET PO SCH (09:12)
[2019-02-04] MEDS: APIXABAN 5 MG TABLET PO SCH (09:12)
[2019-02-04] MEDS: MAGNESIUM HYDROXIDE 8%, 30ML UDC PO SCH (09:13)
[2019-02-04] MEDS: DOCUSATE 100 MG CAPSULE PO SCH (09:13)
[2019-02-04] MEDS: SPIRONOLACTONE 25 MG TABLET PO SCH (09:13)
[2019-02-04 13:52] VITALS: BP 110/64
[2019-02-04] MEDS ORDERED: METO2.5T PO (15:36)
[2019-02-04] MEDS ORDERED: GUAI200T37 PO (15:36)
[2019-02-04] MEDS ORDERED: FURO40TA6 PO (15:36)
[2019-02-04] MEDS ORDERED: CEFA1VIA2 IA (15:36)
[2019-02-04] MEDS ORDERED: ONDA4TAB13 PO (15:52)
[2019-02-04] MEDS ORDERED: ACET250T2 PO (16:04)
== END 2019-02-04 18:06 | DRG 377 ==
LOC: ED 17:01 → EDIP 19:18 → 5SO 20:19
PROVIDERS: ADMIT Family Medicine; ATTEND Internal Medicine
PROC: 30233N1 Transfusion of Nonautologous Red Blood Cells into Peripheral Vein, Percutaneous Approach (ICD-10-PCS; principal; 2019-01-24)
PROC: 0W3P8ZZ Control Bleeding in Gastrointestinal Tract, Via Natural or Artificial Opening Endoscopic (ICD-10-PCS; 2019-01-28)
DX: K55.21 Angiodysplasia of colon with hemorrhage (principal); I50.33 Acute on chronic diastolic (congestive) heart failure; I26.99 Other pulmonary embolism without acute cor pulmonale; J96.21 Acute and chronic respiratory failure with hypoxia; A41.2 Sepsis due to unspecified staphylococcus; D68.69 Other thrombophilia; E87.4 Mixed disorder of acid-base balance; I48.92 Unspecified atrial flutter; K31.811 Angiodysplasia of stomach and duodenum with bleeding; D69.2 Other nonthrombocytopenic purpura; D69.6 Thrombocytopenia, unspecified; E78.5 Hyperlipidemia, unspecified; E83.42 Hypomagnesemia; E83.51 Hypocalcemia; I11.0 Hypertensive heart disease with heart failure; I25.10 Atherosclerotic heart disease of native coronary artery without angina pectoris; I25.5 Ischemic cardiomyopathy; I27.20 Pulmonary hypertension, unspecified; I48.0 Paroxysmal atrial fibrillation; J43.9 Emphysema, unspecified; K59.00 Constipation, unspecified; N19 Unspecified kidney failure; D50.0 Iron deficiency anemia secondary to blood loss (chronic); K26.9 Duodenal ulcer, unspecified as acute or chronic, without hemorrhage or perforation; N40.0 Benign prostatic hyperplasia without lower urinary tract symptoms; S41.111A Laceration without foreign body of right upper arm, initial encounter; X58.XXXA Exposure to other specified factors, initial encounter; I25.2 Old myocardial infarction; Y93.89 Activity, other specified; Y92.89 Other specified places as the place of occurrence of the external cause; Y99.8 Other external cause status; Z79.01 Long term (current) use of anticoagulants; Z82.49 Family history of ischemic heart disease and other diseases of the circulatory system; Z87.891 Personal history of nicotine dependence; Z86.711 Personal history of pulmonary embolism; Z95.1 Presence of aortocoronary bypass graft; Z95.2 Presence of prosthetic heart valve; Z99.81 Dependence on supplemental oxygen; Z90.49 Acquired absence of other specified parts of digestive tract
CPT/HCPCS: 36415; 36430; 71045; 71275; 80048; 80053; 80162; 82272; 83605; 83735; 83880; 84100; 84145; 84484; 85025; 85610; 86850; 86900; 86923; 87040; 93005; 94640; G0378; J0637; J0690; J1940; J2543; J2704; J3370; J3465; J7620; J7626; J3475; J7050; J7512; P9016; Q0163

== ENCOUNTER 2019-05-04 07:55 | Outpatient (CLI) | payer MEDICARE ==
[~2019-05-04 07:55] MED LIST changes: -ACET-1757 PO; +ACET-2065 PO; +ACET250T2 PO; +CASP50VI2 IV; +CEFA1VIA2 IA; +DIPH25CA61 PO; -DOXY100T10 PO; +DOXY100T23 PO; +GUAI200T37 PO; +METO2.5T PO; +ONDA4TAB13 PO
[2019-05-04 08:13] LABS: BASOPHILS # (AUTO) 0.08 x10^3/uL (0-0.1); BASOPHILS % (AUTO) 1 % (0-1); EOSINOPHILS # (AUTO) 0.22 x10^3/uL (0-0.4); EOSINOPHILS % (AUTO) 3 % (1-7); LYMPHOCYTES # (AUTO) 0.74 x10^3/uL (1-3.4); LYMPHOCYTES % (AUTO) 9 % (22-44); MD NO; MEAN CORPUSCULAR HEMOGLOBIN 30.7 pg (27.5-34.5); MEAN PLATELET VOLUME 8.3 fL (7.4-10.4); MONOCYTES # (AUTO) 0.49 x10^3/uL (0.2-0.8); MONOCYTES % (AUTO) 6 % (2-9); NEUTROPHILS # (AUTO) 6.85 x10^3/uL (1.8-6.8); NEUTROPHILS % (AUTO) 82 % (42-75); PLATELET COUNT 140 x10^3/uL (130-400); RED BLOOD COUNT 4.42 x10^6/uL (4.38-5.82); RED CELL DISTRIBUTION WIDTH 15.9 % (9.4-14.8)
== END 2019-05-04 23:59 | disposition home or self-care (01) ==
LOC: LAB 07:55
PROVIDERS: ATTEND Internal Medicine Gastroenterology
DX: D50.9 Iron deficiency anemia, unspecified (principal); J44.9 Chronic obstructive pulmonary disease, unspecified; K31.811 Angiodysplasia of stomach and duodenum with bleeding; Z79.01 Long term (current) use of anticoagulants
CPT/HCPCS: 36415; 82728; 83540; 83550; 85025

== ENCOUNTER → 2019-05-26 | Outpatient (CLI) | payer MEDICARE | END | disposition home or self-care (01) | LOC: LAB 13:41 | PROVIDERS: ATTEND Registered Nurse | DX: J44.1 Chronic obstructive pulmonary disease with (acute) exacerbation (principal) | CPT/HCPCS: 87015; 87070; 87077; 87102; 87116; 87186; 87205; 87206 ==

== ENCOUNTER → 2019-05-31 | Outpatient (CLI) | payer MEDICARE | END | disposition home or self-care (01) | LOC: CFH 09:32 | PROVIDERS: ATTEND Registered Nurse | DX: I31.1 Chronic constrictive pericarditis (principal); J44.1 Chronic obstructive pulmonary disease with (acute) exacerbation; I50.812 Chronic right heart failure; Z95.2 Presence of prosthetic heart valve | CPT/HCPCS: 71250 ==

== ENCOUNTER → 2019-07-08 | Outpatient (CLI) | payer MEDICARE ==
[2019-07-08 07:56] LABS: BASOPHILS # (AUTO) 0.02 x10^3/uL (0-0.1); BASOPHILS % (AUTO) 0 % (0-1); EOSINOPHILS # (AUTO) 0.17 x10^3/uL (0-0.4); EOSINOPHILS % (AUTO) 2 % (1-7); LYMPHOCYTES # (AUTO) 0.64 x10^3/uL (1-3.4); LYMPHOCYTES % (AUTO) 8 % (22-44); MD NO; MEAN CORPUSCULAR HEMOGLOBIN 30.8 pg (27.5-34.5); MEAN CORPUSCULAR HGB CONC 32.3 g/dL (33.2-36.2); MEAN CORPUSCULAR VOLUME 95.5 fL (81-97); MEAN PLATELET VOLUME 8.5 fL (7.4-10.4); MONOCYTES # (AUTO) 0.44 x10^3/uL (0.2-0.8); MONOCYTES % (AUTO) 6 % (2-9); NEUTROPHILS % (AUTO) 84 % (42-75); PLATELET COUNT 138 x10^3/uL (130-400); RED BLOOD COUNT 4.03 x10^6/uL (4.38-5.82); RED CELL DISTRIBUTION WIDTH 17.5 % (9.4-14.8)
== END | disposition home or self-care (01) ==
LOC: LAB 07:34
PROVIDERS: ATTEND Internal Medicine Gastroenterology
DX: J96.11 Chronic respiratory failure with hypoxia (principal); J44.1 Chronic obstructive pulmonary disease with (acute) exacerbation; D50.9 Iron deficiency anemia, unspecified; K55.8 Other vascular disorders of intestine; I50.9 Heart failure, unspecified; Z79.01 Long term (current) use of anticoagulants
CPT/HCPCS: 36415; 82728; 83540; 83550; 85025

== ENCOUNTER → 2019-08-04 | Outpatient (CLI) | payer MEDICARE ==
[~2019-08-04] MED LIST changes: -DIGO125T PO; +DIGO125T85 PO
== END | disposition home or self-care (01) ==
LOC: CFH 09:03
PROVIDERS: ATTEND Family Medicine
DX: M81.0 Age-related osteoporosis without current pathological fracture (principal); Z79.52 Long term (current) use of systemic steroids
CPT/HCPCS: 77080

== ENCOUNTER 2019-08-27 07:31 | Outpatient (CLI) | payer MEDICARE ==
[2019-08-27 07:47] LABS: BASOPHILS # (AUTO) 0.01 x10^3/uL (0-0.1); BASOPHILS % (AUTO) 0 % (0-1); EOSINOPHILS # (AUTO) 0.15 x10^3/uL (0-0.4); EOSINOPHILS % (AUTO) 2 % (1-7); LYMPHOCYTES # (AUTO) 0.58 x10^3/uL (1-3.4); LYMPHOCYTES % (AUTO) 8 % (22-44); MD NO; MEAN CORPUSCULAR HEMOGLOBIN 31.1 pg (27.5-34.5); MEAN CORPUSCULAR HGB CONC 32.1 g/dL (33.2-36.2); MEAN PLATELET VOLUME 7.8 fL (7.4-10.4); MONOCYTES # (AUTO) 0.35 x10^3/uL (0.2-0.8); MONOCYTES % (AUTO) 5 % (2-9); NEUTROPHILS # (AUTO) 5.98 x10^3/uL (1.8-6.8); NEUTROPHILS % (AUTO) 85 % (42-75); PLATELET COUNT 141 x10^3/uL (130-400); RED BLOOD COUNT 3.78 x10^6/uL (4.38-5.82); RED CELL DISTRIBUTION WIDTH 15.6 % (9.4-14.8)
[2019-08-27 07:56] LABS: ALANINE AMINOTRANSFERASE 27 U/L (12-78); ALBUMIN 3.8 g/dL (3.4-5.0); ANION GAP 3 mmol/L (5-15); CALCIUM 8.4 mg/dL (8.5-10.1); CHLORIDE 105 mmol/L (98-107); CHOLESTEROL, TOTAL 116 mg/dL (140-239); CREATININE 1.45 mg/dL (0.7-1.3)
[2019-08-27 07:58] LABS: ALKALINE PHOSPHATASE 96 U/L (45-117); BILIRUBIN,TOTAL 0.7 mg/dL (0.2-1.0); TOTAL PROTEIN 6.9 g/dL (6.4-8.2)
[2019-08-27 07:59] LABS: CHOL/HDL RATIO 2.3; HDL CHOL % 44 % (26-37); HDL CHOLESTEROL (DIRECT) 51 mg/dL (40-60); LDL CHOLESTEROL,CALCULATED 55 mg/dL (54-169); LDL/HDL RATIO 1.1 (0.5-3.0); TRIGLYCERIDES 48 mg/dL (50-200); VLDL CHOLESTEROL 10 mg/dL (0-25)
== END 2019-08-27 23:59 | disposition home or self-care (01) ==
LOC: LAB 07:31
PROVIDERS: ATTEND Internal Medicine Cardiovascular Disease
DX: I25.10 Atherosclerotic heart disease of native coronary artery without angina pectoris (principal); I48.0 Paroxysmal atrial fibrillation; J44.9 Chronic obstructive pulmonary disease, unspecified; K55.8 Other vascular disorders of intestine; K31.811 Angiodysplasia of stomach and duodenum with bleeding; Z79.01 Long term (current) use of anticoagulants
CPT/HCPCS: 36415; 80053; 80061; 80162; 85025

== ENCOUNTER → 2019-09-27 | Outpatient (CLI) | payer MEDICARE | END | disposition home or self-care (01) | LOC: CVU 07:31 | PROVIDERS: ATTEND Internal Medicine Cardiovascular Disease | DX: I08.8 Other rheumatic multiple valve diseases (principal); I25.10 Atherosclerotic heart disease of native coronary artery without angina pectoris; J44.9 Chronic obstructive pulmonary disease, unspecified; I48.91 Unspecified atrial fibrillation; I25.2 Old myocardial infarction | CPT/HCPCS: 93306 ==

== ENCOUNTER → 2019-12-29 | Outpatient (CLI) | payer MEDICARE ==
[2019-12-29 07:47] LABS: ANION GAP 4 mmol/L (5-15); CALCIUM 9.4 mg/dL (8.5-10.1); CHLORIDE 99 mmol/L (98-107)
[2019-12-29 07:50] LABS: ALANINE AMINOTRANSFERASE 32 U/L (12-78); ALKALINE PHOSPHATASE 63 U/L (45-117); BILIRUBIN,TOTAL 0.8 mg/dL (0.2-1.0); CHOL/HDL RATIO 2.2; CHOLESTEROL, TOTAL 121 mg/dL (140-239); CREATININE 1.38 mg/dL (0.7-1.3); HDL CHOL % 46 % (26-37); HDL CHOLESTEROL (DIRECT) 56 mg/dL (40-60); LDL CHOLESTEROL,CALCULATED 53 mg/dL (54-169); LDL/HDL RATIO 0.9 (0.5-3.0); TOTAL PROTEIN 7.1 g/dL (6.4-8.2); TRIGLYCERIDES 60 mg/dL (50-200); VLDL CHOLESTEROL 12 mg/dL (0-25)
== END | disposition home or self-care (01) ==
LOC: LAB 07:22
PROVIDERS: ATTEND Internal Medicine Cardiovascular Disease
DX: E78.2 Mixed hyperlipidemia (principal); D48.5 Neoplasm of uncertain behavior of skin; E11.8 Type 2 diabetes mellitus with unspecified complications; A41.52 Sepsis due to Pseudomonas; D50.0 Iron deficiency anemia secondary to blood loss (chronic); D68.69 Other thrombophilia; D68.9 Coagulation defect, unspecified; D69.6 Thrombocytopenia, unspecified; F34.1 Dysthymic disorder; G47.01 Insomnia due to medical condition
CPT/HCPCS: 36415; 80053; 80061

== ENCOUNTER 2020-02-23 19:13 | Emergency (ER) | payer MEDICARE ==
[~2020-02-23 19:13] MED LIST changes: +ASCO250T12 PO; -ASCO250T2 PO; -ENAL2.5T PO; +ENAL2.5T8 PO; -PANT40TA5 PO; +PANT40TA6 PO
--- NOTE | 2020-02-23 19:39 | NUR ---
PT PRESENTS TO THE ER FOR LEFT NOSTRIL EPITAXIS THAT STARTED AT 1400. PER "HE'S HAD A BLOODY NOSE ALMOST EVERY DAY THIS WEEK." PT HAS A HISTORY OF EPITAXIS SINCE HE BEGAN WEARING O2 5 YEARS AGO. PT IS TAKING ELIQUIS. PT HAS NOSE CLAMP IN PLACE AND TISSUE IN HIS LEFT NOSTRIL. PT INSTRUCTED TO BREATH THROUGH HIS MOUTH. VSS.
[2020-02-23] MEDS ORDERED: OXYMETAZOLINE NASAL SPRAY 0.05%,30ML ONE (19:58)
[2020-02-23] MEDS ORDERED: TRANEXAMIC ACID 100 MG/ML, 10ML ONE (20:04)
--- NOTE | 2020-02-23 20:16 | NUR ---
ERP TO BEDSIDE AT APPROX 2000 TO ADMINISTER MEDICATIONS. Addendum: 02/23/20 at 2026 by MADALYN ERP TO BEDSIDE AT APPROX 2000 TO ADMINISTER MEDICATION TXA.
[2020-02-23] MEDS ORDERED: OXYMETAZOLINE NASAL SPRAY 0.05%, 15ML NAS ONE (20:30)
[2020-02-23] MEDS ORDERED: TRANEXAMIC ACID 100 MG/ML, 10ML TP ONE (20:30)
[2020-02-23 20:48] LABS: BASOPHILS # (AUTO) 0.01 x10^3/uL (0-0.1); BASOPHILS % (AUTO) 0 % (0-1); EOSINOPHILS # (AUTO) 0.06 x10^3/uL (0-0.4); EOSINOPHILS % (AUTO) 1 % (1-7); LYMPHOCYTES # (AUTO) 0.36 x10^3/uL (1-3.4); LYMPHOCYTES % (AUTO) 4 % (22-44); MD NO; MEAN CORPUSCULAR HEMOGLOBIN 29.7 pg (27.5-34.5); MEAN CORPUSCULAR HGB CONC 31.6 g/dL (33.2-36.2); MEAN CORPUSCULAR VOLUME 94.1 fL (81-97); MEAN PLATELET VOLUME 8.4 fL (7.4-10.4); MONOCYTES # (AUTO) 0.34 x10^3/uL (0.2-0.8); MONOCYTES % (AUTO) 3 % (2-9); NEUTROPHILS % (AUTO) 92 % (42-75); PLATELET COUNT 155 x10^3/uL (130-400); RED CELL DISTRIBUTION WIDTH 15.9 % (9.4-14.8)
--- NOTE | 2020-02-23 21:23 | NUR ---
AT APPROX 2100 ERP BACK TO BEDSIDE TO ADMINISTER SILVER NITRATE. PT'S NOSE HAS SINCE STOPPED BLEEDING. NO SIGNS OF DISTRESS.
[2020-02-23 21:24] VITALS: BP 122/72
--- NOTE | 2020-02-23 21:30 | NUR ---
AFFRIN NOT ADMINISTERED BY PROVIDER.
== END 2020-02-23 21:32 | disposition home or self-care (01) ==
LOC: ED 21:18
DX: R04.0 Epistaxis (principal); I25.2 Old myocardial infarction; I25.10 Atherosclerotic heart disease of native coronary artery without angina pectoris; J44.9 Chronic obstructive pulmonary disease, unspecified; I48.91 Unspecified atrial fibrillation; I11.0 Hypertensive heart disease with heart failure; I50.9 Heart failure, unspecified; Z79.01 Long term (current) use of anticoagulants
CPT/HCPCS: 30901; 36415; 85025; 99284

== ENCOUNTER → 2020-02-29 | Outpatient (CLI) | payer MEDICARE ==
[2020-02-29 08:10] LABS: MEAN CORPUSCULAR HEMOGLOBIN 29.7 pg (27.5-34.5); MEAN CORPUSCULAR VOLUME 95.7 fL (81-97); MEAN PLATELET VOLUME 8.5 fL (7.4-10.4); PLATELET COUNT 159 x10^3/uL (130-400); RED BLOOD COUNT 4.13 x10^6/uL (4.38-5.82); RED CELL DISTRIBUTION WIDTH 16.5 % (9.4-14.8)
[2020-02-29 09:09] LABS: BASOPHILS # (AUTO) 0.03 x10^3/uL (0-0.1); BASOPHILS % (AUTO) 0 % (0-1); EOSINOPHILS # (AUTO) 0.16 x10^3/uL (0-0.4); EOSINOPHILS % (AUTO) 2 % (1-7); LYMPHOCYTES # (AUTO) 0.79 x10^3/uL (1-3.4); LYMPHOCYTES % (AUTO) 8 % (22-44); MD SCAN; MONOCYTES # (AUTO) 0.49 x10^3/uL (0.2-0.8); MONOCYTES % (AUTO) 5 % (2-9); NEUTROPHILS # (AUTO) 8.54 x10^3/uL (1.8-6.8); NEUTROPHILS % (AUTO) 85 % (42-75)
== END | disposition home or self-care (01) ==
LOC: LAB 07:41
PROVIDERS: ATTEND Internal Medicine Gastroenterology
DX: K31.811 Angiodysplasia of stomach and duodenum with bleeding (principal); K55.8 Other vascular disorders of intestine; Z79.01 Long term (current) use of anticoagulants
CPT/HCPCS: 36415; 82728; 83540; 83550; 85025

== ENCOUNTER 2020-03-05 17:00 | Emergency (ER) | payer MEDICARE ==
[~2020-03-05] VITALS: Ht 190.5 cm; Wt 90.1 kg
[2020-03-05 17:08] VITALS: BP 120/72
[2020-03-05] MEDS ORDERED: OXYMETAZOLINE NASAL SPRAY 0.05%,30ML ONE (17:27)
--- NOTE | 2020-03-05 17:56 | NUR ---
PT IN ROOM, AT SIDE. DENIES ANY CURRENT NEEDS, CALL LIGHT IN REACH.
== END 2020-03-05 18:50 ==
LOC: ED 17:30
DX: R04.0 Epistaxis (principal); I11.0 Hypertensive heart disease with heart failure; I50.9 Heart failure, unspecified; J44.9 Chronic obstructive pulmonary disease, unspecified; I25.10 Atherosclerotic heart disease of native coronary artery without angina pectoris; I25.2 Old myocardial infarction; I48.91 Unspecified atrial fibrillation; Z90.49 Acquired absence of other specified parts of digestive tract; Z87.891 Personal history of nicotine dependence; Z95.1 Presence of aortocoronary bypass graft
CPT/HCPCS: 99282

== ENCOUNTER 2020-05-05 20:33 | Emergency (ER) | payer MEDICARE ==
[~2020-05-05] VITALS: Ht 190.5 cm; Wt 89.0 kg
--- NOTE | 2020-05-05 21:21 | NUR ---
PT HAD CAUTERIZATION ON FRIDAY, STARTED BLEEDING AGAIN TODAY AT 1400 AND WENT TO ENT FOR PACKING PLACEMENT. STILL BLEEDING DESPITE PACKING. PT CONNECTED TO MONITORING ERROL SUMMERSN, AT BEDSIDE, DEBRA UMANZOR AT BEDSIDE FOR ASSESS
[2020-05-05] MEDS ORDERED: OXYMETAZOLINE NASAL SPRAY 0.05%, 15ML NAS ONE (21:30)
[2020-05-05] MEDS ORDERED: OXYMETAZOLINE NASAL SPRAY 0.05%,30ML ONE (21:38)
[2020-05-05] MEDS ORDERED: LORazepam 1MG TABLET ONE (21:40)
--- NOTE | 2020-05-05 21:42 | NUR ---
PT MEDICATED PER MAR, ENT CART SET UP FOR DEBRA UMANZOR. PT RESTING ON GURNEY REMAINS AT BEDSIDE
[2020-05-05] MEDS ORDERED: LORazepam 1MG TABLET PO ONE (22:00)
[2020-05-05 22:23] LABS: BASOPHILS % (AUTO) 1 % (0-1); EOSINOPHILS % (AUTO) 0 % (1-7); LYMPHOCYTES % (AUTO) 5 % (22-44); MEAN CORPUSCULAR HEMOGLOBIN 28.5 pg (27.5-34.5); MEAN CORPUSCULAR HGB CONC 31.7 g/dL (33.2-36.2); MEAN PLATELET VOLUME 8.9 fL (7.4-10.4); MONOCYTES % (AUTO) 7 % (2-9); NEUTROPHILS % (AUTO) 87 % (42-75); PLATELET COUNT 167 x10^3/uL (130-400); RED BLOOD COUNT 3.74 x10^6/uL (4.38-5.82); RED CELL DISTRIBUTION WIDTH 15.2 % (9.4-14.8)
[2020-05-05 22:26] LABS: MD NO
[2020-05-05 22:31] LABS: ALBUMIN 3.6 g/dL (3.4-5.0); ANION GAP 1 mmol/L (5-15); CHLORIDE 100 mmol/L (98-107); CREATININE 1.33 mg/dL (0.7-1.3)
--- NOTE | 2020-05-05 22:56 | NUR ---
REPORT TO ISMAEL LUCIOCO PILOT OF CARE AT THIS TIME
--- NOTE | 2020-05-05 22:57 | NUR ---
RECEIVED REPORT FROM KHADIJAH WHITNEY.
[2020-05-05] MEDS ORDERED: ACETAMINOPHEN 500 MG TABLET ONE (23:51)
[2020-05-06] MEDS ORDERED: ACETAMINOPHEN 500 MG TABLET PO ONE
[2020-05-06 00:11] VITALS: BP 113/59
== END 2020-05-06 00:13 | disposition home or self-care (01) ==
LOC: ED 23:36
DX: R04.0 Epistaxis (principal); R42 Dizziness and giddiness; R51.9 Headache, unspecified; J44.9 Chronic obstructive pulmonary disease, unspecified; I11.0 Hypertensive heart disease with heart failure; I50.9 Heart failure, unspecified; I25.2 Old myocardial infarction; I48.91 Unspecified atrial fibrillation
CPT/HCPCS: 30901; 36415; 80048; 82040; 85025; 99285

== ENCOUNTER 2020-06-26 07:10 | Emergency (ER) | payer MEDICARE ==
[~2020-06-26] VITALS: Ht 190.5 cm; Wt 90.4 kg
--- NOTE | 2020-06-26 07:29 | NUR ---
BIB [facility] FROM HOME AFTER GLF. BRUISING EVIDENT TO LEFT FACE, LEFT ARM, AND BILATERAL LEGS. SKIN TEARS TO LEFT SHOULDER, BILATERAL LEGS. PAIN TO LEFT RING FINGER. LEFT HAND WRAPPED BY EMS DUE TO LACS. PT REPORTS REGULAR BREATHING FOR HIM. USUALLY ON 3L NC AT HOME, SATURATING WELL ON HOME O2 LEVEL.
--- NOTE | 2020-06-26 08:14 | NUR ---
DICK EMT WAS AT BEDSIDE FOR WOUND CARE.
[2020-06-26] MEDS ORDERED: ALBUTEROL SULFATE 2.5 MG/3 ML NPPB ONE (08:30)
[2020-06-26] MEDS ORDERED: ONDANSETRON 2MG/ML, 2ML ONE (08:47)
[2020-06-26] MEDS ORDERED: MORPHINE SULFATE 4 MG/ML, 1ML ONE (08:48)
[2020-06-26] MEDS: MORPHINE SULFATE 4 MG/ML, 1ML IVPush PRN ×2 (08:50→09:08)
[2020-06-26] MEDS ORDERED: ALBUTEROL SULFATE 2.5 MG/3 ML ONE (08:55)
[2020-06-26] MEDS ORDERED: ONDANSETRON 2MG/ML, 2ML IVPush ONE (09:00)
--- NOTE | 2020-06-26 09:03 | NUR ---
IQRA LAWRENCE TECH IN FOR WOUND TX AND TO APPROXIMATE SKIN TEAR FLAPS. PT TOLERATING FAIRLY WELL.
--- NOTE | 2020-06-26 09:36 | NUR ---
BREAK RN: PT RESTING ON GURNEY. LAWRENCE AT BEDSIDE FOR WOUND CARE. CALL LIGHT W/IN REACH.
[2020-06-26] MEDS ORDERED: LIDOCAINE-MPF 1%, 5ML ONE (10:09)
--- NOTE | 2020-06-26 10:10 | NUR ---
LIDO, BETADINE AND SUTURE KIT READY FOR PA AT BEDSIDE.
[2020-06-26] MEDS ORDERED: LIDOCAINE-MPF 1%, 5ML INFIL ONE (10:30)
--- NOTE | 2020-06-26 10:44 | NUR ---
ERNA GARCIA IN FOR SUTURING.
--- NOTE | 2020-06-26 11:38 | NUR ---
MADI AT BEDSIDE FOR VOLAR SPLINTING.
[2020-06-26 12:18] VITALS: BP 120/68
== END 2020-06-26 12:23 | disposition home or self-care (01) ==
LOC: ED 10:22
DX: S62.643A Nondisplaced fracture of proximal phalanx of left middle finger, initial encounter for closed fracture (principal); S62.655A Nondisplaced fracture of middle phalanx of left ring finger, initial encounter for closed fracture; S61.412A Laceration without foreign body of left hand, initial encounter; S09.90XA Unspecified injury of head, initial encounter; I48.91 Unspecified atrial fibrillation; J44.9 Chronic obstructive pulmonary disease, unspecified; I11.0 Hypertensive heart disease with heart failure; I50.9 Heart failure, unspecified; I25.10 Atherosclerotic heart disease of native coronary artery without angina pectoris; I25.2 Old myocardial infarction; Z90.49 Acquired absence of other specified parts of digestive tract; Z87.891 Personal history of nicotine dependence; W18.30XA Fall on same level, unspecified, initial encounter; Y93.89 Activity, other specified; Y92.009 Unspecified place in unspecified non-institutional (private) residence as the place of occurrence of the external cause; Y99.8 Other external cause status
CPT/HCPCS: 12042; 70450; 70486; 73130; 94640; 96374; 96375; 99285; J2270; J2405; J7613

== ENCOUNTER 2020-09-01 11:32 | Emergency (ER) | payer MEDICARE ==
[~2020-09-01] VITALS: Ht 190.5 cm; Wt 72.0 kg
[~2020-09-01 11:32] MED LIST changes: +AMOX-367 PO; +AMOX1TAB64 PO; +BENZ-17 PO; +DEXA2TAB PO; +FURO80TA3 PO; +GUAI400T81 PO; +LACT1CAP35 PO; +STEROID
[2020-09-01 11:37] VITALS: BP 105/51
[2020-09-01] MEDS ORDERED: NEOSPORIN OINT. PKT 1 PACKET ONE ×2 (11:45→11:51)
[2020-09-01] MEDS ORDERED: OXYMETAZOLINE NASAL SPRAY 0.05%,30ML ONE (11:51)
[2020-09-01] MEDS ORDERED: SILVER NITRATE STICK TP ONE ×2 (11:51→12:00)
[2020-09-01] MEDS ORDERED: TRANEXAMIC ACID 100 MG/ML, 10ML ONE (11:51)
[2020-09-01] MEDS ORDERED: LIDOCAINE-MPF 2% ,5ML ONE (11:51)
[2020-09-01] MEDS ORDERED: OXYMETAZOLINE NASAL SPRAY 0.05%, 15ML NAS ONE (12:00)
[2020-09-01] MEDS ORDERED: LIDOCAINE 2%, 10ML INFIL ONE (12:00)
[2020-09-01] MEDS ORDERED: TRANEXAMIC ACID 100 MG/ML, 10ML TP ONE (12:00)
[2020-09-01] MEDS ORDERED: BACITRACIN ZINC OINT 500U/GM, 0.9 GM TP SCH (12:00)
== END 2020-09-01 14:50 | disposition home or self-care (01) ==
LOC: ED 12:19
DX: R04.0 Epistaxis (principal); L03.116 Cellulitis of left lower limb; E11.9 Type 2 diabetes mellitus without complications; I25.2 Old myocardial infarction; I48.91 Unspecified atrial fibrillation; I25.10 Atherosclerotic heart disease of native coronary artery without angina pectoris; I11.0 Hypertensive heart disease with heart failure; I50.9 Heart failure, unspecified; J44.9 Chronic obstructive pulmonary disease, unspecified
CPT/HCPCS: 30901; 99284; J2001

== ENCOUNTER → 2020-09-12 | Outpatient (CLI) | payer MEDICARE | END | disposition home or self-care (01) | LOC: WOUND 12:41 | PROVIDERS: ATTEND Internal Medicine | DX: S80.11XA Contusion of right lower leg, initial encounter (principal); S80.12XA Contusion of left lower leg, initial encounter; A49.01 Methicillin susceptible Staphylococcus aureus infection, unspecified site; F41.9 Anxiety disorder, unspecified; I25.10 Atherosclerotic heart disease of native coronary artery without angina pectoris; L03.116 Cellulitis of left lower limb; D50.9 Iron deficiency anemia, unspecified; I21.A1 Myocardial infarction type 2; I48.0 Paroxysmal atrial fibrillation; I27.20 Pulmonary hypertension, unspecified; J44.0 Chronic obstructive pulmonary disease with (acute) lower respiratory infection; I48.20 Chronic atrial fibrillation, unspecified; J12.82 Pneumonia due to coronavirus disease 2019; E11.22 Type 2 diabetes mellitus with diabetic chronic kidney disease; I13.0 Hypertensive heart and chronic kidney disease with heart failure and stage 1 through stage 4 chronic kidney disease, or unspecified chronic kidney disease; N17.0 Acute kidney failure with tubular necrosis; N18.30 Chronic kidney disease, stage 3 unspecified; I50.33 Acute on chronic diastolic (congestive) heart failure; Z87.891 Personal history of nicotine dependence; Z95.0 Presence of cardiac pacemaker; Z95.2 Presence of prosthetic heart valve; Z86.711 Personal history of pulmonary embolism; Z90.49 Acquired absence of other specified parts of digestive tract; Z95.1 Presence of aortocoronary bypass graft; Z79.01 Long term (current) use of anticoagulants; W19.XXXA Unspecified fall, initial encounter; Y93.89 Activity, other specified; Y92.89 Other specified places as the place of occurrence of the external cause; Y99.8 Other external cause status | CPT/HCPCS: 97597; 97598; G0463 ==

== ENCOUNTER → 2020-09-19 | Outpatient (CLI) | payer MEDICARE | END | disposition home or self-care (01) | LOC: WOUND 13:09 | PROVIDERS: ATTEND Nurse Practitioner Family | DX: S80.11XD Contusion of right lower leg, subsequent encounter (principal); S80.12XD Contusion of left lower leg, subsequent encounter; A49.01 Methicillin susceptible Staphylococcus aureus infection, unspecified site; F41.9 Anxiety disorder, unspecified; I25.10 Atherosclerotic heart disease of native coronary artery without angina pectoris; L03.116 Cellulitis of left lower limb; D50.9 Iron deficiency anemia, unspecified; I21.A1 Myocardial infarction type 2; I48.0 Paroxysmal atrial fibrillation; I27.20 Pulmonary hypertension, unspecified; J44.0 Chronic obstructive pulmonary disease with (acute) lower respiratory infection; I48.20 Chronic atrial fibrillation, unspecified; J12.82 Pneumonia due to coronavirus disease 2019; E11.22 Type 2 diabetes mellitus with diabetic chronic kidney disease; I13.0 Hypertensive heart and chronic kidney disease with heart failure and stage 1 through stage 4 chronic kidney disease, or unspecified chronic kidney disease; N17.0 Acute kidney failure with tubular necrosis; N18.30 Chronic kidney disease, stage 3 unspecified; I50.33 Acute on chronic diastolic (congestive) heart failure; Z87.891 Personal history of nicotine dependence; Z95.0 Presence of cardiac pacemaker; Z95.2 Presence of prosthetic heart valve; Z86.711 Personal history of pulmonary embolism; Z90.49 Acquired absence of other specified parts of digestive tract; Z95.1 Presence of aortocoronary bypass graft; Z20.822 Contact with and (suspected) exposure to COVID-19; Z79.01 Long term (current) use of anticoagulants; W19.XXXD Unspecified fall, subsequent encounter | CPT/HCPCS: 97597; 97598 ==

== ENCOUNTER 2020-09-26 13:16 | Outpatient (CLI) | payer MEDICARE | END 2020-09-26 23:59 | disposition home or self-care (01) | LOC: WOUND 13:16 | PROVIDERS: ATTEND Nurse Practitioner Family | DX: S80.11XD Contusion of right lower leg, subsequent encounter (principal); S80.12XD Contusion of left lower leg, subsequent encounter; S50.02XA Contusion of left elbow, initial encounter; S50.01XA Contusion of right elbow, initial encounter; A49.01 Methicillin susceptible Staphylococcus aureus infection, unspecified site; I25.10 Atherosclerotic heart disease of native coronary artery without angina pectoris; L03.116 Cellulitis of left lower limb; D50.9 Iron deficiency anemia, unspecified; I21.A1 Myocardial infarction type 2; I48.0 Paroxysmal atrial fibrillation; I27.20 Pulmonary hypertension, unspecified; J44.0 Chronic obstructive pulmonary disease with (acute) lower respiratory infection; I48.20 Chronic atrial fibrillation, unspecified; J12.82 Pneumonia due to coronavirus disease 2019; E11.22 Type 2 diabetes mellitus with diabetic chronic kidney disease; I13.0 Hypertensive heart and chronic kidney disease with heart failure and stage 1 through stage 4 chronic kidney disease, or unspecified chronic kidney disease; N17.0 Acute kidney failure with tubular necrosis; N18.30 Chronic kidney disease, stage 3 unspecified; I50.33 Acute on chronic diastolic (congestive) heart failure; F41.9 Anxiety disorder, unspecified; Z87.891 Personal history of nicotine dependence; Z95.0 Presence of cardiac pacemaker; Z95.2 Presence of prosthetic heart valve; Z86.711 Personal history of pulmonary embolism; Z90.49 Acquired absence of other specified parts of digestive tract; Z95.1 Presence of aortocoronary bypass graft; Z20.822 Contact with and (suspected) exposure to COVID-19; Z79.01 Long term (current) use of anticoagulants; W19.XXXD Unspecified fall, subsequent encounter; X58.XXXA Exposure to other specified factors, initial encounter; Y93.89 Activity, other specified; Y92.89 Other specified places as the place of occurrence of the external cause; Y99.8 Other external cause status | CPT/HCPCS: 97597; 97598 ==

== ENCOUNTER 2020-10-03 13:20 | Outpatient (CLI) | payer MEDICARE | END 2020-10-03 23:59 | disposition home or self-care (01) | LOC: WOUND 13:20 | PROVIDERS: ATTEND Nurse Practitioner Family | DX: S80.11XD Contusion of right lower leg, subsequent encounter (principal); S80.12XD Contusion of left lower leg, subsequent encounter; L03.116 Cellulitis of left lower limb; A49.01 Methicillin susceptible Staphylococcus aureus infection, unspecified site; I25.10 Atherosclerotic heart disease of native coronary artery without angina pectoris; D50.9 Iron deficiency anemia, unspecified; I21.A1 Myocardial infarction type 2; I48.0 Paroxysmal atrial fibrillation; I27.20 Pulmonary hypertension, unspecified; J44.0 Chronic obstructive pulmonary disease with (acute) lower respiratory infection; I48.20 Chronic atrial fibrillation, unspecified; J12.82 Pneumonia due to coronavirus disease 2019; E11.22 Type 2 diabetes mellitus with diabetic chronic kidney disease; I13.0 Hypertensive heart and chronic kidney disease with heart failure and stage 1 through stage 4 chronic kidney disease, or unspecified chronic kidney disease; N17.0 Acute kidney failure with tubular necrosis; I50.32 Chronic diastolic (congestive) heart failure; N18.30 Chronic kidney disease, stage 3 unspecified; I50.33 Acute on chronic diastolic (congestive) heart failure; F41.9 Anxiety disorder, unspecified; Z87.891 Personal history of nicotine dependence; Z95.0 Presence of cardiac pacemaker; Z95.2 Presence of prosthetic heart valve; Z86.711 Personal history of pulmonary embolism; Z90.49 Acquired absence of other specified parts of digestive tract; Z95.1 Presence of aortocoronary bypass graft; Z79.01 Long term (current) use of anticoagulants; W19.XXXD Unspecified fall, subsequent encounter | CPT/HCPCS: 97597; 97598 ==

== ENCOUNTER → 2020-10-10 | Outpatient (CLI) | payer MEDICARE | END | disposition home or self-care (01) | LOC: WOUND 13:14 | PROVIDERS: ATTEND Nurse Practitioner Family | DX: S80.11XD Contusion of right lower leg, subsequent encounter (principal); S80.12XD Contusion of left lower leg, subsequent encounter; L03.116 Cellulitis of left lower limb; A49.01 Methicillin susceptible Staphylococcus aureus infection, unspecified site; I25.10 Atherosclerotic heart disease of native coronary artery without angina pectoris; D50.9 Iron deficiency anemia, unspecified; I21.A1 Myocardial infarction type 2; I48.0 Paroxysmal atrial fibrillation; I27.20 Pulmonary hypertension, unspecified; J44.0 Chronic obstructive pulmonary disease with (acute) lower respiratory infection; I48.20 Chronic atrial fibrillation, unspecified; J12.82 Pneumonia due to coronavirus disease 2019; E11.22 Type 2 diabetes mellitus with diabetic chronic kidney disease; I13.0 Hypertensive heart and chronic kidney disease with heart failure and stage 1 through stage 4 chronic kidney disease, or unspecified chronic kidney disease; N17.0 Acute kidney failure with tubular necrosis; I50.32 Chronic diastolic (congestive) heart failure; N18.30 Chronic kidney disease, stage 3 unspecified; I50.33 Acute on chronic diastolic (congestive) heart failure; F41.9 Anxiety disorder, unspecified; Z87.891 Personal history of nicotine dependence; Z95.0 Presence of cardiac pacemaker; Z95.2 Presence of prosthetic heart valve; Z86.711 Personal history of pulmonary embolism; Z90.49 Acquired absence of other specified parts of digestive tract; Z95.1 Presence of aortocoronary bypass graft; Z79.01 Long term (current) use of anticoagulants; W19.XXXD Unspecified fall, subsequent encounter | CPT/HCPCS: 97597; 97598 ==

== ENCOUNTER 2020-10-17 14:38 | Outpatient (CLI) | payer MEDICARE | END 2020-10-17 23:59 | disposition home or self-care (01) | LOC: WOUND 14:38 | PROVIDERS: ATTEND Nurse Practitioner Family | DX: S80.11XD Contusion of right lower leg, subsequent encounter (principal); S80.12XD Contusion of left lower leg, subsequent encounter; J44.9 Chronic obstructive pulmonary disease, unspecified; L03.116 Cellulitis of left lower limb; A49.01 Methicillin susceptible Staphylococcus aureus infection, unspecified site; I25.10 Atherosclerotic heart disease of native coronary artery without angina pectoris; I21.A1 Myocardial infarction type 2; I48.0 Paroxysmal atrial fibrillation; I27.20 Pulmonary hypertension, unspecified; J44.0 Chronic obstructive pulmonary disease with (acute) lower respiratory infection; I48.20 Chronic atrial fibrillation, unspecified; J12.82 Pneumonia due to coronavirus disease 2019; E11.22 Type 2 diabetes mellitus with diabetic chronic kidney disease; I13.0 Hypertensive heart and chronic kidney disease with heart failure and stage 1 through stage 4 chronic kidney disease, or unspecified chronic kidney disease; N17.0 Acute kidney failure with tubular necrosis; N18.30 Chronic kidney disease, stage 3 unspecified; I50.33 Acute on chronic diastolic (congestive) heart failure; F41.9 Anxiety disorder, unspecified; E03.9 Hypothyroidism, unspecified; D50.0 Iron deficiency anemia secondary to blood loss (chronic); Z87.891 Personal history of nicotine dependence; Z95.0 Presence of cardiac pacemaker; Z95.2 Presence of prosthetic heart valve; Z86.711 Personal history of pulmonary embolism; Z90.49 Acquired absence of other specified parts of digestive tract; Z95.1 Presence of aortocoronary bypass graft; Z79.01 Long term (current) use of anticoagulants; Z20.822 Contact with and (suspected) exposure to COVID-19; W19.XXXD Unspecified fall, subsequent encounter | CPT/HCPCS: 97597; 97598; Q4118 ==

== ENCOUNTER → 2020-10-23 | Outpatient (CLI) | payer MEDICARE | END | disposition home or self-care (01) | LOC: WOUND 13:38 | PROVIDERS: ATTEND Nurse Practitioner Family | DX: S80.11XD Contusion of right lower leg, subsequent encounter (principal); S80.12XD Contusion of left lower leg, subsequent encounter; J44.9 Chronic obstructive pulmonary disease, unspecified; I50.32 Chronic diastolic (congestive) heart failure; L03.116 Cellulitis of left lower limb; A49.01 Methicillin susceptible Staphylococcus aureus infection, unspecified site; I25.10 Atherosclerotic heart disease of native coronary artery without angina pectoris; D50.9 Iron deficiency anemia, unspecified; I21.A1 Myocardial infarction type 2; I48.0 Paroxysmal atrial fibrillation; I27.20 Pulmonary hypertension, unspecified; J44.0 Chronic obstructive pulmonary disease with (acute) lower respiratory infection; I48.20 Chronic atrial fibrillation, unspecified; J12.82 Pneumonia due to coronavirus disease 2019; E11.22 Type 2 diabetes mellitus with diabetic chronic kidney disease; I13.0 Hypertensive heart and chronic kidney disease with heart failure and stage 1 through stage 4 chronic kidney disease, or unspecified chronic kidney disease; N17.0 Acute kidney failure with tubular necrosis; N18.30 Chronic kidney disease, stage 3 unspecified; I50.33 Acute on chronic diastolic (congestive) heart failure; F41.9 Anxiety disorder, unspecified; Z87.891 Personal history of nicotine dependence; Z95.0 Presence of cardiac pacemaker; Z95.2 Presence of prosthetic heart valve; Z86.711 Personal history of pulmonary embolism; Z90.49 Acquired absence of other specified parts of digestive tract; Z95.1 Presence of aortocoronary bypass graft; Z79.01 Long term (current) use of anticoagulants; W19.XXXD Unspecified fall, subsequent encounter | CPT/HCPCS: 97597 ==

== ENCOUNTER 2020-10-31 09:36 | Outpatient (CLI) | payer MEDICARE | END 2020-10-31 23:59 | disposition home or self-care (01) | LOC: WOUND 09:36 | PROVIDERS: ATTEND Internal Medicine Infectious Disease | DX: S80.11XD Contusion of right lower leg, subsequent encounter (principal); S80.12XD Contusion of left lower leg, subsequent encounter; L03.116 Cellulitis of left lower limb; J44.9 Chronic obstructive pulmonary disease, unspecified; A49.01 Methicillin susceptible Staphylococcus aureus infection, unspecified site; I25.10 Atherosclerotic heart disease of native coronary artery without angina pectoris; D50.9 Iron deficiency anemia, unspecified; I21.A1 Myocardial infarction type 2; I48.0 Paroxysmal atrial fibrillation; I27.20 Pulmonary hypertension, unspecified; J44.0 Chronic obstructive pulmonary disease with (acute) lower respiratory infection; I48.20 Chronic atrial fibrillation, unspecified; J12.82 Pneumonia due to coronavirus disease 2019; E11.22 Type 2 diabetes mellitus with diabetic chronic kidney disease; I13.0 Hypertensive heart and chronic kidney disease with heart failure and stage 1 through stage 4 chronic kidney disease, or unspecified chronic kidney disease; I50.32 Chronic diastolic (congestive) heart failure; N17.0 Acute kidney failure with tubular necrosis; N18.30 Chronic kidney disease, stage 3 unspecified; I50.33 Acute on chronic diastolic (congestive) heart failure; F41.9 Anxiety disorder, unspecified; E03.9 Hypothyroidism, unspecified; Z87.891 Personal history of nicotine dependence; Z95.0 Presence of cardiac pacemaker; Z95.2 Presence of prosthetic heart valve; Z86.711 Personal history of pulmonary embolism; Z90.49 Acquired absence of other specified parts of digestive tract; Z95.1 Presence of aortocoronary bypass graft; Z79.01 Long term (current) use of anticoagulants; W19.XXXD Unspecified fall, subsequent encounter | CPT/HCPCS: 97597 ==

== ENCOUNTER 2020-11-07 09:50 | Outpatient (CLI) | payer MEDICARE | END 2020-11-07 23:59 | disposition home or self-care (01) | LOC: WOUND 09:50 | PROVIDERS: ATTEND Internal Medicine Infectious Disease | DX: S80.11XD Contusion of right lower leg, subsequent encounter (principal); S80.12XD Contusion of left lower leg, subsequent encounter; L03.116 Cellulitis of left lower limb; I50.32 Chronic diastolic (congestive) heart failure; J44.9 Chronic obstructive pulmonary disease, unspecified; A49.01 Methicillin susceptible Staphylococcus aureus infection, unspecified site; I25.10 Atherosclerotic heart disease of native coronary artery without angina pectoris; I21.A1 Myocardial infarction type 2; I48.0 Paroxysmal atrial fibrillation; I27.20 Pulmonary hypertension, unspecified; J44.0 Chronic obstructive pulmonary disease with (acute) lower respiratory infection; I48.20 Chronic atrial fibrillation, unspecified; J12.82 Pneumonia due to coronavirus disease 2019; E11.22 Type 2 diabetes mellitus with diabetic chronic kidney disease; I13.0 Hypertensive heart and chronic kidney disease with heart failure and stage 1 through stage 4 chronic kidney disease, or unspecified chronic kidney disease; N17.0 Acute kidney failure with tubular necrosis; N18.30 Chronic kidney disease, stage 3 unspecified; I50.33 Acute on chronic diastolic (congestive) heart failure; F41.9 Anxiety disorder, unspecified; E03.9 Hypothyroidism, unspecified; D50.0 Iron deficiency anemia secondary to blood loss (chronic); Z87.891 Personal history of nicotine dependence; Z95.0 Presence of cardiac pacemaker; Z95.2 Presence of prosthetic heart valve; Z86.711 Personal history of pulmonary embolism; Z90.49 Acquired absence of other specified parts of digestive tract; Z95.1 Presence of aortocoronary bypass graft; Z79.01 Long term (current) use of anticoagulants; Z20.822 Contact with and (suspected) exposure to COVID-19; W19.XXXD Unspecified fall, subsequent encounter | CPT/HCPCS: 15271; Q4101 ==

== ENCOUNTER → 2020-11-14 | Outpatient (CLI) | payer MEDICARE | END | disposition home or self-care (01) | LOC: WOUND 10:17 | PROVIDERS: ATTEND Internal Medicine Cardiovascular Disease | DX: S80.11XD Contusion of right lower leg, subsequent encounter (principal); S80.12XD Contusion of left lower leg, subsequent encounter; L03.116 Cellulitis of left lower limb; J44.9 Chronic obstructive pulmonary disease, unspecified; A49.01 Methicillin susceptible Staphylococcus aureus infection, unspecified site; I25.10 Atherosclerotic heart disease of native coronary artery without angina pectoris; I21.A1 Myocardial infarction type 2; I48.0 Paroxysmal atrial fibrillation; I27.20 Pulmonary hypertension, unspecified; J44.0 Chronic obstructive pulmonary disease with (acute) lower respiratory infection; I48.20 Chronic atrial fibrillation, unspecified; J12.82 Pneumonia due to coronavirus disease 2019; E11.22 Type 2 diabetes mellitus with diabetic chronic kidney disease; I13.0 Hypertensive heart and chronic kidney disease with heart failure and stage 1 through stage 4 chronic kidney disease, or unspecified chronic kidney disease; N17.0 Acute kidney failure with tubular necrosis; N18.30 Chronic kidney disease, stage 3 unspecified; I50.33 Acute on chronic diastolic (congestive) heart failure; F41.9 Anxiety disorder, unspecified; E03.9 Hypothyroidism, unspecified; Z87.891 Personal history of nicotine dependence; D50.0 Iron deficiency anemia secondary to blood loss (chronic); Z95.0 Presence of cardiac pacemaker; Z95.2 Presence of prosthetic heart valve; Z86.711 Personal history of pulmonary embolism; Z90.49 Acquired absence of other specified parts of digestive tract; Z95.1 Presence of aortocoronary bypass graft; Z79.01 Long term (current) use of anticoagulants; W19.XXXD Unspecified fall, subsequent encounter; Z20.822 Contact with and (suspected) exposure to COVID-19 | CPT/HCPCS: G0463 ==

== ENCOUNTER → 2020-11-21 | Outpatient (CLI) | payer MEDICARE | END | disposition home or self-care (01) | LOC: WOUND 12:49 | PROVIDERS: ATTEND Nurse Practitioner Family | DX: S80.11XD Contusion of right lower leg, subsequent encounter (principal); S80.12XD Contusion of left lower leg, subsequent encounter; L03.116 Cellulitis of left lower limb; J44.9 Chronic obstructive pulmonary disease, unspecified; A49.01 Methicillin susceptible Staphylococcus aureus infection, unspecified site; I25.10 Atherosclerotic heart disease of native coronary artery without angina pectoris; I21.A1 Myocardial infarction type 2; I48.0 Paroxysmal atrial fibrillation; I27.20 Pulmonary hypertension, unspecified; J44.0 Chronic obstructive pulmonary disease with (acute) lower respiratory infection; I48.20 Chronic atrial fibrillation, unspecified; J12.82 Pneumonia due to coronavirus disease 2019; E11.22 Type 2 diabetes mellitus with diabetic chronic kidney disease; I13.0 Hypertensive heart and chronic kidney disease with heart failure and stage 1 through stage 4 chronic kidney disease, or unspecified chronic kidney disease; N17.0 Acute kidney failure with tubular necrosis; N18.30 Chronic kidney disease, stage 3 unspecified; I50.33 Acute on chronic diastolic (congestive) heart failure; F41.9 Anxiety disorder, unspecified; E03.9 Hypothyroidism, unspecified; Z87.891 Personal history of nicotine dependence; D50.0 Iron deficiency anemia secondary to blood loss (chronic); Z95.0 Presence of cardiac pacemaker; Z95.2 Presence of prosthetic heart valve; Z86.711 Personal history of pulmonary embolism; Z90.49 Acquired absence of other specified parts of digestive tract; Z95.1 Presence of aortocoronary bypass graft; Z79.01 Long term (current) use of anticoagulants; Z20.822 Contact with and (suspected) exposure to COVID-19; W19.XXXD Unspecified fall, subsequent encounter | CPT/HCPCS: 15271; 97597; Q4101 ==

== ENCOUNTER 2020-11-26 15:40 | Inpatient (IN) | payer MEDICARE ==
[~2020-11-26] VITALS: Ht 190.5 cm; Wt 78.9 kg
--- NOTE | 2020-11-26 16:04 | NUR ---
PT CAME IN [place] SOB THAT STARTED ABOUT 3 DAYS AGO. PT HAS HX OF COPD AND 4 LITERS NC IS BASELINE. PT ALSO HAD A SEVERE NOSEBLEED LAST FRIDAY AND CURRENTLY HAS A BALLOON IN THE RIGHT NARE. "THEY SAID TO COME TO [facility] ON FRIDAY TO GET IT OUT". [place] CONNECTED TO ALL MONITORING EQUIPMENT. EKG COMPLETE. RESTING IN [facility]. IS BEDSIDE
[2020-11-26] MEDS ORDERED: ALBUTEROL/IPRATROPIUM 2.5MG/0.5MG, 3 ML ONE (16:47)
--- NOTE | 2020-11-26 16:52 | NUR ---
PT GIVEN BREATHING TX. TOLERATING WELL
[2020-11-26] MEDS ORDERED: ALBUTEROL/IPRATROPIUM 2.5MG/0.5MG, 3 ML NPPB SCH (17:00)
[2020-11-26] MEDS ORDERED: CEFTRIAXONE 1,000 MG in DEXTROSE 5% 50 ML IVPB ONE (18:00)
[2020-11-26] MEDS ORDERED: SODIUM CHLORIDE FLUSH 10ML SYR IVF ONE (18:00)
[2020-11-26 18:27] LABS: BASOPHILS % (AUTO) 1 % (0-1); EOSINOPHILS % (AUTO) 0 % (1-7); LYMPHOCYTES % (AUTO) 2 % (22-44); MEAN CORPUSCULAR HEMOGLOBIN 23.4 pg (27.5-34.5); MEAN CORPUSCULAR HGB CONC 30.9 g/dL (33.2-36.2); MEAN PLATELET VOLUME 7.6 fL (7.4-10.4); MONOCYTES % (AUTO) 4 % (2-9); NEUTROPHILS % (AUTO) 93 % (42-75); PLATELET COUNT 232 x10^3/uL (130-400); RED BLOOD COUNT 3.86 x10^6/uL (4.38-5.82); RED CELL DISTRIBUTION WIDTH 18.7 % (9.4-14.8)
[2020-11-26 18:40] LABS: ALBUMIN 3.6 g/dL (3.4-5.0); ANION GAP 6 mmol/L (5-15); CALCIUM 9.3 mg/dL (8.5-10.1); CHLORIDE 93 mmol/L (98-107)
[2020-11-26 18:44] LABS: ALANINE AMINOTRANSFERASE 22 U/L (12-78); ALKALINE PHOSPHATASE 69 U/L (45-117); BILIRUBIN,TOTAL 0.7 mg/dL (0.2-1.0); CREATININE 1.29 mg/dL (0.7-1.3); TOTAL PROTEIN 6.8 g/dL (6.4-8.2)
[2020-11-26 18:46] LABS: ANISOCYTOSIS 1+
[2020-11-26 18:47] LABS: MICROCYTOSIS 1+; OVALOCYTES 1+; POLYCHROMASIA 1+
[2020-11-26 18:48] LABS: <PLATELET ESTIMATE> ADEQUATE; <PLT MORPHOLOGY> NORMAL PLT MORPH; HYPOCHROMIA 1+
[2020-11-26 19:42] VITALS: BP 110/65
[2020-11-26] MEDS ORDERED: PANT40TA6 PO (20:18)
[2020-11-26] MEDS ORDERED: TIOT18CA PO (20:18)
[2020-11-26] MEDS ORDERED: METO2.5T PO (20:18)
[2020-11-26] MEDS ORDERED: PRED5TAB19 PO (20:18)
[2020-11-26] MEDS ORDERED: POTA20TA91 PO (20:18)
[2020-11-26] MEDS ORDERED: DOCUSATE 100 MG CAPSULE PO PRN (21:00)
[2020-11-26] MEDS ORDERED: ACETAMINOPHEN 325 MG TABLET PO PRN (21:00)
[2020-11-26] MEDS ORDERED: METOLAZONE 2.5 MG TABLET PO SCH (21:00)
[2020-11-26] MEDS ORDERED: MELATONIN 5 MG TABLET PO PRN (21:00)
[2020-11-26] MEDS: APIXABAN 5 MG TABLET PO SCH (21:23)
[2020-11-26] MEDS: ATORVASTATIN 10 MG TABLET PO SCH (21:23)
[2020-11-26] MEDS: BUSPIRONE 5 MG TABLET PO SCH (21:23)
[2020-11-26] MEDS ORDERED: ALBUTEROL SULFATE 2.5 MG/3 ML NPPB PRN (21:30)
[2020-11-26] MEDS ORDERED: SODIUM CHLORIDE NASAL SPRAY 45ML BOTTLE NAS PRN (22:00)
[2020-11-26 22:26] VITALS: BP 110/65
[2020-11-27 01:20] VITALS: BP 120/72
[2020-11-27] MEDS: ALBUTEROL/IPRATROPIUM 2.5MG/0.5MG, 3 ML NPPB SCH ×4 (03:00→19:49)
[2020-11-27 06:07] LABS: ANION GAP 7 mmol/L (5-15); CHLORIDE 95 mmol/L (98-107); CREATININE 1.28 mg/dL (0.7-1.3)
[2020-11-27 06:08] LABS: BASOPHILS % (AUTO) 1 % (0-1); EOSINOPHILS % (AUTO) 4 % (1-7); LYMPHOCYTES % (AUTO) 5 % (22-44); MEAN CORPUSCULAR HEMOGLOBIN 24.3 pg (27.5-34.5); MEAN CORPUSCULAR HGB CONC 31.9 g/dL (33.2-36.2); MEAN PLATELET VOLUME 7.8 fL (7.4-10.4); MONOCYTES % (AUTO) 8 % (2-9); NEUTROPHILS % (AUTO) 82 % (42-75); PLATELET COUNT 217 x10^3/uL (130-400); RED BLOOD COUNT 3.73 x10^6/uL (4.38-5.82); RED CELL DISTRIBUTION WIDTH 18.6 % (9.4-14.8)
[2020-11-27 07:11] VITALS: BP 107/67
[2020-11-27] MEDS: BUDESONIDE 0.5 MG/2 ML INHA NPPB SCH ×2 (07:15→19:49)
[2020-11-27] MEDS: PANTOPRAZOLE 40MG TABLET PO SCH ×3 (08:18→16:05)
[2020-11-27] MEDS ORDERED: ASCORBIC ACID 500 MG TABLET ONE (08:56)
[2020-11-27] MEDS: ASCORBIC ACID 250 MG TAB PO SCH (08:59)
[2020-11-27] MEDS ORDERED: FORMOTEROL HOMEINH SCH (09:00)
[2020-11-27] MEDS: SERTRALINE 50MG TABLET PO SCH (09:00)
[2020-11-27] MEDS: DOXYCYCLINE 100MG TABLET PO SCH ×2 (09:00→21:06)
[2020-11-27] MEDS ORDERED: GUAIFENESIN 200 MG TABLET PO SCH (09:00)
[2020-11-27] MEDS: BUSPIRONE 5 MG TABLET PO SCH ×2 (09:00→21:06)
[2020-11-27] MEDS ORDERED: MOMETASONE HOMEINH SCH (09:00)
[2020-11-27] MEDS: DIGOXIN 0.125 MG TABLET PO SCH (09:00)
[2020-11-27] MEDS: POTASSIUM CHLORIDE 20 MEQ TAB.ER.PRT PO SCH (09:00)
[2020-11-27] MEDS ORDERED: TIOTROPIUM BROMIDE 18 MCG/INH INH SCH (09:00)
[2020-11-27] MEDS: APIXABAN 5 MG TABLET PO SCH ×2 (09:00→21:06)
[2020-11-27] MEDS: FUROSEMIDE 20 MG TABLET PO SCH (09:01)
[2020-11-27] MEDS: CHOLECALCIFEROL 1,000 UNIT TABLET PO SCH (09:01)
[2020-11-27] MEDS: SPIRONOLACTONE 25 MG TABLET PO SCH (09:03)
[2020-11-27] MEDS: AMOXICILLIN/CLAV 875-125MG TABLET PO SCH ×2 (09:40→21:06)
[2020-11-27 13:21] VITALS: BP 110/65
[2020-11-27 18:24] LABS: MICROSCOPIC NOT IND
[2020-11-27 19:24] VITALS: BP 118/61
[2020-11-27] MEDS: GUAIFENESIN ER 600 MG TABLET PO SCH (21:06)
[2020-11-27] MEDS: ATORVASTATIN 10 MG TABLET PO SCH (21:06)
[2020-11-28 01:38] VITALS: BP 118/77
[2020-11-28] MEDS: ALBUTEROL/IPRATROPIUM 2.5MG/0.5MG, 3 ML NPPB SCH ×4 (02:30→20:05)
[2020-11-28] MEDS: BUDESONIDE 0.5 MG/2 ML INHA NPPB SCH ×2 (06:34→20:05)
[2020-11-28 07:03] VITALS: BP 106/58
[2020-11-28] MEDS ORDERED: ASCORBIC ACID 500 MG TABLET ONE (08:17)
[2020-11-28] MEDS: SPIRONOLACTONE 25 MG TABLET PO SCH (08:18)
[2020-11-28] MEDS: AMOXICILLIN/CLAV 875-125MG TABLET PO SCH ×2 (08:18→21:21)
[2020-11-28] MEDS: BUSPIRONE 5 MG TABLET PO SCH ×2 (08:19→21:21)
[2020-11-28] MEDS: DOXYCYCLINE 100MG TABLET PO SCH ×2 (08:19→21:21)
[2020-11-28] MEDS: FUROSEMIDE 20 MG TABLET PO SCH (08:19)
[2020-11-28] MEDS: PANTOPRAZOLE 40MG TABLET PO SCH ×3 (08:19→16:05)
[2020-11-28] MEDS: DIGOXIN 0.125 MG TABLET PO SCH (08:19)
[2020-11-28] MEDS: POTASSIUM CHLORIDE 20 MEQ TAB.ER.PRT PO SCH (08:19)
[2020-11-28] MEDS: SERTRALINE 50MG TABLET PO SCH (08:19)
[2020-11-28] MEDS: APIXABAN 5 MG TABLET PO SCH ×2 (08:19→21:21)
[2020-11-28] MEDS: CHOLECALCIFEROL 1,000 UNIT TABLET PO SCH (08:19)
[2020-11-28] MEDS: ASCORBIC ACID 250 MG TAB PO SCH (08:20)
[2020-11-28] MEDS: GUAIFENESIN ER 600 MG TABLET PO SCH ×2 (08:20→21:21)
[2020-11-28 12:40] VITALS: BP 117/70
[2020-11-28 18:55] VITALS: BP 121/61
[2020-11-28] MEDS: ATORVASTATIN 10 MG TABLET PO SCH (21:21)
[2020-11-29 00:52] VITALS: BP 126/71
[2020-11-29] MEDS: ALBUTEROL/IPRATROPIUM 2.5MG/0.5MG, 3 ML NPPB SCH ×2 (03:25→09:40)
[2020-11-29 07:18] VITALS: BP 133/72
[2020-11-29] MEDS ORDERED: ASCORBIC ACID 500 MG TABLET ONE (07:45)
[2020-11-29] MEDS: GUAIFENESIN ER 600 MG TABLET PO SCH (08:12)
[2020-11-29] MEDS: APIXABAN 5 MG TABLET PO SCH (08:12)
[2020-11-29] MEDS: AMOXICILLIN/CLAV 875-125MG TABLET PO SCH (08:12)
[2020-11-29] MEDS: FUROSEMIDE 20 MG TABLET PO SCH (08:12)
[2020-11-29] MEDS: SERTRALINE 50MG TABLET PO SCH (08:12)
[2020-11-29] MEDS: CHOLECALCIFEROL 1,000 UNIT TABLET PO SCH (08:12)
[2020-11-29] MEDS: BUSPIRONE 5 MG TABLET PO SCH (08:12)
[2020-11-29] MEDS: DOXYCYCLINE 100MG TABLET PO SCH (08:12)
[2020-11-29] MEDS: SPIRONOLACTONE 25 MG TABLET PO SCH (08:13)
[2020-11-29] MEDS: POTASSIUM CHLORIDE 20 MEQ TAB.ER.PRT PO SCH (08:13)
[2020-11-29] MEDS: ASCORBIC ACID 250 MG TAB PO SCH (08:13)
[2020-11-29] MEDS: PANTOPRAZOLE 40MG TABLET PO SCH (08:13)
[2020-11-29] MEDS: DIGOXIN 0.125 MG TABLET PO SCH (08:13)
[2020-11-29] MEDS ORDERED: METH4TAB PO (09:13)
[2020-11-29] MEDS ORDERED: DOXY100T PO (09:13)
[2020-11-29] MEDS ORDERED: AMOX1TAB12 PO (09:13)
[2020-11-29] MEDS ORDERED: GUAI600T31 PO (09:13)
[2020-11-29] MEDS: BUDESONIDE 0.5 MG/2 ML INHA NPPB SCH (09:40)
== END 2020-11-29 11:15 | disposition home or self-care (01) | DRG 193 ==
LOC: ED 18:54 → EDIP 19:18 → 5SO 20:25 → DCLOUNGE 11-29 11:07
PROVIDERS: ADMIT Internal Medicine; ATTEND Internal Medicine
DX: J18.9 Pneumonia, unspecified organism (principal); J96.20 Acute and chronic respiratory failure, unspecified whether with hypoxia or hypercapnia; J44.1 Chronic obstructive pulmonary disease with (acute) exacerbation; D62 Acute posthemorrhagic anemia; J44.0 Chronic obstructive pulmonary disease with (acute) lower respiratory infection; D68.69 Other thrombophilia; I50.30 Unspecified diastolic (congestive) heart failure; I48.0 Paroxysmal atrial fibrillation; E11.9 Type 2 diabetes mellitus without complications; I11.0 Hypertensive heart disease with heart failure; I25.10 Atherosclerotic heart disease of native coronary artery without angina pectoris; I25.2 Old myocardial infarction; Z79.01 Long term (current) use of anticoagulants; Z95.1 Presence of aortocoronary bypass graft; Z95.2 Presence of prosthetic heart valve; Z99.81 Dependence on supplemental oxygen
CPT/HCPCS: 36415; 71045; 80048; 80053; 80162; 81003; 83540; 83550; 83605; 83735; 84100; 85025; 86850; 86900; 86923; 87040; 93005; 94640; 96365; G0378; J0696; J7509; J7626; J7512

== ENCOUNTER 2020-12-06 14:09 | Outpatient (CLI) | payer MEDICARE ==
[~2020-12-06 14:09] MED LIST changes: +AMOX1TAB12 PO; +GUAI600T31 PO; +METH4TAB PO; +POTA20TA91 PO; +PRED5TAB19 PO; +TIOT18CA PO
[2020-12-11] MEDS ORDERED: SERT100T32 PO (23:48)
[2020-12-11] MEDS ORDERED: ALEN70TA77 PO (23:48)
[2020-12-11] MEDS ORDERED: BUSP10TA PO (23:48)
[2020-12-11] MEDS ORDERED: PRED10TA PO (23:49)
[2020-12-13] MEDS ORDERED: AMOX1TAB64 PO (12:59)
== END 2020-12-06 23:59 | disposition home or self-care (01) ==
LOC: WOUND 14:09
PROVIDERS: ATTEND Nurse Practitioner Family
DX: S81.802D Unspecified open wound, left lower leg, subsequent encounter (principal); S81.801D Unspecified open wound, right lower leg, subsequent encounter; J44.9 Chronic obstructive pulmonary disease, unspecified; I25.2 Old myocardial infarction; I25.10 Atherosclerotic heart disease of native coronary artery without angina pectoris; K21.9 Gastro-esophageal reflux disease without esophagitis; E78.5 Hyperlipidemia, unspecified; I11.0 Hypertensive heart disease with heart failure; I50.32 Chronic diastolic (congestive) heart failure; I48.0 Paroxysmal atrial fibrillation; E11.9 Type 2 diabetes mellitus without complications; F41.9 Anxiety disorder, unspecified; F32.9 Major depressive disorder, single episode, unspecified; Z87.01 Personal history of pneumonia (recurrent); Z87.891 Personal history of nicotine dependence; Z86.718 Personal history of other venous thrombosis and embolism; Z95.1 Presence of aortocoronary bypass graft; Z95.4 Presence of other heart-valve replacement; Z79.899 Other long term (current) drug therapy; Z90.49 Acquired absence of other specified parts of digestive tract; W19.XXXD Unspecified fall, subsequent encounter
CPT/HCPCS: 15271; 97597; Q4101

== ENCOUNTER 2020-12-22 13:53 | Outpatient (CLI) | payer MEDICARE ==
[~2020-12-22 13:53] MED LIST changes: +ALEN70TA77 PO; +BUSP10TA PO; +SERT100T32 PO
== END 2020-12-22 23:59 | disposition home or self-care (01) ==
LOC: WOUND 13:53
PROVIDERS: ATTEND Internal Medicine
DX: S81.802D Unspecified open wound, left lower leg, subsequent encounter (principal); S81.801D Unspecified open wound, right lower leg, subsequent encounter; S80.12XD Contusion of left lower leg, subsequent encounter; S80.11XD Contusion of right lower leg, subsequent encounter; J44.9 Chronic obstructive pulmonary disease, unspecified; I25.2 Old myocardial infarction; I25.10 Atherosclerotic heart disease of native coronary artery without angina pectoris; K21.9 Gastro-esophageal reflux disease without esophagitis; E78.5 Hyperlipidemia, unspecified; I11.0 Hypertensive heart disease with heart failure; I50.32 Chronic diastolic (congestive) heart failure; I87.8 Other specified disorders of veins; I48.0 Paroxysmal atrial fibrillation; E11.9 Type 2 diabetes mellitus without complications; F41.9 Anxiety disorder, unspecified; F32.9 Major depressive disorder, single episode, unspecified; Z87.01 Personal history of pneumonia (recurrent); Z87.891 Personal history of nicotine dependence; Z86.718 Personal history of other venous thrombosis and embolism; Z95.1 Presence of aortocoronary bypass graft; Z95.4 Presence of other heart-valve replacement; Z79.01 Long term (current) use of anticoagulants; Z79.899 Other long term (current) drug therapy; Z90.49 Acquired absence of other specified parts of digestive tract; W19.XXXD Unspecified fall, subsequent encounter; X58.XXXD Exposure to other specified factors, subsequent encounter
CPT/HCPCS: 15271; Q4101

== ENCOUNTER 2020-12-29 13:06 | Outpatient (CLI) | payer MEDICARE | END 2020-12-29 23:59 | disposition home or self-care (01) | LOC: WOUND 13:06 | PROVIDERS: ATTEND Internal Medicine | DX: S81.802D Unspecified open wound, left lower leg, subsequent encounter (principal); S80.11XD Contusion of right lower leg, subsequent encounter; S80.12XD Contusion of left lower leg, subsequent encounter; J44.9 Chronic obstructive pulmonary disease, unspecified; I25.2 Old myocardial infarction; I25.10 Atherosclerotic heart disease of native coronary artery without angina pectoris; K21.9 Gastro-esophageal reflux disease without esophagitis; E78.5 Hyperlipidemia, unspecified; I11.0 Hypertensive heart disease with heart failure; I50.32 Chronic diastolic (congestive) heart failure; I48.0 Paroxysmal atrial fibrillation; E11.9 Type 2 diabetes mellitus without complications; F41.9 Anxiety disorder, unspecified; F32.9 Major depressive disorder, single episode, unspecified; Z87.01 Personal history of pneumonia (recurrent); Z87.891 Personal history of nicotine dependence; Z86.718 Personal history of other venous thrombosis and embolism; Z95.1 Presence of aortocoronary bypass graft; Z95.4 Presence of other heart-valve replacement; Z79.01 Long term (current) use of anticoagulants; Z79.899 Other long term (current) drug therapy; Z90.49 Acquired absence of other specified parts of digestive tract; W19.XXXD Unspecified fall, subsequent encounter; X58.XXXD Exposure to other specified factors, subsequent encounter | CPT/HCPCS: 97597 ==

== ENCOUNTER 2021-01-12 08:34 | Outpatient (CLI) | payer MEDICARE | END 2021-01-12 23:59 | disposition home or self-care (01) | LOC: WOUND 08:34 | PROVIDERS: ATTEND Internal Medicine | DX: S81.812D Laceration without foreign body, left lower leg, subsequent encounter (principal); S80.12XD Contusion of left lower leg, subsequent encounter; S80.11XD Contusion of right lower leg, subsequent encounter; J44.9 Chronic obstructive pulmonary disease, unspecified; I25.2 Old myocardial infarction; I25.10 Atherosclerotic heart disease of native coronary artery without angina pectoris; K21.9 Gastro-esophageal reflux disease without esophagitis; E78.5 Hyperlipidemia, unspecified; I11.0 Hypertensive heart disease with heart failure; I50.32 Chronic diastolic (congestive) heart failure; I48.0 Paroxysmal atrial fibrillation; E11.9 Type 2 diabetes mellitus without complications; F41.9 Anxiety disorder, unspecified; F32.9 Major depressive disorder, single episode, unspecified; Z87.01 Personal history of pneumonia (recurrent); Z87.891 Personal history of nicotine dependence; Z86.718 Personal history of other venous thrombosis and embolism; Z95.1 Presence of aortocoronary bypass graft; Z95.4 Presence of other heart-valve replacement; Z79.01 Long term (current) use of anticoagulants; Z79.899 Other long term (current) drug therapy; Z90.49 Acquired absence of other specified parts of digestive tract; X58.XXXD Exposure to other specified factors, subsequent encounter; W19.XXXD Unspecified fall, subsequent encounter | CPT/HCPCS: 97597 ==

== ENCOUNTER → 2021-01-31 | Outpatient (CLI) | payer MEDICARE | END | disposition home or self-care (01) | LOC: WOUND 14:51 | PROVIDERS: ATTEND Internal Medicine | DX: S81.812A Laceration without foreign body, left lower leg, initial encounter (principal); S51.812A Laceration without foreign body of left forearm, initial encounter; S80.12XD Contusion of left lower leg, subsequent encounter; J44.9 Chronic obstructive pulmonary disease, unspecified; I25.2 Old myocardial infarction; I25.10 Atherosclerotic heart disease of native coronary artery without angina pectoris; K21.9 Gastro-esophageal reflux disease without esophagitis; E78.5 Hyperlipidemia, unspecified; I11.0 Hypertensive heart disease with heart failure; I50.32 Chronic diastolic (congestive) heart failure; I48.0 Paroxysmal atrial fibrillation; E11.9 Type 2 diabetes mellitus without complications; F41.9 Anxiety disorder, unspecified; F32.9 Major depressive disorder, single episode, unspecified; Z87.01 Personal history of pneumonia (recurrent); Z87.891 Personal history of nicotine dependence; Z86.718 Personal history of other venous thrombosis and embolism; Z95.1 Presence of aortocoronary bypass graft; Z95.4 Presence of other heart-valve replacement; Z79.01 Long term (current) use of anticoagulants; Z79.899 Other long term (current) drug therapy; Z90.49 Acquired absence of other specified parts of digestive tract; W19.XXXD Unspecified fall, subsequent encounter; X58.XXXA Exposure to other specified factors, initial encounter; Y93.89 Activity, other specified; Y92.89 Other specified places as the place of occurrence of the external cause; Y99.8 Other external cause status | CPT/HCPCS: 97597 ==

== ENCOUNTER 2021-02-07 11:00 | Outpatient (CLI) | payer MEDICARE | END 2021-02-07 23:59 | disposition home or self-care (01) | LOC: WOUND 11:00 | PROVIDERS: ATTEND Internal Medicine | DX: S81.812D Laceration without foreign body, left lower leg, subsequent encounter (principal); S80.11XD Contusion of right lower leg, subsequent encounter; S80.12XD Contusion of left lower leg, subsequent encounter; J44.9 Chronic obstructive pulmonary disease, unspecified; I25.2 Old myocardial infarction; I25.10 Atherosclerotic heart disease of native coronary artery without angina pectoris; K21.9 Gastro-esophageal reflux disease without esophagitis; E78.5 Hyperlipidemia, unspecified; I11.0 Hypertensive heart disease with heart failure; I50.32 Chronic diastolic (congestive) heart failure; I48.0 Paroxysmal atrial fibrillation; E11.9 Type 2 diabetes mellitus without complications; F41.9 Anxiety disorder, unspecified; F32.9 Major depressive disorder, single episode, unspecified; X58.XXXD Exposure to other specified factors, subsequent encounter | CPT/HCPCS: 97597 ==

== ENCOUNTER 2021-02-14 11:14 | Outpatient (CLI) | payer MEDICARE | END 2021-02-14 23:59 | disposition home or self-care (01) | LOC: WOUND 11:14 | PROVIDERS: ATTEND Internal Medicine | DX: S81.812D Laceration without foreign body, left lower leg, subsequent encounter (principal); S80.11XD Contusion of right lower leg, subsequent encounter; S80.12XD Contusion of left lower leg, subsequent encounter; J44.9 Chronic obstructive pulmonary disease, unspecified; I25.2 Old myocardial infarction; I25.10 Atherosclerotic heart disease of native coronary artery without angina pectoris; K21.9 Gastro-esophageal reflux disease without esophagitis; E78.5 Hyperlipidemia, unspecified; I11.0 Hypertensive heart disease with heart failure; I50.32 Chronic diastolic (congestive) heart failure; I48.0 Paroxysmal atrial fibrillation; E11.9 Type 2 diabetes mellitus without complications; F41.9 Anxiety disorder, unspecified; F32.9 Major depressive disorder, single episode, unspecified; Z87.01 Personal history of pneumonia (recurrent); Z87.891 Personal history of nicotine dependence; Z86.718 Personal history of other venous thrombosis and embolism; Z95.1 Presence of aortocoronary bypass graft; Z95.4 Presence of other heart-valve replacement; Z79.01 Long term (current) use of anticoagulants; Z79.899 Other long term (current) drug therapy; Z90.49 Acquired absence of other specified parts of digestive tract; W19.XXXD Unspecified fall, subsequent encounter; X58.XXXD Exposure to other specified factors, subsequent encounter | CPT/HCPCS: 97597 ==

== ENCOUNTER → 2021-03-07 | Outpatient (CLI) | payer MEDICARE | END | disposition home or self-care (01) | LOC: WOUND 13:52 | PROVIDERS: ATTEND Internal Medicine | DX: E11.622 Type 2 diabetes mellitus with other skin ulcer (principal); L97.812 Non-pressure chronic ulcer of other part of right lower leg with fat layer exposed; S81.812D Laceration without foreign body, left lower leg, subsequent encounter; S80.11XD Contusion of right lower leg, subsequent encounter; S80.12XD Contusion of left lower leg, subsequent encounter; J44.9 Chronic obstructive pulmonary disease, unspecified; I25.2 Old myocardial infarction; I25.10 Atherosclerotic heart disease of native coronary artery without angina pectoris; K21.9 Gastro-esophageal reflux disease without esophagitis; E78.5 Hyperlipidemia, unspecified; I11.0 Hypertensive heart disease with heart failure; I50.32 Chronic diastolic (congestive) heart failure; I87.8 Other specified disorders of veins; I48.0 Paroxysmal atrial fibrillation; F41.9 Anxiety disorder, unspecified; F32.9 Major depressive disorder, single episode, unspecified; Z87.01 Personal history of pneumonia (recurrent); Z87.891 Personal history of nicotine dependence; Z86.718 Personal history of other venous thrombosis and embolism; Z95.1 Presence of aortocoronary bypass graft; Z95.4 Presence of other heart-valve replacement; Z79.01 Long term (current) use of anticoagulants; Z79.899 Other long term (current) drug therapy; Z90.49 Acquired absence of other specified parts of digestive tract; W19.XXXD Unspecified fall, subsequent encounter; X58.XXXD Exposure to other specified factors, subsequent encounter | CPT/HCPCS: 97597 ==